=== PATIENT | male | born 1945 | race Caucasian/White ===

== ENCOUNTER → 2017-04-10 | Outpatient (CLI) | payer MEDICARE, OTHER ==
[2017-04-10 18:31] LABS: Blood Urea Nitrogen 15 mg/dL (9-20); Non-African American GFR(MDRD) >60 (>60 ml/min/1.73 sqM)
--- NOTE | 2017-04-10 19:08 | CT ---
EXAMINATION TYPE: CT chest w con DATE OF EXAM: 04/10/2017 COMPARISON: NONE HISTORY: Dry cough x [address] DLP: 386.90 mGycm Automated exposure control for dose reduction was used. CONTRAST: CT scan of the chest is performed with IV Contrast, patient injected with 100 mL of Omnipaque 300. FINDINGS: There is some mild reticular subpleural density in the posterior right upper lobe. There is no eviden ce of a pulmonary mass. There is no pleural effusion. Heart size is normal. There is no pericardial e ffusion. There are no hilar masses. There is no mediastinal adenopathy. Thoracic aorta is shows no ev idence of aneurysm or dissection. I see no obvious filling defect in the pulmonary arteries. The bony thorax appears intact. IMPRESSION: Minimal reticular density in the posterior right upper lobe consistent with scarring. Ot herwise negative CT scan of the chest. I do not see a cause for coughing.
== END ==
LOC: RADCTMAIN 17:45
PROVIDERS: ATTEND Internal Medicine
DX: R05 Cough (principal)
CPT/HCPCS: 82565; 84520; 71260; 36415; Q9967

== ENCOUNTER 2017-04-21 09:48 | Day surgery (SDC) | payer MEDICARE, OTHER ==
[~2017-04-21 09:48] MED LIST: LACTATED RINGERS 1,000 ML IV SCH; LIDOCAINE 1% 20 ML VIAL (10MG/ML) FOR IV START INTRADERMA PRN; Pre Op ABX Message 1 EACH MISC MISCELLANE ONE
[2017-04-21 11:20] LABS: Glucose,Whole Blood 100 mg/dL (75-99)
[2017-04-21] MEDS ORDERED: PROPOFOL 10 MG/ML 20 ML VIAL IV ONE (12:20)
[2017-04-21] MEDS ORDERED: GLYCOPYRROLATE 0.2 MG/ML 2 ML VIAL ONE (12:20)
[2017-04-21] MEDS ORDERED: LIDOCAINE 1% INJ 10MG/ML (20 ML MDV) ONE (12:20)
--- NOTE | 2017-04-21 13:08 | PCN ---
PROCEDURE NOTE PROCEDURE: Bronchoscopy and bronchoalveolar lavage of the inferior lingula. PREOPERATIVE DIAGNOSIS: Chronic cough. POSTOPERATIVE DIAGNOSIS: Chronic cough. ANESTHESIA USED: IV conscious sedation, please refer to the Anesthesia documentation. DESCRIPTION OF PROCEDURE: Patient was prepared according to the bronchoscope protocol. O2 was applied via nasal cannula. Oxygen saturation was monitored via pulse oximetry. Blood pressure was intermittently monitored. Cardiac rhythm was continuously monitored. After adequate IV conscious sedation, 2 mL of lidocaine were instilled into the right naris, the bronchoscope was advanced through the right naris down to the area of the vocal cords. Vocal cords were patent, and free of any lesions. Lidocaine was applied over the vocal cords, the bronchoscope was advanced further down. Thorough examination was done of the trachea, lopez, right upper lobe, right middle lobe, right lower lobe. left upper lobe. lingula and left lower lobe. There was no evidence of any endobronchial lesions, there was no evidence of any purulent secretions in the airways, and there was no evidence of any bleeding in the airways. The bronchoscope was wedged into the inferior segment of the lingula and the bronchoalveolar lavage was done. The fluid was retrieved and sent for definitive diagnostic studies. The procedure was well tolerated, no evidence of any immediate complications. MMODL / IJN: [id number] /
[2017-04-21 16:24] LABS: RBC, Body Fluid 37 /uL
[2017-04-22] MEDS ORDERED: LIDOCAINE 2% (PF) 20 MG/ML 10ML INHALATION ONE (05:00)
[2017-04-22] MEDS ORDERED: LACTATED RINGERS 1,000 ML IV ONE (05:00)
[2017-04-22] MEDS ORDERED: ALBUTEROL NEB (CONC) 2.5 MG/0.5 ML INHALATION ONE (05:00)
--- NOTE | 2017-04-24 07:02 | CDI ---
Documentation Clarification OP Dear Dr. Quigley, Please provide clarification regarding the type of sedation provided. The Procedure note states that Conscious sedation was used. On the Anesthesia Record, Unconscious Sedation is circled. PLEASE RESPOND TO THIS QUERY BY DICTATING AN ADDENDUM TO YOUR PROCEDURE NOTE. Thank you for your assistance, LUPIS Mckay If you have any questions, please contact Product Safety Lead, Katrin Paulson at [phone] [facility]
== END 2017-04-21 13:21 | disposition home or self-care (01) ==
LOC: ORWHC2ENDO 09:48
PROVIDERS: ATTEND Internal Medicine
DX: R05 Cough (principal); K21.9 Gastro-esophageal reflux disease without esophagitis; E03.9 Hypothyroidism, unspecified; E78.00 Pure hypercholesterolemia, unspecified; J30.2 Other seasonal allergic rhinitis; Z79.82 Long term (current) use of aspirin; Z79.52 Long term (current) use of systemic steroids; Z79.899 Other long term (current) drug therapy
CPT/HCPCS: 94640; 87798 ×4; 87496; 87498; 87529 ×2; 88108; 88305; 89050; 87252; 87502 ×2; 87070; 87205; 87116; 87102; 87077; 87186; 87206; 31624; J2001 ×2; J2704

== ENCOUNTER → 2018-10-01 | Outpatient (CLI) | payer MEDICARE, OTHER ==
--- NOTE | 2018-10-06 08:44 | CT ---
EXAMINATION TYPE: CT chest w con DATE OF EXAM: 10/01/2018 COMPARISON: 04/10/2017 HISTORY: Sarcoidosis, unspecified CT DLP: 555 mGycm. Automated Exposure Control for Dose Reduction was Utilized. TECHNIQUE: CT scan of the thorax is performed following with IV Contrast, patient injected with 100 mL of Isovue 300. FINDINGS: LUNGS: The lungs are grossly clear, there is no concerning parenchymal mass or nodule identified. Min imal scarring is again noted in the posterior right upper lobe as noted on the prior exam. No interlo bular septal thickening is seen. No honeycombing. No sizable pulmonary nodules. There is no pleural e ffusion or pneumothorax seen. The tracheobronchial tree is patent. MEDIASTINUM: There are no greater than 1 cm hilar or mediastinal lymph nodes. No pericardial effusi on is seen. Moderate coronary artery calcifications are seen. OTHER: There is slight thickening of the left adrenal gland, suggesting adrenal gland hyperplasia. T here is decreased attenuation of the hepatic parenchyma, limiting evaluation for hepatic masses and m ost commonly related to mild hepatic steatosis. There are bilateral renal cysts partially visualized on the right and subcentimeter in the left. There is a very small hiatal hernia present. Minimal mult ilevel degenerative changes of the spine are noted. IMPRESSION: No parenchymal or mediastinal lymphatic CT evidence of sarcoidosis involvement at this ti me. Incidental findings as described above.
== END ==
LOC: RADCTMAIN 10:41
PROVIDERS: ATTEND Internal Medicine Rheumatology
DX: D86.9 Sarcoidosis, unspecified (principal)
CPT/HCPCS: 82565; 84520; 71260; 36415; Q9967

== ENCOUNTER → 2019-05-03 | Outpatient (CLI) | payer MEDICARE ==
--- NOTE | 2019-05-03 13:48 | MR ---
EXAMINATION TYPE: MR shoulder RT wo con DATE OF EXAM: 05/03/2019 COMPARISON: Plain film 04/19/2019 HISTORY: Right shoulder pain TECHNIQUE: Multiplanar, multisequence imaging of the right shoulder is performed without contrast. FINDINGS: Rotator Cuff: Markedly attenuated, there is partial full-thickness tear present involving the suprasp inatus tendon peripherally, increased signal is present within the tendon Acromioclavicular Joint: Arthropathy changes are present causing mass effect on the musculotendinous junction of supraspinatus and there is a distal acromial spur, fluid present in the subacromial subde ltoid bursa Glenohumeral Joint: Arthropathy change with remodeling, marginal spurring and joint space loss and th ere is subchondral geode formation at the bony labrum Labrum: Labrum shows some abnormal intrasubstance signal and there is an attenuated appearance along the superior labrum compatible with possible degenerative tear, fraying Biceps Tendon: The long head of biceps is in normal location within bicipital groove but is somewhat attenuated, there is fluid signal along the tendon sheath and tendon. Bone marrow signal: Pseudocysts are present within the humeral head. Some remodeling of the humeral h ead and superior margin is present which corresponds to the plain film findings, difficult to exclude some humeral head collapse. Other: There is a joint effusion present. Fluid signal is present within the soft tissues about the j oint. IMPRESSION: Osteoarthritis, also full-thickness rotator cuff tear with marked tendinosis. Correlate for impingeme nt. Some possible humeral head collapse as described with pseudocysts present within the humeral head . Labral findings as described.
== END | disposition home or self-care (01) ==
LOC: RADMRIMAIN 09:41
PROVIDERS: ATTEND Orthopaedic Surgery
DX: M19.011 Primary osteoarthritis, right shoulder (principal); M75.121 Complete rotator cuff tear or rupture of right shoulder, not specified as traumatic

== ENCOUNTER 2019-06-16 11:05 | Day surgery (SDC) | payer MEDICARE ==
--- NOTE | 2019-06-15 20:52 | HP ---
HISTORY AND PHYSICAL DATE OF SURGERY: 06/16/2019 Daniel Mandujano is a 73-year-old patient seen with progressive right shoulder pain. We discussed treatment options. He elected to proceed with right shoulder arthroscopy. Consent was obtained. Medical clearance was provided by Dr. Hernandez. PAST MEDICAL HISTORY: Hypothyroidism, hypertension. PAST SURGICAL HISTORY: Left total knee arthroplasty. DAILY MEDICATIONS: Levothyroxine. ALLERGIES: NONE. SOCIAL HISTORY: He denies tobacco use. PHYSICAL EVALUATION OF RIGHT SHOULDER: Flexion 150 degrees. Abduction is 120 degrees. External rotation is 30 degrees with pain and weakness. Tenderness along the anterolateral acromion and rotator cuff insertion site. Impingement is positive at 90. Drop-arm sign is positive. Distal neurovascular exam is intact. RADIOGRAPHS: Radiographs of the right shoulder show type 2 anterior acromion, acromioclavicular joint osteoarthritis, cystic changes of the tuberosity. Right shoulder MRI shows rotator cuff tear, acromioclavicular and glenohumeral joint osteoarthritic changes. IMPRESSION: 1. Right shoulder impingement with rotator cuff tear. 2. Right shoulder acromioclavicular osteoarthritis. 3. Right shoulder glenohumeral joint osteoarthritis. 4. Hypothyroidism. PLAN: Right shoulder arthroscopy with subacromial decompression, arthroscopic rotator cuff repair, Lisandra procedure and debridement. MMODL / IJN: [id number] /
[~2019-06-16 11:05] MED LIST changes: +DEXAMETHASONE SOD PHOSPHATE 10 MG/ML 1 ML VIAL IV ONE; +HYDROmorphone 0.5 MG/0.5 ML SYRINGE IVP PRN; -LIDOCAINE 1% 20 ML VIAL (10MG/ML) FOR IV START INTRADERMA PRN; +ONDANSETRON 4 MG/2 ML VIAL IVP ONE; -Pre Op ABX Message 1 EACH MISC MISCELLANE ONE
[2019-06-16] MEDS ORDERED: LIDOCAINE 1% 20 ML VIAL (10MG/ML) FOR IV START INTRADERMA ONE (12:17)
[2019-06-16] MEDS: MIDAZOLAM 2 MG/2 ML VIAL IV PRN ×2 (12:39→12:40)
[2019-06-16] MEDS ORDERED: LIDOCAINE 1% INJ 10MG/ML (20 ML MDV) ONE (13:01)
[2019-06-16] MEDS ORDERED: DEXAMETHASONE SOD PHOSPHATE 4 MG/ML 1 ML VIAL ONE (13:01)
[2019-06-16] MEDS ORDERED: PROPOFOL 10 MG/ML 20 ML VIAL IV ONE (13:01)
[2019-06-16] MEDS ORDERED: ROPIVACAINE 5 MG/ML 30 ML VIAL ONE (13:01)
[2019-06-16] MEDS ORDERED: SUCCINYLCHOLINE CHLORIDE 100 MG/5 ML SYR IV ONE (13:01)
[2019-06-16] MEDS ORDERED: fentaNYL (PF) 50 MCG/ML 2 ML AMP ONE (13:01)
[2019-06-16] MEDS ORDERED: MIDAZOLAM 2 MG/2 ML VIAL ONE (13:01)
--- NOTE | 2019-06-16 15:00 | P.OP ---
Date of Procedure: 06/16/19 Preoperative Diagnosis: Right shoulder impingement Postoperative Diagnosis: 1. Right shoulder rotator cuff tear 2. Right shoulder impingement 3. Right shoulder acromioclavicular joint osteoarthritis 4. Right shoulder superficial superior labral tear Procedure(s) Performed: 1. Right shoulder arthroscopic rotator cuff repair 2. Right shoulder arthroscopic subacromial decompression 3. Right shoulder arthroscopic Lisandra procedure 4. Right shoulder arthroscopic debridement labral tear Implants: 44.75 Arthrex swivel lock anchors Anesthesia: GETA, regional (Interscalene block) Surgeon: Mac Souza [employer] Lab Worker #1: Antonio Clark Estimated Blood Loss (ml): 10 Pathology: none sent Condition: stable Disposition: PACU Indications for Procedure: 73-year-old patient seen with progressive right shoulder pain. After treatment options were discussed, he elected to proceed with arthroscopy. Operative Findings: See description of procedure Description of Procedure: Patient underwent an interscalene block by department of anesthesia for postoperative pain management. The patient was then taken to the operative suite. The patient underwent a general anesthetic by the department of anesthesia. The patient was placed into a lateral position and secured. There was appropriate padding of the bony prominence. Right shoulder was then prepped and draped in normal sterile orthopedic fashion. We placed the extremity in 10 pounds of longitudinal traction. A posterior incision was now made for a posterior working portal site. The trocar and cannula were inserted into the glenohumeral joint. Arthroscopy was initiated. Spinal needle was now inserted anteriorly, to ascertain the anterior working portal site. An incision was now made in that area, a trocar was inserted followed by a probe. There was superficial tearing of the superior labrum. The biceps tendon was absent with only a remnant stump and a few fibers. There were grade 1/2 chondromalacia changes of the glenohumeral joint with no osteochondral tears present. I debrided that superficial labral tear getting down to stable labral tissue. I debrided the residual biceps stump. Residual labrum was probed and found to be stable. Instruments were now removed from glenohumeral joint. Utilizing the posterior working portal site, the trocar and cannula were inserted into the subacromial space. Arthroscopy initiated. I made an incision 2 fingerbreadths lateral to the acromion. I introduced my trocar followed by my ArthroCare ablator. I now began ablating thick subacromial bursal tissue, which exposed the undersurface of the anterior acromion. There was diminished subacromial space. There was a very prominent anterior acromion. A motorized bur was introduced and a subacromial decompression was performed. I also excised some osteophytes off the inferior aspect of the distal clavicle. The AC joint was visualized and noted to be fairly arthritic. The motorized bur was introdu yash in the anterior portal site and a Lisandra procedure was performed without difficulty, decompressing the AC joint nicely. I turned my attention to the rotator cuff. There was a 2. 53 cm rotator cuff tear. I debrided the margins getting down to stable tendon tissue. I introduced my motorized bur and abraded the footprint area, getting some petechial bleeding. I now made an accessory portal site off the lateral aspect of the acromion. I punched 2 holes medial for medial row fixation with the assistance of [place] PEREZ carefully tapping the punch with a mallet as I held the punch and the camera. I now introduced both anchors into the pre-punched holes and [place] PEREZ tapped them with the mallet as I held anchors and the camera. Mt PEREZ now screwed the anchors in place a while I held the anchor guide and camera. All 8 limbs of suture were now passed through good bites of rotator cuff tendon. I now punched 2 holes for lateral row fixation again I held the punch and camera while [place] PEREZ used a mallet to tap in the punch. We now passed sutures through both anchors and individually I introduced the anchors into the pre-punch holes I held the anchor guide in position with one hand holding the camera with the other hand while Mt PEREZ tensioned the sutures and screwed in the anchors one at a time. All residual suture limbs were now clipped. We had good compression of the tendon along the entire footprint. I injected 1 mL Renyte intra-articular. Instruments now removed from the portal sites. All portal sites were approximated with nylon suture. Sterile dressings were applied followed by a shoulder immobilizer. Antonio PEREZ assisted in this complex case. The patient was awakened, transferred to a bed, and taken to recovery in stable c ondition.
[2019-06-16 15:03] VITALS: TEMP 96.8
[2019-06-16 15:15] VITALS: RESP 16
[2019-06-16 16:02] VITALS: BP 128/77; PULSE 79
--- NOTE | 2019-06-17 07:33 | P.ANPRN ---
Procedure Note - Anesthesia - Nerve Block Performed Right Interscalene Single Time Out Performed: Yes Date of Procedure: 06/16/19 Procedure Start Time: 12:39 Procedure Stop Time: 12:43 Location of Patient Procedure: PreOp Indication: Acute Post-Operative Pain, Requested by Surgeon Sedation Type: Sedate with meaningful contact maintained Preparation: Sterile Prep Position: Supine Needle Types: Pajunk Needle Gauge: 21 Ultrasound used to visualize needle placement: Yes Ultrasound used to observe medication spread: Yes Blood Aspirated: No Pain Paresthesia on Injection Noted: No Resistance on Injection: Normal Image Stored and Saved: Yes Events: Uneventful and Well Tolerated (ropi .5% 30cc plus dexamethasone 4mg)
== END 2019-06-16 16:17 | disposition home or self-care (01) ==
LOC: OR 11:05
PROVIDERS: ATTEND Orthopaedic Surgery
DX: M75.101 Unspecified rotator cuff tear or rupture of right shoulder, not specified as traumatic (principal); M75.41 Impingement syndrome of right shoulder; M19.011 Primary osteoarthritis, right shoulder; S43.431A Superior glenoid labrum lesion of right shoulder, initial encounter; M25.711 Osteophyte, right shoulder; X58.XXXA Exposure to other specified factors, initial encounter; I10 Essential (primary) hypertension; E03.9 Hypothyroidism, unspecified; Z96.652 Presence of left artificial knee joint; Z79.82 Long term (current) use of aspirin; Z79.890 Hormone replacement therapy
CPT/HCPCS: 29826; 29827; 29824; 64415; 76942; C1713 ×2; Q4212; J2250; J1100 ×2; J0690; J2405; J2001; J3010; J2795; J0330; J2704

== ENCOUNTER 2019-09-26 12:05 | Inpatient (IN) | payer MEDICARE ==
[2019-09-26] MEDS ORDERED: ASPIRIN 81 MG PO STA (12:50)
[2019-09-26] MEDS ORDERED: DILTIAZEM DRIP BOLUS FROM BAG 1 MG SOLN IV ONE ×3 (12:50→14:23)
--- NOTE | 2019-09-26 13:01 | ED ---
General Adult HPI - General Chief complaint: Arrhythmia/Palpitations Stated complaint: Palpitations Time Seen by Provider: 09/26/19 12:19 Source: patient, RN/MD, RN notes reviewed Mode of arrival: ambulatory Limitations: no limitations - History of Present Illness Initial comments: Patient is a pleasant 73-year-old male presenting to the emergency Department with complaints of palpitations. Onset of symptoms was a couple months ago. Symptoms have progressively worsened since that time. Patient does have some mild chest pressure. Patient feels his heart is racing. Patient does have some dyspnea with exertion. Patient has fatigue. No history of similar symptoms previously. Patient did see his primary care physician Dr. Torres prior to arriv al who recommended patient come to the emergency department. He did identify atrial flutter with a 2-1 conduction rate on EKG with a heart rate of 154. - Related Data Home Medications Medication Instructions Recorded Confirmed Aspirin 81 mg PO DAILY 04/17/17 06/13/19 Levothyroxine Sodium [Synthroid] 100 mcg PO QAM 04/17/17 06/16/19 Previous Rx's Medication Instructions Recorded Hydrocodone/Acetaminophen [[place] 1 each PO Q6HR PRN #28 tab 06/16/19 5-325] Allergies Allergy/AdvReac Type Severity Reaction Status Date / Time No Known Allergies Allergy Verified 09/26/19 12:10 Review of Systems ROS Statement: Those systems with pertinent positive or pertinent negative responses have been documented in the HPI. ROS Other: All systems not noted in ROS Statement are negative. Constitutional: Denies: fever Eyes: Denies: eye pain ENT: Denies: ear pain Respiratory: Reports: as per HPI. Denies: cough Cardiovascular: Reports: as per HPI, chest pain, palpitations Endocrine: Reports: fatigue Gastrointestinal: Denies: abdominal pain Genitourinary: Denies: dysuria Musculoskeletal: Denies: back pain Skin: Denies: rash Neurological: Denies: weakness Past Medical History Past Medical History: Osteoarthritis (OA) Additional Past Medical History / Comment(s): Chronic cough. History of Any Multi-Drug Resistant Organisms: None Reported Past Surgical History: Adenoidectomy, Hernia Repair, Joint Replacement, Orthopedic Surgery, Tonsillectomy Additional Past Surgical History / Comment(s): Left knee replaced. LEFT ARTHROSCOPY. Past Anesthesia/Blood Transfusion Reactions: No Reported Reaction Past Psychological History: No Psychological Hx Reported Smoking Status: Never smoker Past Alcohol Use History: Occasional Past Drug Use History: None Reported - Past Family History Mother Family Medical History: No Reported History General Exam Limitations: no limitations General appearance: alert, in no apparent distress Head exam: Present: normocephalic Eye exam: Present: normal appearance Neck exam: Present: normal inspection Respiratory exam: Present: normal lung sounds bilaterally Cardiovascular Exam: Present: tachycardia GI/Abdominal exam: Present: soft. Absent: tenderness Extremities exam: Present: normal inspection. Absent: pedal edema, calf tenderness Neurological exam: Present: alert Psychiatric exam: Present: normal affect, normal mood Skin exam: Present: normal color Course Vital Signs 09/26/19 09/26/19 09/26/19 12:10 13:21 14:02 Temperature 97.8 F Pulse Rate 156 H 156 H 154 H Respiratory 18 18 18 Rate Blood Pressure 135/97 126/102 127/104 O2 Sat by Pulse 96 97 95 Oximetry 09/26/19 09/26/19 14:09 14:24 Temperature Pulse Rate 154 H 154 H Respiratory 20 18 Rate Blood Pressure O2 Sat by Pulse 97 Oximetry EKG Findings - EKG Comments: EKG Findings:: Neuro complex tachycardia with a room of 156. Suspicion for underlying atrial flutter. [place] 134. QRS 78. QT to 46. QTc 412. Normal axis. Normal QRS. Nonspecific ST-T. Medical Decision Making - Medical Decision Making Patient reevaluated and updated. Heart rate 150. Cardizem drip increased. Additional bolus given. Patient updated on results and plan. Patient will be started on heparin. Case also discussed in detail with Dr. Persaud, who will admit covering for Dr. Hernandez. - Lab Data Result diagrams: 09/26/19 12:32 09/26/19 12:32 Lab Results 09/26/19 09/26/19 09/26/19 Range/Units 12:32 12:32 12:32 WBC 5.5 (3.8-10.6) k/uL RBC 4.83 (4.30-5.90) m/uL Hgb 15.2 (13.0-17.5) gm/dL Hct 46.4 (39.0-53.0) % MCV 96.0 (80.0-100.0) fL MCH 31.4 (25.0-35.0) pg MCHC 32.7 (31.0-37.0) g/dL RDW 13.3 (11.5-15.5) % Plt Count 189 (150-450) k/uL Neutrophils % 67 % Lymphocytes % 20 % Monocytes % 8 % Eosinophils % 2 % Basophils % 1 % Neutrophils # 3.7 (1.3-7.7) k/uL Lymphocytes # 1.1 (1.0-4.8) k/uL Monocytes # 0.4 (0-1.0) k/uL Eosinophils # 0.1 (0-0.7) k/uL Basophils # 0.0 (0-0.2) k/uL PT 10.6 (9.0-12.0) sec INR 1.0 (<1.2) APTT 24.2 (22.0-30.0) sec Sodium 138 (137-145) mmol/L Potassium 4.5 (3.5-5.1) mmol/L Chloride 107 (98-107) mmol/L Carbon Dioxide 25 (22-30) mmol/L Anion Gap 6 mmol/L BUN 20 (9-20) mg/dL Creatinine 0.80 (0.66-1.25) mg/dL Est GFR (CKD-EPI)AfAm >90 (>60 ml/min/1.73 sqM) Est GFR (CKD-EPI)NonAf 88 (>60 ml/min/1.73 sqM) Glucose 102 H (74-99) mg/dL Calcium 9.6 (8.4-10.2) mg/dL Magnesium 1.9 (1.6-2.3) mg/dL Total Bilirubin 0.9 (0.2-1.3) mg/dL AST 32 (17-59) U/L ALT 27 (4-49) U/L Alkaline Phosphatase 83 (38-126) U/L Creatine Kinase 163 (55-170) U/L Troponin I (0.000-0.034) ng/mL Total Protein 6.7 (6.3-8.2) g/dL Albumin 4.1 (3.5-5.0) g/dL TSH 2.460 (0.465-4.680) mIU/L Free T4 1.65 (0.78-2.19) ng/dL Free T3 pg/mL 4.6 (2.8-5.3) pg/ml 09/26/19 Range/Units 12:32 WBC (3.8-10.6) k/uL RBC (4.30-5.90) m/uL Hgb (13.0-17.5) gm/dL Hct (39.0-53.0) % MCV (80.0-100.0) fL MCH (25.0-35.0) pg MCHC (31.0-37.0) g/dL RDW (11.5-15.5) % Plt Count (150-450) k/uL Neutrophils % % Lymphocytes % % Monocytes % % Eosinophils % % Basophils % % Neutrophils # (1.3-7.7) k/uL Lymphocytes # (1.0-4.8) k/uL Monocytes # (0-1.0) k/uL Eosinophils # (0-0.7) k/uL Basophils # (0-0.2) k/uL PT (9.0-12.0) sec INR (<1.2) APTT (22.0-30.0) sec Sodium (137-145) mmol/L Potassium (3.5-5.1) mmol/L Chloride (98-107) mmol/L Carbon Dioxide (22-30) mmol/L Anion Gap mmol/L BUN (9-20) mg/dL Creatinine (0.66-1.25) mg/dL Est GFR (CKD-EPI)AfAm (>60 ml/min/1.73 sqM) Est GFR (CKD-EPI)NonAf (>60 ml/min/1.73 sqM) Glucose (74-99) mg/dL Calcium (8.4-10.2) mg/dL Magnesium (1.6-2.3) mg/dL Total Bilirubin (0.2-1.3) mg/dL AST (17-59) U/L ALT (4-49) U/L Alkaline Phosphatase (38-126) U/L Creatine Kinase (55-170) U/L Troponin I <0.012 (0.000-0.034) ng/mL Total Protein (6.3-8.2) g/dL Albumin (3.5-5.0) g/dL TSH (0.465-4.680) mIU/L Free T4 (0.78-2.19) ng/dL Free T3 pg/mL (2.8-5.3) pg/ml - Radiology Data Radiology results: image reviewed (Chest x-ray concerning for CHF) Critical Care Time Critical Care Time: Yes Total Critical Care Time: 32 Disposition Clinical Impression: Atrial flutter with rapid ventricular response Disposition: ADMITTED IP TO THIS HOSP Is patient prescribed a controlled substance at d/c from ED?: No Referrals: Yvon Hernandez MD [Primary Care Provider] - 1-2 days Decision Time: 14:31
[2019-09-26 13:05] LABS: Basophils % (A) 1 %; Eosinophils # (A) 0.1 k/uL (0-0.7); Eosinophils % (A) 2 %; HCT 46.4 % (39.0-53.0); HGB 15.2 gm/dL (13.0-17.5); Lymphocytes # (A) 1.1 k/uL (1.0-4.8); Lymphocytes % (A) 20 %; MCH 31.4 pg (25.0-35.0); MCHC 32.7 g/dL (31.0-37.0); Mean Platelet Volume 7.6; Monocytes # (A) 0.4 k/uL (0-1.0); Monocytes % (A) 8 %; Neutrophils # (A) 3.7 k/uL (1.3-7.7); Neutrophils % (A) 67 %; Platelet Count 189 k/uL (150-450); RBC 4.83 m/uL (4.30-5.90); RDW 13.3 % (11.5-15.5); WBC 5.5 k/uL (3.8-10.6)
--- NOTE | 2019-09-26 13:18 | XR ---
EXAMINATION TYPE: XR chest 2V DATE OF EXAM: 09/26/2019 COMPARISON: 10/24/2016 TECHNIQUE: PA and lateral views submitted. HISTORY: Cardiac dysrhythmia FINDINGS: A right lower lobe infiltrate and small bilateral pleural effusion. Increased interstitium with cardi omegaly. Atherosclerotic change aorta. Biapical pleural thickening. IMPRESSION: 1. Correlate for CHF. Right lower lobe infiltrate not excluded.
[2019-09-26 13:20] LABS: Partial Thromboplastin Time 24.2 sec (22.0-30.0); Prothrombin Time 10.6 sec (9.0-12.0)
[2019-09-26 13:28] LABS: ALT 27 U/L (4-49); AST 32 U/L (17-59); African American GFR (CKD) >90 (>60 ml/min/1.73 sqM); Albumin 4.1 g/dL (3.5-5.0); Alkaline Phosphatase 83 U/L (38-126); Anion Gap 6 mmol/L; Blood Urea Nitrogen 20 mg/dL (9-20); Calcium 9.6 mg/dL (8.4-10.2); Carbon Dioxide 25 mmol/L (22-30); Chloride 107 mmol/L (98-107); Creatine Kinase 163 U/L (55-170); Glucose 102 mg/dL (74-99); Magnesium 1.9 mg/dL (1.6-2.3); Non-African American GFR(CKD) 88 (>60 ml/min/1.73 sqM); Potassium 4.5 mmol/L (3.5-5.1); Sodium 138 mmol/L (137-145); Total Bilirubin 0.9 mg/dL (0.2-1.3); Total Protein 6.7 g/dL (6.3-8.2)
[2019-09-26] MEDS: DILTIAZEM 125 MG in SODIUM CHLORIDE 0.9% 100 ML IV SCH ×2 (13:35→20:28)
[2019-09-26 13:45] LABS: T4, Free (Free Thyroxine) 1.65 ng/dL (0.78-2.19)
[2019-09-26] MEDS ORDERED: ASPIRIN 325 MG TAB PO STA (14:32)
[2019-09-26] MEDS ORDERED: HEPARIN SODIUM,PORCINE 5,000 UNIT/ML 1 ML VIAL IV ONE (14:33)
[2019-09-26] MEDS: FUROSEMIDE 10 MG/ML 4 ML VIAL IV SCH ×2 (14:58→23:19)
[2019-09-26] MEDS: HEPARIN SOD,PORK IN 0.45% NACL 25,000 UNIT in 0.45% NACL 1 250ML.BAG IV SCH (14:59)
[2019-09-26] MEDS: NITROGLYCERIN OINT 1 INCH/GM PACKET TOPICAL SCH ×2 (18:55→20:08)
--- NOTE | 2019-09-26 23:37 | P.HPIM ---
History of Present Illness H&P Date: 09/26/19 Chief Complaint: Short of breath History of presenting complaint: This is a pleasant 73-year-old patient of Dr. Yvon Hernandez. No rebound rather good health. For 2 months patient been having episodes which he describes as having palpitations. Also episodes of losing energy. Getting tired easily. Sometimes elephant sitting on the chest. The symptoms have been progressive. Last night the symptoms were much worse and decided to come in. Has no other prior prior cardiac history. Review of systems: GEN.: Tired EYES: None HEENT: None NECK: None RESPIRATORY: As above CARDIOVASCULAR: As above GASTROINTESTINAL: None GENITOURINARY: Slow urinary stream MUSCULOSKELETAL: Joint pains LYMPHATICS: None HEMATOLOGICAL: None PSYCHIATRY: None NEUROLOGICAL: None Past medical history to include: Osteoarthritis Social history: Does not smoke. Alcohol occasionally. Retired. Lives alone. Family history: Reviewed, noncontributory to presentation Physical examination: VITAL SIGNS: 97.8, 156, 18, 135/97, 96% on room air GENERAL: BMI 28.3, laying in bed awake. EYES: Pupils equal. Conjunctiva normal. HEENT: External appearance of nose and ears normal, oral cavity grossly normal. NECK: JVD not raised; masses not palpable. HEART: First and second heart sounds are normal; no edema. LUNGS: Respiratory rate normal; clear to auscultation. ABDOMEN: Soft, nontender, liver spleen not palpable, no masses palpable. PSYCH: Alert and oriented x3; mood and affect normal. MUSCULOSKELETAL: Evidence of OA especially in the hands NEUROLOGICAL: Cranial nerves grossly intact; no facial asymmetry, power and sensation grossly intact. LYMPHATICS: No lymph nodes palpable in the axilla and neck INVESTIGATIONS, reviewed in the clinical context: White count 5.5 hemoglobin 15.2 platelets 189 potassium 4.5 creatinine 0.8 Troponin I less than 0.012, 0.015 proBNP 2160 TSH-normal free T4 normal Chest x-ray film personally reviewed by me-cardiomegaly and venous prominence EKG tracing-possible atrial tachycardia Assessment: -Possible uncontrolled atrial tachycardia going on for about 2 months -We'll rule out underlying cardiac ischemia -Acute congestive heart failure possibly from arrhythmia induced -Primary osteoarthritis Plan: Patient be started on IV Lasix. 2-D echocardiogram. Consultation made to cardiology/child care team lead. Care was discussed with the patient question answered. Estuardox for DVT prophylaxis. Past Medical History Past Medical History: Osteoarthritis (OA) Additional Past Medical History / Comment(s): Chronic cough. History of Any Multi-Drug Resistant Organisms: None Reported Past Surgical History: Adenoidectomy, Hernia Repair, Joint Replacement, Orthopedic Surgery, Tonsillectomy Additional Past Surgical History / Comment(s): Left knee replaced. LEFT ARTHROSCOPY. Past Anesthesia/Blood Transfusion Reactions: No Reported Reaction Past Psychological History: No Psychological Hx Reported Smoking Status: Never smoker Past Alcohol Use History: Occasional Past Drug Use History: None Reported - Past Family History Mother Family Medical History: No Reported History Medications and Allergies Home Medications Medication Instructions Recorded Confirmed Type Aspirin 81 mg PO DAILY 04/17/17 09/26/19 History Levothyroxine Sodium [Synthroid] 100 mcg PO QAM 04/17/17 09/26/19 History Meloxicam [Mobic] 15 mg PO DAILY 09/26/19 09/26/19 History Allergies Allergy/AdvReac Type Severity Reaction Status Date / Time No Known Allergies Allergy Verified 09/26/19 15:54 Physical Exam Vitals: Vital Signs Temp Pulse Pulse Resp BP BP Pulse Ox 09/26/19 20:30 98.1 F 65 18 117/76 95 09/26/19 16:00 125 H 18 110/88 97 09/26/19 15:20 99 18 122/93 96 09/26/19 14:35 133 H 18 113/96 09/26/19 14:24 154 H 18 97 09/26/19 14:09 154 H 20 09/26/19 14:02 154 H 18 127/104 95 09/26/19 13:21 156 H 18 126/102 97 09/26/19 12:10 97.8 F 156 H 18 135/97 96 Intake and Output 09/26/19 09/26/19 09/27/19 14:59 22:59 06:59 Intake Total 2.5 63.833 Output Total 2450 Balance 2.5 -2386.167 Intake: Intake, IV Titration 2.5 63.833 Amount Diltiazem 125 mg In 2.5 63.833 Sodium Chloride 0.9% 100 ml @ 5 MG/HR 5 mls/hr IV .Q24H [facility] Rx#:[id number] Output: Urine 2450 Other: Weight 89.358 kg 89.358 kg Results CBC & Chem 7: 09/26/19 12:32 09/26/19 12:32 Labs: Abnormal Lab Results - Last 24 Hours (Table) 09/26/19 09/26/19 Range/Units 12:32 20:15 APTT 48.8 H (22.0-30.0) sec Glucose 102 H (74-99) mg/dL Thrombosis Risk Factor Assmnt - Choose All That Apply Any of the Below Risk Factors Present?: Yes Other Risk Factors: Yes Each Risk Factor Represents 2 Points: Age 61-74 years Thrombosis Risk Factor Assessment Total Risk Factor Score: 2 Thrombosis Risk Factor Assessment Level: Low Risk
[2019-09-27] MEDS: DILTIAZEM 125 MG in SODIUM CHLORIDE 0.9% 100 ML IV SCH (04:59)
[2019-09-27] MEDS: FUROSEMIDE 10 MG/ML 4 ML VIAL IV SCH (06:11)
[2019-09-27] MEDS: LEVOTHYROXINE 100 MCG TAB PO SCH (06:11)
[2019-09-27 07:01] LABS: African American GFR (CKD) >90 (>60 ml/min/1.73 sqM); Anion Gap 9 mmol/L; Blood Urea Nitrogen 15 mg/dL (9-20); Calcium 9.3 mg/dL (8.4-10.2); Carbon Dioxide 27 mmol/L (22-30); Chloride 101 mmol/L (98-107); Glucose 101 mg/dL (74-99); Non-African American GFR(CKD) 88 (>60 ml/min/1.73 sqM); Potassium 3.6 mmol/L (3.5-5.1); Sodium 137 mmol/L (137-145)
[2019-09-27 07:02] LABS: Basophils # (A) 0.1 k/uL (0-0.2); Basophils % (A) 2 %; Eosinophils # (A) 0.2 k/uL (0-0.7); Eosinophils % (A) 3 %; HCT 47.1 % (39.0-53.0); HGB 15.6 gm/dL (13.0-17.5); Lymphocytes # (A) 1.3 k/uL (1.0-4.8); Lymphocytes % (A) 24 %; MCH 31.5 pg (25.0-35.0); MCHC 33.2 g/dL (31.0-37.0); MCV 95.1 fL (80.0-100.0); Mean Platelet Volume 7.3; Monocytes # (A) 0.6 k/uL (0-1.0); Monocytes % (A) 10 %; Neutrophils # (A) 3.2 k/uL (1.3-7.7); Neutrophils % (A) 58 %; Platelet Count 195 k/uL (150-450); RBC 4.96 m/uL (4.30-5.90); RDW 13.2 % (11.5-15.5); WBC 5.6 k/uL (3.8-10.6)
[2019-09-27 07:04] LABS: INR 1.1 (<1.2); Partial Thromboplastin Time 32.9 sec (22.0-30.0); Prothrombin Time 10.9 sec (9.0-12.0)
[2019-09-27] MEDS: HEPARIN SODIUM,PORCINE 5,000 UNIT/ML 1 ML VIAL IV PRN ×2 (08:02→14:17)
[2019-09-27] MEDS ORDERED: ASPIRIN 325 MG TAB PO SCH (09:00)
[2019-09-27] MEDS ORDERED: MELOXICAM 7.5 MG TAB PO SCH (09:00)
--- NOTE | 2019-09-27 09:09 | P.CRDCN ---
History of Present Illness Consult date: 09/27/19 Requesting physician: Yomi Persaud Consult reason: atrial flutter Chief complaint: Chest pressure , shortness of breath History of present illness: His is a pleasant 73-year-old gentleman with no prior documented history of hypertension, no diabetes, no hyperlipidemia, he is a nonsmoker, he does have a history of hypothyroidism. His home medications include Mobic 15 mg daily, Synthroid 100 g daily, aspirin 81 mg daily. According to the patient, for the last month and a half, he has been noticing himself to be exertionally short of breath. He states that he also gets midsternal chest pressure and heaviness, with associated shortness of breath, worse with activities. He does feel his heart fluttering at times. For these reasons he came to the emergency room for further evaluation and treatment. His chest x-ray on presentation here showed congestive heart failure. Right lower lobe infiltrate not excluded. EKG on presentation here showed atrial flutter with a rapid ventricular response. Patient was initiated on IV Cardizem drip, he continues to be in an atrial flu tter this morning, heart rate in the 70s to 80s. White blood cell count 5.6, hemoglobin 15.6, platelet count 195. Sodium 137, potassium 3.6, BUN 15, creatinine 0.8, magnesium 1.9. Troponins 0.012, 0.015, 0.015. TSH 2.4, free T4 1 0.6, BNP level 2160. At the time of my examination this morning, patient feels well, no complaints. Resting comfortably in bed at the time of my examination Past Medical History Past Medical History: Osteoarthritis (OA) Additional Past Medical History / Comment(s): Chronic cough. History of Any Multi-Drug Resistant Organisms: None Reported Past Surgical History: Adenoidectomy, Hernia Repair, Joint Replacement, Orthopedic Surgery, Tonsillectomy Additional Past Surgical History / Comment(s): Left knee replaced. LEFT ART HROSCOPY. Past Anesthesia/Blood Transfusion Reactions: No Reported Reaction Past Psychological History: No Psychological Hx Reported Smoking Status: Never smoker Past Alcohol Use History: Occasional Past Drug Use History: None Reported - Past Family History Mother Family Medical History: No Reported History Medications and Allergies Home Medications Medication Instructions Recorded Confirmed Type Aspirin 81 mg PO DAILY 04/17/17 09/26/19 History Levothyroxine Sodium [Synthroid] 100 mcg PO QAM 04/17/17 09/26/19 History Meloxicam [Mobic] 15 mg PO DAILY 09/26/19 09/26/19 History Allergies Allergy/AdvReac Type Severity Reaction Status Date / Time No Known Allergies Allergy Verified 09/26/19 15:54 Physical Exam Vitals: Vital Signs Temp Pulse Pulse Resp BP BP Pulse Ox 09/27/19 03:02 79 16 107/65 95 09/26/19 23:19 97.4 F L 92 18 116/78 96 09/26/19 20:30 98.1 F 65 18 117/76 95 09/26/19 16:00 125 H 18 110/88 97 09/26/19 15:20 99 18 122/93 96 09/26/19 14:35 133 H 18 113/96 09/26/19 14:24 154 H 18 97 09/26/19 14:09 154 H 20 09/26/19 14:02 154 H 18 127/104 95 09/26/19 13:21 156 H 18 126/102 97 09/26/19 12:10 97.8 F 156 H 18 135/97 96 Intake and Output 09/26/19 09/27/19 09/27/19 22:59 06:59 14:59 Intake Total 63.833 85.167 169.284 Output Total 2450 2490 800 Balance -2386.167 -2404.833 -630.716 Intake: Intake, IV Titration 63.833 85.167 169.284 Amount Diltiazem 125 mg In 63.833 85.167 Sodium Chloride 0.9% 100 ml @ 5 MG/HR 5 mls/hr IV .Q24H [facility] Rx#:[id number] Heparin Sod,Pork in 0.45% 169.284 NaCl 25,000 unit In 0.45 % NaCl 1 250ml.bag @ 11.1 UNITS/KG/HR 9.919 mls/hr IV .Q24H [facility] Rx#: [id number] Output: Urine 2450 2490 800 Other: # Voids 1 Weight 89.358 kg 85.2 kg PHYSICAL EXAMINATION: GENERAL: 73-year-old gentleman in no acute distress at the time of my examination HEENT: Head is atraumatic, normocephalic. Pupils equal, round. Sclera anicteric. Conjunctiva are clear. Mucous membranes of the mouth are moist. Neck is supple. There is no elevated jugular venous pressure. No carotid bruit is heard. HEART EXAMINATION: Heart S1 and S2 irregularly irregular CHEST EXAMINATION: Lungs are clear with mild diminished air entry to the bases ABDOMEN: Soft, nontender. Bowel sounds are heard. No organomegaly noted. EXTREMITIES: 2+ peripheral pulses with no evidence of peripheral edema and no calf tenderness noted. NEUROLOGIC patient is awake, alert and oriented 3 . . Results 09/27/19 06:09 09/27/19 06:09 Cardiac Enzymes 09/26/19 09/26/19 09/26/19 Range/Units 12:32 12:32 18:25 AST 32 (17-59) U/L Troponin I <0.012 0.015 (0.000-0.034) ng/mL 09/27/19 Range/Units 00:51 AST (17-59) U/L Troponin I 0.015 (0.000-0.034) ng/mL Coagulation 09/26/19 09/26/19 09/27/19 Range/Units 12:32 20:15 06:09 PT 10.6 10.9 (9.0-12.0) sec APTT 24.2 48.8 H 32.9 H (22.0-30.0) sec CBC 09/26/19 09/27/19 Range/Units 12:32 06:09 WBC 5.5 5.6 (3.8-10.6) k/uL RBC 4.83 4.96 (4.30-5.90) m/uL Hgb 15.2 15.6 (13.0-17.5) gm/dL Hct 46.4 47.1 (39.0-53.0) % Plt Count 189 195 (150-450) k/uL Comprehensive Metabolic Panel 09/26/19 09/27/19 Range/Units 12:32 06:09 Sodium 138 137 (137-145) mmol/L Potassium 4.5 3.6 (3.5-5.1) mmol/L Chloride 107 101 (98-107) mmol/L Carbon Dioxide 25 27 (22-30) mmol/L BUN 20 15 (9-20) mg/dL Creatinine 0.80 0.81 (0.66-1.25) mg/dL Glucose 102 H 101 H (74-99) mg/dL Calcium 9.6 9.3 (8.4-10.2) mg/dL AST 32 (17-59) U/L ALT 27 (4-49) U/L Alkaline Phosphatase 83 (38-126) U/L Total Protein 6.7 (6.3-8.2) g/dL Albumin 4.1 (3.5-5.0) g/dL Current Medications Generic Name Dose Route Start Last Admin Trade Name Freq PRN Reason Stop Dose Admin Aspirin 325 mg 09/27/19 09:00 09/27/19 08:21 Aspirin PO 325 mg DAILY [facility] Administration Furosemide 40 mg 09/26/19 14:45 09/27/19 06:11 Lasix IV 40 mg Q8H [facility] Administration Heparin Sodium (Porcine) 0 unit 09/26/19 14:33 09/27/19 08:02 Heparin IV 4,000 unit PER PROTOCOL PRN Administration Low PTT Protocol Diltiazem HCl 125 mg/ Sodium 125 mls @ 5 mls/hr 09/26/19 13:00 09/27/19 04:59 Chloride IV 10 mg/hr .Q24H [facility] 10 mls/hr Administration 5 MG/HR Heparin Sodium/Sodium Chloride 250 mls @ 9.919 mls/hr 09/26/19 14:45 09/27/19 08:03 25,000 unit/ Sodium Chloride IV 14.1 units/kg/hr .Q24H [facility] 12.599 mls/hr Titration Protocol 11.1 UNITS/KG/HR Levothyroxine Sodium 100 mcg 09/27/19 06:30 09/27/19 06:11 Synthroid PO 100 mcg 0630 [facility] Administration Meloxicam 15 mg 09/27/19 09:00 09/27/19 08:19 Mobic PO 15 mg DAILY [facility] Administration Sodium Chloride 10 ml 09/26/19 21:00 09/27/19 08:21 Saline Flush IV 10 ml BID [facility] Administration Intake and Output 09/26/19 09/27/19 09/27/19 22:59 06:59 14:59 Intake Total 63.833 85.167 169.284 Output Total 2780 6860 800 Balance -2386.167 -2404.833 -630.716 Intake: Intake, IV Titration 63.833 85.167 169.284 Amount Diltiazem 125 mg In 63.833 85.167 Sodium Chloride 0.9% 100 ml @ 5 MG/HR 5 mls/hr IV .Q24H [facility] Rx#:[id number] Heparin Sod,Pork in 0.45% 169.284 NaCl 25,000 unit In 0.45 % NaCl 1 250ml.bag @ 11.1 UNITS/KG/HR 9.919 mls/hr IV .Q24H [facility] Rx#: [id number] Output: Urine 2450 2490 800 Other: # Voids 1 Weight 89.358 kg 85.2 kg 09/27/19 06:09 09/27/19 06:09 EKG Interpretations (text) EKG shows atrial flutter with rapid ventricular response Assessment and Plan Plan: Assessment and plan #1 atrial flutter with rapid ventricular response, typical #2 cardiac risk factors negative for hypertension, no diabetes, no hyperlipidemia, patient is a nonsmoker #3 hypothyroidism #4 mild congestive heart failure, LV function unknown, could be secondary to rapid atrial flutter of unknown duration #5 chest pressure and heaviness with associated shortness of breath, likely secondary to rapid atrial flutter, cannot rule out underlying coronary artery disease. Initial troponin 0.012, subsequent troponin 0.015, 0.015. Plan We will obtain an echocardiogram with Doppler study. Patient's TSH level is normal. Patient has been educated regarding anticoagulation for stroke prevention. We will decrease his aspirin to 81 mg daily, add a beta everardo to his medication regime and discontinue the IV Cardizem. Discontinue Mobic. had been initiated on 40 mg of IV Lasix every 8 hourly yesterday, we will discontinue that this morning and put the patient on oral diuretics. Further recommendations to follow. DNP note has been reviewed, I agree with a documented findings and plan of care. Patient was seen and examined.
[2019-09-27] MEDS ORDERED: METOPROLOL TARTRATE 25 MG TAB PO SCH (09:15)
[2019-09-27] MEDS: FUROSEMIDE 40 MG TAB PO SCH (09:43)
[2019-09-27] MEDS ORDERED: ASPIRIN 325 MG TAB PO STA (11:02)
[2019-09-27] MEDS ORDERED: ALPRAZolam 0.5 MG TAB PO PRN (11:02)
[2019-09-27] MEDS ORDERED: SODIUM CHLORIDE 0.9% 1,000 ML in EMPTY BAG 1 BAG IV ONE (11:02)
[2019-09-27] MEDS ORDERED: ALPRAZolam 0.25 MG TAB PO PRN (11:02)
[2019-09-27] MEDS ORDERED: NITROGLYCERIN SL TABS 0.4 MG TAB SUBLINGUAL PRN (11:02)
[2019-09-27] MEDS ORDERED: ATORVASTATIN 80 MG TAB PO STA (11:02)
[2019-09-27 11:37] VITALS: BMI 26.9
[2019-09-27] MEDS: HEPARIN SOD,PORK IN 0.45% NACL 25,000 UNIT in 0.45% NACL 1 250ML.BAG IV SCH (14:18)
[2019-09-27] MEDS ORDERED: METOPROLOL TARTRATE 50 MG TAB PO STA (17:18)
--- NOTE | 2019-09-27 18:21 | P.PN ---
Progress Note - Text Progress Note Date: 09/27/19 Chief Complaint: Short of breath History of presenting complaint: This is a pleasant 73-year-old patient of Dr. Yvon Hernandez. rather good health. For 2 months patient been having episodes which he describes as having palpitations. Also episodes of losing energy. Getting tired easily. Sometimes elephant sitting on the chest. The symptoms have been progressive. Last night the symptoms were much worse and decided to come in. Has no other prior prior cardiac history. Admitted with-atrial flutter versus atrial tachycardia Today-feeling a bit better. On IV Cardizem drip. IV heparin. Heart is better controlled. Laying in bed. Review of systems: Was done for constitutional, cardiovascular, GI, pulmonary. relevant finding as above Active Medications Alprazolam (Xanax) 0.25 mg PO Q6HR PRN PRN Reason: Mild Anxiety Alprazolam (Xanax) 0.5 mg PO Q6HR PRN PRN Reason: Moderate Anxiety Aspirin (Aspirin) 81 mg PO DAILY [facility] Furosemide (Lasix) 40 mg PO DAILY [facility] Last Admin: 09/27/19 09:43 Dose: Not Given Documented by: Heparin Sodium (Porcine) (Heparin) 0 unit IV PER PROTOCOL PRN; Protocol PRN Reason: Low PTT Last Admin: 09/27/19 14:17 Dose: 2,130 unit Documented by: Heparin Sodium/Sodium Chloride (25,000 unit/ Sodium Chloride) 250 mls @ 9.919 mls/hr IV .Q24H [facility]; Protocol Last Titration: 09/27/19 17:27 Dose: 16.1 units/kg/hr, 14.39 mls/hr Documented by: Sodium Chloride 1,000 ml/ IV (Solution) 1,000 mls @ 85.2 mls/hr IV .[id number] ONE Stop: 09/27/19 22:46 Last Admin: 09/27/19 17:24 Dose: 85.2 mls/hr Documented by: Levothyroxine Sodium (Synthroid) 100 mcg PO 0630 [facility] Last Admin: 09/27/19 06:11 Dose: 100 mcg Documented by: Metoprolol Tartrate (Lopressor) 50 mg PO BID [facility] Nitroglycerin (Nitrostat) 0.4 mg SUBLINGUAL Q5M PRN PRN Reason: Chest Pain Sodium Chloride (Saline Flush) 10 ml IV BID [facility] Last Admin: 09/27/19 08:21 Dose: 10 ml Documented by: Physical examination: VITAL SIGNS: 98, 95, 14, 101/68, 96% on room air GENERAL: Laying in bed, comfortable. EYES: Pupils equal. Conjunctiva normal. HEENT: External appearance of nose and ears normal, oral cavity grossly normal. NECK: JVD not raised; masses not palpable. HEART: Heart sounds irregular; no edema. LUNGS: Respiratory rate normal; clear to auscultation. ABDOMEN: Soft, nontender, liver spleen not palpable, no masses palpable. PSYCH: Alert and oriented x3; mood and affect normal. MUSCULOSKELETAL: Evidence of OA especially in the hands INVESTIGATIONS, reviewed in the clinical context: White count 5.6 hemoglobin 15.6 potassium 3.6 creatinine 0.81 Previous testing White count 5.5 hemoglobin 15.2 platelets 189 potassium 4.5 creatinine 0.8 Troponin I less than 0.012, 0.015 proBNP 2160 TSH-normal free T4 normal Chest x-ray film personally reviewed by me-cardiomegaly and venous prominence EKG tracing-possible atrial tachycardia Assessment: -Possible atrial flutter with a rapid ventricular rate, rate better controlled -We'll rule out underlying cardiac ischemia -Acute congestive heart failure possibly from arrhythmia induced -Primary osteoarthritis Plan: Patient's age by cardiology to by mouth Lasix. Patient is on IV heparin and Lopressor. Follow along
[2019-09-28] MEDS ORDERED: DILTIAZEM 125 MG in SODIUM CHLORIDE 0.9% 100 ML IV SCH (02:00)
[2019-09-28 04:12] LABS: Basophils # (A) 0.1 k/uL (0-0.2); Basophils % (A) 1 %; Eosinophils # (A) 0.1 k/uL (0-0.7); Eosinophils % (A) 3 %; HCT 48.5 % (39.0-53.0); HGB 15.4 gm/dL (13.0-17.5); Lymphocytes # (A) 1.7 k/uL (1.0-4.8); Lymphocytes % (A) 32 %; MCH 30.4 pg (25.0-35.0); MCHC 31.8 g/dL (31.0-37.0); MCV 95.4 fL (80.0-100.0); Mean Platelet Volume 7.3; Monocytes # (A) 0.6 k/uL (0-1.0); Monocytes % (A) 10 %; Neutrophils # (A) 2.8 k/uL (1.3-7.7); Neutrophils % (A) 51 %; Platelet Count 187 k/uL (150-450); RBC 5.08 m/uL (4.30-5.90); RDW 13.2 % (11.5-15.5); WBC 5.4 k/uL (3.8-10.6)
[2019-09-28 04:21] LABS: INR 1.1 (<1.2); Prothrombin Time 11.4 sec (9.0-12.0)
[2019-09-28 06:02] LABS: Glucose,Whole Blood 94 mg/dL (75-99)
[2019-09-28] MEDS: LEVOTHYROXINE 100 MCG TAB PO SCH (06:02)
[2019-09-28] MEDS: ASPIRIN 81 MG PO SCH ×2 (06:03→08:17)
--- NOTE | 2019-09-28 07:56 | ECHOF ---
Referral Reason:CHF MEASUREMENTS -------- HEIGHT: 177.8 cm WEIGHT: 84.8 kg BP: 107/65 RVIDd: 3.7 cm (< 3.3) IVSd: 1.2 cm (0.6 - 1.1) LVIDd: 5.0 cm (3.9 - 5.3) LVPWd: 1.0 cm (0.6 - 1.1) IVSs: 1.9 cm LVIDs: 3.3 cm LVPWs: 2.1 cm LA Diam: 4.4 cm (2.7 - 3.8) LAESV Index (A-L): 43.05 ml/m Ao Diam: 3.5 cm (2.0 - 3.7) AV Cusp: 1.8 cm (1.5 - 2.6) MV EXCURSION: 13.883 mm (> 18.000) MV EF SLOPE: 124 mm/s (70 - 150) EPSS: 1.1 cm AR PHT: 828 ms RAP: 5.00 mmHg RVSP: 27.04 mmHg FINDINGS -------- The rhythm appears to be atrial flutter. This was a technically good study. The left ventricular size is normal. There is borderline concentric left ventricular hypertrophy. Overall left ventricular systolic function is mild-moderately impaired with, an EF between 40 - 45 % . The right ventricle is mild to moderately enlarged. LA is severely dilated >40 ml/m2 The right atrium is normal in size. Interatrial and interventricular septum intact. There is mild aortic valve sclerosis. There is mild aortic regurgitation. The mitral valve leaflets are mildly thickened. Mild mitral annular calcification present. Mild-t o-moderate mitral regurgitation is present. Mild tricuspid regurgitation present. Right ventricular systolic pressure is normal at < 35 mmHg. There is no pulmonic regurgitation present. The aortic root size is normal. Normal inferior vena cava with normal inspiratory collapse consistent with estimated right atrial pre ssure of 5 mmHg. The inferior vena cava is mildly dilated. There is no pericardial effusion. CONCLUSIONS -------- 1. The rhythm appears to be atrial flutter. 2. This was a technically good study. 3. The left ventricular size is normal. 4. There is borderline concentric left ventricular hypertrophy. 5. The right ventricle is mild to moderately enlarged. 6. LA is severely dilated >40 ml/m2 7. The right atrium is normal in size. 8. Interatrial and interventricular septum intact. 9. There is mild aortic valve sclerosis. 10. There is mild aortic regurgitation. 11. The mitral valve leaflets are mildly thickened. 12. Mild mitral annular calcification present. 13. [id number]-[id number] mitral regurgitation is present. 14. Mild tricuspid regurgitation present. 15. Right ventricular systolic pressure is normal at < 35 mmHg. 16. There is no pulmonic regurgitation present. 17. The aortic root size is normal. 18. Normal inferior vena cava with normal inspiratory collapse consistent with estimated right atrial pressure of 5 mmHg. 19. The inferior vena cava is mildly dilated. 20. There is no pericardial effusion. WELDER REPAIR: Lucretia Burger RDCS
[2019-09-28] MEDS: FUROSEMIDE 40 MG TAB PO SCH (08:17)
[2019-09-28] MEDS ORDERED: LIDOCAINE 1% INJ 10MG/ML (20 ML MDV) ONE (08:57)
[2019-09-28] MEDS ORDERED: fentaNYL (PF) 50 MCG/ML 2 ML AMP ONE (08:57)
[2019-09-28] MEDS ORDERED: METOPROLOL TARTRATE 50 MG TAB PO SCH (09:00)
[2019-09-28] MEDS ORDERED: MIDAZOLAM 2 MG/2 ML VIAL IV ONE (09:25)
[2019-09-28] MEDS ORDERED: fentaNYL (PF) 50 MCG/ML 2 ML AMP IV ONE (09:25)
[2019-09-28] MEDS ORDERED: LIDOCAINE 1% INJ 10MG/ML (20 ML MDV) SQ ONE (09:25)
[2019-09-28] MEDS ORDERED: IV FLUID CONTINUATION 900 ML IV ONE (09:36)
[2019-09-28] MEDS ORDERED: IOPAMIDOL-370 125ML BTL INJ ONE (09:43)
[2019-09-28] MEDS ORDERED: RX INFO: IV CONTRAST WAS GIVEN 1 EACH MISC MISCELLANE PRN (09:53)
--- NOTE | 2019-09-28 10:18 | CC ---
CARDIAC CATHETERIZATION REPORT INDICATION: Unstable angina. This is a 73-year-old gentleman who was admitted to hospital with atrial flutter with rapid ventricular rate. He complained of precordial chest pressure that was suggestive of unstable angina due to which I advised him to undergo cardiac catheterization for further evaluation. He had been explained of risks, benefits and alternatives understood and accepted. PROCEDURE NOTE: After obtaining informed consent, left heart catheterization and coronary angiogram were performed via the right femoral artery using standard Amy catheters. The patient was hypotensive following sedation. I gave him fluids and I stopped the Cardizem that he was on. He remained alert and tolerated the procedure fine. Patient received moderate conscious sedation. Total sedation time was 19 minutes. FINDINGS: 1. Left ventricular end-diastolic pressure is 10 mm. There is no significant gradient across the aortic valve. 2. LEFT VENTRICULOGRAM: Left ventriculogram is not performed. 3. ANGIOGRAPHIC DATA: Left Main Coronary Artery: Left main coronary artery is a normal-sized vessel and is free of stenosis. Divides into left anterior descending coronary artery and circumflex coronary artery. LAD shows a moderate atherosclerotic plaque in its midportion at its worst it seems to be a 50% stenosis. Circumflex coronary artery and its branches are free of significant stenosis. Right coronary artery is a large dominant vessel and is free of significant disease. CONCLUSION: Moderate lesion within the mid LAD. PLAN: Patient will be treated with optimal medical therapy. If he has more symptoms with medical therapy, I will anticoagulate him and cardiovert him in 3 weeks. If necessary, I will do a stress test to assess for ischemia in LAD distribution. MMODL / IJN: [id number] /
--- NOTE | 2019-09-28 10:24 | LTR ---
September 28, 2019 Re: Daniel Delbert Dear Dr. Hernandez: I performed cardiac catheterization on Daniel Mandujano. A detailed catheterization note is enclosed for your records. In brief, the cardiac catheterization revealed moderate stenosis involving mid LAD. The plan at this stage is to treat him with optimal medical therapy and anticoagulate him and consider cardioversion on him down the road. Thank you for allowing me to participate in the care of this pleasant gentleman. Sincerely, MD KHUSHBU Goldberg / DIANA: [id number] /
[2019-09-28] MEDS: SODIUM CHLORIDE 0.9% 1,000 ML IV SCH ×2 (11:47→21:10)
[2019-09-28] MEDS ORDERED: RIVAROXABAN 20 MG TAB PO SCH (17:30)
[2019-09-28] MEDS: METOPROLOL TARTRATE 25 MG TAB PO SCH (21:10)
--- NOTE | 2019-09-28 23:20 | P.PN ---
Progress Note - Text Progress Note Date: 09/28/19 Chief Complaint: Short of breath History of presenting complaint: This is a pleasant 73-year-old patient of Dr. Yvon Hernandez. rather good health. For 2 months patient been having episodes which he describes as having palpitations. Also episodes of losing energy. Getting tired easily. Sometimes elephant sitting on the chest. The symptoms have been progressive. Last night the symptoms were much worse and decided to come in. Has no other prior prior cardiac history. Admitted with-atrial flutter uncontrolled. Started and IV Cardizem drip. IV heparin. Today-had an episode of increased heart rate last night. Underwent cardiac catheterization today. Moderate disease found. Review of systems: Was done for constitutional, cardiovascular, GI, pulmonary. relevant finding as above Active Medications Alprazolam (Xanax) 0.25 mg PO Q6HR PRN PRN Reason: Mild Anxiety Alprazolam (Xanax) 0.5 mg PO Q6HR PRN PRN Reason: Moderate Anxiety Aspirin (Aspirin) 81 mg PO DAILY [facility] Last Admin: 09/28/19 08:17 Dose: 81 mg Documented by: Furosemide (Lasix) 40 mg PO DAILY [facility] Last Admin: 09/28/19 08:17 Dose: 40 mg Documented by: Sodium Chloride (Saline 0.9%) 1,000 mls @ 75 mls/hr IV .[id number] [facility] Last Admin: 09/28/19 21:10 Dose: 75 mls/hr Documented by: Levothyroxine Sodium (Synthroid) 100 mcg PO 0630 [facility] Last Admin: 09/28/19 06:02 Dose: 100 mcg Documented by: Metoprolol Tartrate (Lopressor) 25 mg PO BID [facility] Last Admin: 09/28/19 21:10 Dose: 25 mg Documented by: Miscellaneous Information (Rx Info: Iv Contrast Was Given) 1 each MISCELLANE DAILY PRN PRN Reason: Per Protocol Stop: 09/30/19 09:53 Nitroglycerin (Nitrostat) 0.4 mg SUBLINGUAL Q5M PRN PRN Reason: Chest Pain Rivaroxaban (Xarelto) 20 mg PO W/SUPPER [facility] Last Admin: 09/28/19 15:49 Dose: 20 mg Documented by: Sodium Chloride (Saline Flush) 10 ml IV BID [facility] Last Admin: 09/28/19 21:11 Dose: Not Given Documented by: Physical examination: VITAL SIGNS: 97.5, 16, 84, 103/71, 93% room air GENERAL: Laying in bed, awake EYES: Pupils equal. Conjunctiva normal. HEENT: External appearance of nose and ears normal, oral cavity grossly normal. NECK: JVD not raised; masses not palpable. HEART: Heart sounds irregular; no edema. LUNGS: Respiratory rate normal; clear to auscultation. ABDOMEN: Soft, nontender, liver spleen not palpable, no masses palpable. PSYCH: Alert and oriented x3; mood and affect normal. MUSCULOSKELETAL: Evidence of OA especially in the hands INVESTIGATIONS, reviewed in the clinical context: White count 5.6 hemoglobin 15.6 potassium 3.6 creatinine 0.81 Previous testing White count 5.5 hemoglobin 15.2 platelets 189 potassium 4.5 creatinine 0.8 Troponin I less than 0.012, 0.015 proBNP 2160 TSH-normal free T4 normal Chest x-ray film personally reviewed by me-cardiomegaly and venous prominence EKG tracing-possible atrial tachycardia Cardiac catheterization-50% disease in LAD 2-D echo-EF 40-45% Assessment: -Possible atrial flutter with a rapid ventricular rate, intermittently uncontrolled on IV Cardizem drip -Nonobstructive moderate 50% disease in the LAD -Acute congestive heart failure exacerbation with EF of 40-45%, possibly arrhythmia induced -Primary osteoarthritis -IV heparin monitoring Plan: Patient underwent cardiac catheterization today. Remains on IV heparin. IV Cardizem earlier. Discussed with patient. Follow with cardiology.
[2019-09-29 02:20] VITALS: TEMP 97.4
[2019-09-29] MEDS: LEVOTHYROXINE 100 MCG TAB PO SCH (05:51)
[2019-09-29 07:17] LABS: Basophils # (A) 0.1 k/uL (0-0.2); Basophils % (A) 1 %; Eosinophils # (A) 0.1 k/uL (0-0.7); Eosinophils % (A) 2 %; HCT 47.6 % (39.0-53.0); Lymphocytes # (A) 1.6 k/uL (1.0-4.8); Lymphocytes % (A) 31 %; MCH 30.3 pg (25.0-35.0); MCHC 31.6 g/dL (31.0-37.0); MCV 96.2 fL (80.0-100.0); Mean Platelet Volume 7.5; Monocytes # (A) 0.5 k/uL (0-1.0); Monocytes % (A) 10 %; Neutrophils # (A) 2.8 k/uL (1.3-7.7); Neutrophils % (A) 53 %; Platelet Count 174 k/uL (150-450); RBC 4.95 m/uL (4.30-5.90); RDW 13.2 % (11.5-15.5); WBC 5.3 k/uL (3.8-10.6)
[2019-09-29 07:21] LABS: INR 1.2 (<1.2); Prothrombin Time 12.3 sec (9.0-12.0)
[2019-09-29] MEDS: METOPROLOL TARTRATE 25 MG TAB PO SCH (08:44)
[2019-09-29] MEDS: ASPIRIN 81 MG PO SCH (08:44)
[2019-09-29] MEDS: FUROSEMIDE 40 MG TAB PO SCH (08:44)
[2019-09-29 08:49] VITALS: BP 123/84; PULSE 86; RESP 16
--- NOTE | 2019-09-29 13:35 | P.PN ---
Subjective Progress Note Date: 09/29/19 THis is a pleasant 73-year-old gentleman with no prior documented history of hypertension, no diabetes, no hyperlipidemia, he is a nonsmoker, he does have a history of hypothyroidism. His home medications include Mobic 15 mg daily, Synthroid 100 g daily, aspirin 81 mg daily. According to the patient, for the last month and a half, he has been noticing himself to be exertionally short of breath. He states that he also gets midsternal chest pressure and heaviness, with associated shortness of breath, worse with activities. He does feel his heart fluttering at times. For these reasons he came to the emergency room for further evaluation and treatment. His chest x-ray on presentation here showed congestive heart failure. Right lower lobe infiltrate not excluded. EKG on presentation here showed atrial flutter with a rapid ventricular response. Patient was initiated on IV Cardizem drip, he continues to be in an atrial flutter this morning, heart rate in the 70s to 80s. White blood cell count 5.6, hemoglobin 15.6, platelet count 195. Sodium 137, potassium 3.6, BUN 15, creatin ine 0.8, magnesium 1.9. Troponins 0.012, 0.015, 0.015. TSH 2.4, free T4 1 0.6, BNP level 2160. At the time of my examination this morning, patient feels well, no complaints. Resting comfortably in bed at the time of my examination. 09/29/2011 Patient underwent a cardiac catheterization yesterday which revealed a moderate lesion within the mid LAD, medical therapy was advised. He was also initiated on Xarelto for anticoagulation. Patient was seen and examined this morning, he feels well, denies any chest discomfort, no shortness of breath, no palpitations. Let pressure 122/80 with a heart rate in the 80s, 94% on room air. Blood cell count 5.3, hemoglobin 15, platelet count 174. Objective - Vital Signs Vital signs: Vital Signs Temp 97.4 F L 09/29/19 04:00 Pulse 86 09/29/19 08:00 Resp 16 09/29/19 12:00 BP 123/84 09/29/19 08:00 Pulse Ox 94 L 09/29/19 08:00 Intake & Output 09/28/19 09/29/1920 18:59 06:59 18:59 Intake Total 676 600 236 Output Total 100 300 500 Balance 576 300 -264 Weight 87.1 kg Intake: IV 200 Intake, IV Titration 600 Amount Sodium Chloride 0.9% 1, 600 000 ml @ 75 mls/hr IV . [id number] [facility] Rx#:[id number] Oral 476 236 Output: Urine 100 300 500 Other: Voiding Method Toilet Toilet Toilet Urinal Urinal Urinal # Voids 1 # Bowel Movements 0 - Exam PHYSICAL EXAMINATION: GENERAL: 73-year-old gentleman in no acute distress at the time of my examination HEENT: Head is atraumatic, normocephalic. Pupils equal, round. Sclera anicteric. Conjunctiva are clear. Mucous membranes of the mouth are moist. Neck is supple. There is no elevated jugular venous pressure. No carotid bruit is heard. HEART EXAMINATION: Heart S1 and S2 irregularly irregular CHEST EXAMINATION: Lungs are clear with mild diminished air entry to the bases ABDOMEN: Soft, nontender. Bowel sounds are heard. No organomegaly noted. EXTREMITIES: 2+ peripheral pulses with no evidence of peripheral edema and no calf tenderness noted. Right groin soft, no evidence of any hematoma. NEUROLOGIC patient is awake, alert and oriented 3 . . - Labs CBC & Chem 7: 09/29/19 06:18 09/27/19 06:09 Labs: Abnormal Lab Results - Last 24 Hours (Table) 09/29/19 Range/Units 06:18 PT 12.3 H (9.0-12.0) sec INR 1.2 H (<1.2) Assessment and Plan Plan: Assessment and plan #1 atrial flutter with rapid ventricular response, typical #2 cardiac risk factors negative for hypertension, no diabetes, no hyperlipidemia, patient is a nonsmoker #3 hypothyroidism #4 mild congestive heart failure, LV function unknown, could be secondary to rapid atrial flutter of unknown duration #5 chest pressure and heaviness with associated shortness of breath, likely secondary to rapid atrial flutter, cannot rule out underlying coronary artery disease. Initial troponin 0.012, subsequent troponin 0.015, 0.015. Plan Patient underwent a cardiac catheterization yesterday which revealed a lesion in the LAD, medical therapy was advised. From our perspective he may be able to be discharged home today, follow-up appointment with Dr. Falcon in the office in 4 weeks. DNP note has been reviewed, I agree with a documented findings and plan of care. Patient was seen and examined.
--- NOTE | 2019-10-01 01:03 | CDI ---
Documentation Clarification Form Date: 10/01/2019 From: Topher Amador Phone: If you have a question about this query, please contact Lizabeth Paulson Building Insulation Supervisor at [phone] between 8am and 5pm. Admit Date: 09/26/2019 Discharge Date: 09/29/2019 Patient Name: Topher Amador Visit Number: [id number] ATTENTION: The Clinical Documentation Specialists (CDI) and [facility] Coding Staff appreciate your assistance in clarifying documentation. Please respond to the clarification below the line at the bottom and electronically sign. The CDI & [facility] Coding staff will review the response and follow-up if needed. Please note: Queries are made part of the Legal Health Record. If you have any questions, please contact the author of this message via ITS. Dear Yomi Weller., CHF is documented in the 09/[address] Ezekiel Medina as "mild congestive heart failure, LV function unknown, could be secondary to rapid atrial flutter of unknown duration". History/Risk Factors: Atrial flutter, CAD. VS/Pulse OX: 95, 96 BNP: 2160 Echocardiogram Results: The rhythm appears to be atrial flutter.., EF between 40 - 45 %. Chest X Ray: Correlate for CHF. Right lower lobe infiltrate not excluded. Treatment: Initiated on 40 mg of IV Lasix every 8 hourly yesterday, In your professional opinion, can you please clarify the acuity and type of CHF if known? Systolic Heart Failure: Acute Chronic Acute on Chronic Diastolic Heart Failure: Acute Chronic Acute on Chronic Systolic & Diastolic Heart Failure: Acute Chronic Acute on Chronic Heart Failure Unable to Determine Other, please specify Acute congestive heart failure exacerbation from systolic dysfunction EF 40- 45%, POA MTDD
== END 2019-09-29 13:20 | disposition home or self-care (01) | DRG 286 ==
LOC: EC 12:05 → 3SCARD 14:32
PROVIDERS: ADMIT Hospitalist; ATTEND Hospitalist
PROC: B2111ZZ Fluoroscopy of Multiple Coronary Arteries using Low Osmolar Contrast (ICD-10-PCS; principal; 2019-09-28 09:00)
PROC: 4A023N7 Measurement of Cardiac Sampling and Pressure, Left Heart, Percutaneous Approach (ICD-10-PCS; principal; 2019-09-28 09:00)
DX: I48.92 Unspecified atrial flutter (principal); I50.21 Acute systolic (congestive) heart failure; E03.9 Hypothyroidism, unspecified; I25.10 Atherosclerotic heart disease of native coronary artery without angina pectoris; I95.9 Hypotension, unspecified; M19.91 Primary osteoarthritis, unspecified site; Z79.1 Long term (current) use of non-steroidal anti-inflammatories (NSAID); Z79.82 Long term (current) use of aspirin; Z79.890 Hormone replacement therapy
CPT/HCPCS: 36415; 71046; 80048; 80053; 82550; 83735; 83880; 84439; 84443; 84481; 84484; 85025; 85610; 85730; 93005; 93306; 93458; 96365; 96366; 96368; 96375; 96376; 99291

== ENCOUNTER 2019-10-10 17:41 | Emergency (ER) | payer MEDICARE ==
[2019-10-10 17:49] VITALS: TEMP 97.6
[2019-10-10] MEDS ORDERED: DILTIAZEM 5 MG/ML 5 ML VIAL IVP STA (18:36)
[2019-10-10] MEDS ORDERED: SODIUM CHLORIDE 0.9% 1,000 ML IV STA (18:36)
--- NOTE | 2019-10-10 18:36 | ED ---
Recheck HPI - General Chief Complaint: Chest Pain Stated Complaint: abn EKG Time Seen by Provider: 10/10/19 17:59 Source: patient, RN notes reviewed, old records reviewed Mode of arrival: ambulatory Limitations: no limitations - History of Present Illness Initial Comments: This is a 73-year-old male to the ER for patient has a significantly elevated heart rate in the ER patient's diagnoses inpatient admission fracture fibrillation taking medications as prescribed. Patient denies recent illness otherwise does not feel sick or shortness breath has no recent travel history or sick contacts denying any new pain. No nausea vomiting or diarrhea no recent illness. Patient's taking medication as prescribed. He is on blood thinners and rate control medication Complaint: wound re-check Returns Today for: Called Because of Abnormal Lab/Test Context: called for abnormal lab result Associated Symptoms: none Treatments Prior to Arrival: IV/IO - Related Data Home Medications Medication Instructions Recorded Confirmed Aspirin 81 mg PO DAILY 04/17/17 09/26/19 Levothyroxine Sodium [Synthroid] 100 mcg PO QAM 04/17/17 09/26/19 Previous Rx's Medication Instructions Recorded Atorvastatin [Lipitor] 80 mg PO HS #30 tab 09/29/19 Furosemide [Lasix] 40 mg PO DAILY #30 tab 09/29/19 Metoprolol Tartrate [Lopressor] 25 mg PO BID #60 tab 09/29/19 Rivaroxaban [Xarelto] 20 mg PO W/SUPPER #30 tab 09/29/19 Allergies Allergy/AdvReac Type Severity Reaction Status Date / Time No Known Allergies Allergy Verified 10/10/19 17:45 Review of Systems ROS Statement: Those systems with pertinent positive or pertinent negative responses have been documented in the HPI. ROS Other: All systems not noted in ROS Statement are negative. Past Medical History Past Medical History: Osteoarthritis (OA) Additional Past Medical History / Comment(s): Chronic cough. History of Any Multi-Drug Resistant Organisms: None Reported Past Surgical History: Adenoidectomy, Hernia Repair, Joint Replacement, Orthopedic Surgery, Tonsillectomy Additional Past Surgical History / Comment(s): Left knee replaced. LEFT ARTHROSCOPY, rotator cuff surgery Past Anesthesia/Blood Transfusion Reactions: No Reported Reaction Past Psychological History: No Psychological Hx Reported Smoking Status: Never smoker Past Alcohol Use History: Occasional Past Drug Use History: None Reported - Past Family History Mother Family Medical History: No Reported History General Exam Limitations: no limitations General appearance: alert, in no apparent distress Head exam: Present: atraumatic, normocephalic, normal inspection Eye exam: Present: normal appearance, PERRL, EOMI. Absent: scleral icterus, conjunctival injection, periorbital swelling ENT exam: Present: normal exam, mucous membranes moist Neck exam: Present: normal inspection. Absent: tenderness, meningismus, lymphadenopathy Respiratory exam: Present: normal lung sounds bilaterally. Absent: respiratory distress, wheezes, rales, rhonchi, stridor Cardiovascular Exam: Present: tachycardia, irregular rhythm, normal heart sounds. Absent: systolic murmur, diastolic murmur, rubs, gallop, clicks GI/Abdominal exam: Present: soft, normal bowel sounds. Absent: distended, tenderness, guarding, rebound, rigid Extremities exam: Present: normal inspection, full ROM, normal capillary refill. Absent: tenderness, pedal edema, joint swelling, calf tenderness Back exam: Present: normal inspection Neurological exam: Present: alert, oriented X3, CN II-XII intact Psychiatric exam: Present: normal affect, normal mood Skin exam: Present: warm, dry, intact, normal color. Absent: rash Course Vital Signs 10/10/19 10/10/19 17:45 19:14 Temperature 97.6 F Pulse Rate 150 H 108 H Respiratory 18 19 Rate Blood Pressure 121/90 104/79 O2 Sat by Pulse 98 97 Oximetry - Reevaluation(s) Reevaluation #1: 10/10/19 19:31 Medical records reviewed Reevaluation #2: 10/10/19 19:31 Patient started significantly improved in no acute distress Reevaluation #3: 10/10/19 19:31 Patient feeling better can be discharged to follow-up with primary care Medical Decision Making - Medical Decision Making 73 male anticoagulated. Presents here for help evaluation regards to elevated heart rate or progression with RVR rate is well-controlled currently patient can be discharged home - Lab Data Result diagrams: 10/10/19 18:26 10/10/19 18:26 Lab Results 10/10/19 10/10/19 Range/Units 18:26 18:26 WBC 6.5 (3.8-10.6) k/uL RBC 4.97 (4.30-5.90) m/uL Hgb 15.4 (13.0-17.5) gm/dL Hct 46.2 (39.0-53.0) % MCV 92.9 (80.0-100.0) fL MCH 31.0 (25.0-35.0) pg MCHC 33.4 (31.0-37.0) g/dL RDW 12.9 (11.5-15.5) % Plt Count 215 (150-450) k/uL Neutrophils % 58 % Lymphocytes % 27 % Monocytes % 10 % Eosinophils % 2 % Basophils % 1 % Neutrophils # 3.8 (1.3-7.7) k/uL Lymphocytes # 1.8 (1.0-4.8) k/uL Monocytes # 0.6 (0-1.0) k/uL Eosinophils # 0.1 (0-0.7) k/uL Basophils # 0.0 (0-0.2) k/uL Sodium 137 (137-145) mmol/L Potassium 4.2 (3.5-5.1) mmol/L Chloride 105 (98-107) mmol/L Carbon Dioxide 24 (22-30) mmol/L Anion Gap 8 mmol/L BUN 24 H (9-20) mg/dL Creatinine 0.97 (0.66-1.25) mg/dL Est GFR (CKD-EPI)AfAm 89 (>60 ml/min/1.73 sqM) Est GFR (CKD-EPI)NonAf 77 (>60 ml/min/1.73 sqM) Glucose 89 (74-99) mg/dL Calcium 9.3 (8.4-10.2) mg/dL Phosphorus 4.0 (2.5-4.5) mg/dL Magnesium 1.9 (1.6-2.3) mg/dL Total Bilirubin 0.9 (0.2-1.3) mg/dL AST 40 (17-59) U/L ALT 36 (4-49) U/L Alkaline Phosphatase 90 (38-126) U/L Creatine Kinase 143 (55-170) U/L Total Protein 6.5 (6.3-8.2) g/dL Albumin 4.1 (3.5-5.0) g/dL - EKG Data -: EKG Interpreted by Me (EKG shows a flutter rate of 122, QRS 92, QTC 524) Disposition Clinical Impression: Atrial flutter with rapid ventricular response, Atrial fibrillation Disposition: ADMITTED IP TO THIS HOSP Condition: Fair Is patient prescribed a controlled substance at d/c from ED?: No Referrals: Yvon Hernandez MD [Primary Care Provider] - 1-2 days
[2019-10-10 19:22] LABS: Basophils % (A) 1 %; Eosinophils # (A) 0.1 k/uL (0-0.7); Eosinophils % (A) 2 %; HCT 46.2 % (39.0-53.0); HGB 15.4 gm/dL (13.0-17.5); Lymphocytes # (A) 1.8 k/uL (1.0-4.8); Lymphocytes % (A) 27 %; MCHC 33.4 g/dL (31.0-37.0); MCV 92.9 fL (80.0-100.0); Mean Platelet Volume 8.2; Monocytes # (A) 0.6 k/uL (0-1.0); Monocytes % (A) 10 %; Neutrophils # (A) 3.8 k/uL (1.3-7.7); Neutrophils % (A) 58 %; Platelet Count 215 k/uL (150-450); RBC 4.97 m/uL (4.30-5.90); RDW 12.9 % (11.5-15.5); WBC 6.5 k/uL (3.8-10.6)
[2019-10-10 19:23] LABS: Albumin 4.1 g/dL (3.5-5.0); Calcium 9.3 mg/dL (8.4-10.2); Magnesium 1.9 mg/dL (1.6-2.3); Total Bilirubin 0.9 mg/dL (0.2-1.3); Total Protein 6.5 g/dL (6.3-8.2)
[2019-10-10 19:26] LABS: Potassium 4.2 mmol/L (3.5-5.1)
[2019-10-10 19:34] LABS: Creatine Kinase MB 3.5 ng/mL (0.0-2.4); Troponin I <0.012 ng/mL (0.000-0.034)
[2019-10-10 20:24] VITALS: BP 100/81; PULSE 93; RESP 20
== END 2019-10-10 20:31 | disposition other institution (70) ==
LOC: EC 17:41
DX: I48.91 Unspecified atrial fibrillation (principal); I48.92 Unspecified atrial flutter; M19.90 Unspecified osteoarthritis, unspecified site; Z79.01 Long term (current) use of anticoagulants; Z79.82 Long term (current) use of aspirin; Z79.890 Hormone replacement therapy; Z96.652 Presence of left artificial knee joint
CPT/HCPCS: 36415; 80053; 82550; 82553; 83735; 83880; 84100; 84484; 85025; 93005; 96361; 96374; 99285

== ENCOUNTER 2019-10-11 14:05 | Inpatient (IN) | payer MEDICARE ==
[2019-10-11 15:11] LABS: Glucose,Whole Blood 83 mg/dL (75-99)
[2019-10-11] MEDS ORDERED: ALBUTEROL NEBULIZED 2.5 MG/3 ML INHALATION PRN (16:48)
[2019-10-11] MEDS ORDERED: DILTIAZEM DRIP BOLUS FROM BAG 1 MG SOLN IV ONE (18:00)
[2019-10-11] MEDS: RIVAROXABAN 20 MG TAB PO SCH (18:25)
[2019-10-11] MEDS: DILTIAZEM 125 MG in SODIUM CHLORIDE 0.9% 100 ML IV SCH (18:26)
[2019-10-11] MEDS: ATORVASTATIN 80 MG TAB PO SCH (19:56)
[2019-10-11] MEDS: METOPROLOL TARTRATE 50 MG TAB PO SCH (20:55)
[2019-10-11] MEDS ORDERED: METOPROLOL TARTRATE 25 MG TAB PO SCH (21:00)
--- NOTE | 2019-10-11 21:26 | P.HPIM ---
History of Present Illness H&P Date: 10/11/19 Chief Complaint: Heart racing History of presenting complaint: This is a pleasant 73-year-old patient of Dr. Yvon Hernandez. Follows with Dr. Blum visiting nurse. Was recently the hospital. Continue atrial flutter fibrillation. Cardiac catheterization showed nonobstructive 50% disease in LAD. 2-D echo showed EF of 40-45%. [place] to be arrhythmia induced. Also's primary osteoarthritis. Patient presented to ER yesterday with a rapid ventricular rate. Was placed on IV Cardizem. Patient apparently went back into sinus rhythm. Was discharged. This morning again patient's felt his heart racing. Became short of breath was able to walk only short distances. When her to see Dr. Blum. Heart it was elevated. Dr. Blum called me patient was admitted to direct admission. Placed on Cardizem drip. Review of systems: GEN.: Tired EYES: None HEENT: None NECK: None RESPIRATORY: As above CARDIOVASCULAR: As above GASTROINTESTINAL: None GENITOURINARY: Slow urinary stream MUSCULOSKELETAL: Joint pains LYMPHATICS: None HEMATOLOGICAL: None PSYCHIATRY: None NEUROLOGICAL: None Past medical history to include: Osteoarthritis, CHF EF 40-45%, atrial flutter, nonobstructive coronary artery disease 50% LAD Social history: Does not smoke. Alcohol occasionally. Retired. Lives alone. Family history: Reviewed, noncontributory to presentation Physical examination: VITAL SIGNS: 97.6, 150, 18, 121/90, 98% room air-upon presentation GENERAL: BMI 27.3, laying in bed awake EYES: Pupils equal. Conjunctiva normal. HEENT: External appearance of nose and ears normal, oral cavity grossly normal. NECK: JVD not raised; masses not palpable. HEART: Heart sounds irregular; no edema. LUNGS: Respiratory rate normal; clear to auscultation. ABDOMEN: Soft, nontender, liver spleen not palpable, no masses palpable. PSYCH: Alert and oriented x3; mood and affect normal. MUSCULOSKELETAL: Evidence of OA especially in the hands NEUROLOGICAL: Cranial nerves grossly intact; no facial asymmetry, power and sensation grossly intact. LYMPHATICS: No lymph nodes palpable in the axilla and neck INVESTIGATIONS, reviewed in the clinical context: White count 6.5 hemoglobin 15.4 platelets 21 progression 4.2 creatinine 0.97 Troponin I less 0.012, proBNP 2680 EKG tracing personally reviewed by me-atrial flutter with rate of 120s Recent TSH on September 27 Assessment: -Persistent atrial flutter, uncontrolled with a rapid ventricular rate symptomatic -Nonobstructive coronary artery disease with a 50% LAD lesion -Chronic congestive heart failure from systolic dysfunction EF 40-45% secondary to arrhythmia induced -Primary osteoarthritis -IV Cardizem monitoring -Hypothyroid-patient recently just was .4 Plan: Patient is on IV Cardizem drip. Also being started on Lopressor. 100 mg twice a day. Other home medications resumed. Care was discussed with the patient question were answered. Order chest x-ray Past Medical History Past Medical History: Atrial Fibrillation, Atrial Flutter, Osteoarthritis (OA), Thyroid Disorder Additional Past Medical History / Comment(s): Chronic cough. History of Any Multi-Drug Resistant Organisms: None Reported Past Surgical History: Adenoidectomy, Hernia Repair, Joint Replacement, Orthopedic Surgery, Tonsillectomy Additional Past Surgical History / Comment(s): Left knee replaced. LEFT ARTHROSCOPY, rotator cuff surgery Past Anesthesia/Blood Transfusion Reactions: No Reported Reaction Past Psychological History: No Psychological Hx Reported Smoking Status: Never smoker Past Alcohol Use History: Occasional Past Drug Use History: None Reported - Past Family History Mother Family Medical History: No Reported History Medications and Allergies Home Medications Medication Instructions Recorded Confirmed Type Aspirin 81 mg PO DAILY 04/17/17 10/11/19 History Levothyroxine Sodium [Synthroid] 100 mcg PO DAILY 04/17/17 10/11/19 History Atorvastatin [Lipitor] 80 mg PO HS #30 tab 09/29/19 10/11/19 Rx Furosemide [Lasix] 40 mg PO DAILY #30 tab 09/29/19 10/11/19 Rx Metoprolol Tartrate [Lopressor] 25 mg PO BID #60 tab 09/29/19 10/11/19 Rx Rivaroxaban [Xarelto] 20 mg PO W/SUPPER #30 tab 09/29/19 10/11/19 Rx Albuterol Inhaler [Ventolin Hfa 2 puff INHALATION RT-Q4H PRN 10/11/19 10/11/19 History Inhaler] Allergies Allergy/AdvReac Type Severity Reaction Status Date / Time No Known Allergies Allergy Verified 10/11/19 16:23 Physical Exam Vitals: Vital Signs Temp Pulse Resp BP Pulse Ox 10/11/19 20:00 97.8 F 79 16 92/76 98 10/11/19 18:00 147 H 14 98/83 95 10/11/19 17:00 122 H 12 105/86 94 L 10/11/19 16:00 142 H 11 L 102/85 100 10/11/19 15:45 146 H 10 L 106/84 94 L 10/11/19 15:30 116 H 11 L 106/91 94 L 10/11/19 15:15 97.9 F 146 H 12 94 L 10/11/19 14:44 97.9 F 94 H Intake and Output 10/11/19 10/11/19 10/11/19 06:59 14:59 22:59 Intake Total 135.333 Output Total 0 Balance 135.333 Intake: Intake, IV Titration 15.333 Amount Diltiazem 125 mg In 15.333 Sodium Chloride 0.9% 100 ml @ 10 MG/HR 10 mls/hr IV .[id number] [facility] Rx#: [id number] Oral 120 Output: Urine 0 Other: Weight 86.4 kg 86.4 kg Thrombosis Risk Factor Assmnt - Choose All That Apply Other Risk Factors: Yes Each Risk Factor Represents 2 Points: Age 61-74 years Other congenital or acquired thrombophilia - If yes, enter type in comment: No Thrombosis Risk Factor Assessment Total Risk Factor Score: 2 Thrombosis Risk Factor Assessment Level: Low Risk
--- NOTE | 2019-10-11 22:15 | XR ---
EXAMINATION TYPE: XR chest 1V portable DATE OF EXAM: 10/11/2019 COMPARISON: 09/26/2019 HISTORY: Dysrhythmia TECHNIQUE: Single view FINDINGS: Heart is borderline enlarged. There is no heart failure. There are chest leads. Lungs are c lear of consolidation. IMPRESSION: Borderline cardiomegaly. There is clearing of the pulmonary edema compared to last exam. No acute lung disease.
[2019-10-12 06:06] LABS: Calcium 9.2 mg/dL (8.4-10.2); Potassium 4.1 mmol/L (3.5-5.1)
--- NOTE | 2019-10-12 07:21 | P.CRDCN ---
History of Present Illness Consult date: 10/12/19 Chief complaint: Heart racing History of present illness: This is a very pleasant 73-year-old gentleman who sees Dr. Blum in the office on regular basis with a past medical history significant for coronary artery disease based on recent heart catheterization showing mild to moderate nonobstructive coronary artery disease, cardiomyopathy with an EF between 40-45% based on recent echocardiogram, was sent directly from our office to the [facility] for further cardiac evaluation. Yesterday initially he was seen at his primary care physician office and he was found to be tachycardic and at the same time he was experiencing heart racing symptoms. No dizziness or lightheadedness or syncope. No chest pain or chest discomfort. Subsequently he was sent to or office where he was seen by Dr. Blum and an EKG was performed and showed atrial flutter with heart rate around 140 beats per minutes. Because of that the patient was sent directly to the hospital. Currently he is on Cardizem at 5 mg per hour and the dose of metoprolol was increased as well to 50 mg by mouth twice a day. He is already on oral anticoagulation with Xarelto. His heart rate now is controlled. I am going to wean him from the Cardizem drip. Continue oral anticoagulation. We will obtain an electrophysiology consult to see the patient for further clarification and possible bleeding atrial flutter ablation on him. Past Medical History Past Medical History: Atrial Fibrillation, Atrial Flutter, Osteoarthritis (OA), Thyroid Disorder Additional Past Medical History / Comment(s): Chronic cough. History of Any Multi-Drug Resistant Organisms: None Reported Past Surgical History: Adenoidectomy, Hernia Repair, Joint Replacement, Orthopedic Surgery, Tonsillectomy Additional Past Surgical History / Comment(s): Left knee replaced. LEFT ARTHROSCOPY, rotator cuff surgery Past Anesthesia/Blood Transfusion Reactions: No Reported Reaction Past Psychological History: No Psychological Hx Reported Smoking Status: Never smoker Past Alcohol Use History: Occasional Past Drug Use History: None Reported - Past Family History Mother Family Medical History: No Reported History Medications and Allergies Home Medications Medication Instructions Recorded Confirmed Type Aspirin 81 mg PO DAILY 04/17/17 10/11/19 History Levothyroxine Sodium [Synthroid] 100 mcg PO DAILY 04/17/17 10/11/19 History Atorvastatin [Lipitor] 80 mg PO HS #30 tab 09/29/19 10/11/19 Rx Furosemide [Lasix] 40 mg PO DAILY #30 tab 09/29/19 10/11/19 Rx Metoprolol Tartrate [Lopressor] 25 mg PO BID #60 tab 09/29/19 10/11/19 Rx Rivaroxaban [Xarelto] 20 mg PO W/SUPPER #30 tab 09/29/19 10/11/19 Rx Albuterol Inhaler [Ventolin Hfa 2 puff INHALATION RT-Q4H PRN 10/11/19 10/11/19 History Inhaler] Allergies Allergy/AdvReac Type Severity Reaction Status Date / Time No Known Allergies Allergy Verified 10/11/19 16:23 Physical Exam Vitals: Vital Signs Temp Pulse Resp BP Pulse Ox 10/12/19 04:00 98.6 F 72 16 106/73 95 10/12/19 00:00 97.6 F 75 16 93/64 96 10/11/19 20:00 97.8 F 79 16 92/76 98 10/11/19 18:00 147 H 14 98/83 95 10/11/19 17:00 122 H 12 105/86 94 L 10/11/19 16:00 142 H 11 L 102/85 100 10/11/19 15:45 146 H 10 L 106/84 94 L 10/11/19 15:30 116 H 11 L 106/91 94 L 10/11/19 15:15 97.9 F 146 H 12 94 L 10/11/19 14:44 97.9 F 94 H Intake and Output 10/11/19 10/12/19 10/12/19 22:59 06:59 14:59 Intake Total 135.333 53.917 Output Total 200 400 Balance -64.667 -346.083 Intake: Intake, IV Titration 15.333 53.917 Amount Diltiazem 125 mg In 15.333 53.917 Sodium Chloride 0.9% 100 ml @ 10 MG/HR 10 mls/hr IV .[id number] [facility] Rx#: [id number] Oral 120 Output: Urine 200 400 Other: Weight 86.4 kg - Constitutional General appearance: no acute distress - Respiratory Respiratory: bilateral: CTA - Cardiovascular Rhythm: regular Heart sounds: normal: S1, S2 Results 10/12/19 05:21 Comprehensive Metabolic Panel 10/12/19 Range/Units 05:21 Sodium 137 (137-145) mmol/L Potassium 4.1 (3.5-5.1) mmol/L Chloride 105 (98-107) mmol/L Carbon Dioxide 26 (22-30) mmol/L BUN 28 H (9-20) mg/dL Creatinine 1.01 (0.66-1.25) mg/dL Glucose 95 (74-99) mg/dL Calcium 9.2 (8.4-10.2) mg/dL Current Medications Generic Name Dose Route Start Last Admin Trade Name Freq PRN Reason Stop Dose Admin Albuterol Sulfate 2.5 mg 10/11/19 16:48 Ventolin Nebulized INHALATION RT-Q4H PRN Shortness Of Breath Atorvastatin Calcium 80 mg 10/11/19 21:00 10/11/19 19:56 Lipitor PO 80 mg HS [facility] Administration Furosemide 20 mg 10/12/19 09:00 Lasix PO DAILY [facility] Diltiazem HCl 125 mg/ Sodium 125 mls @ 10 mls/hr 10/11/19 18:00 10/12/19 06 :45 Chloride IV 0 mg/hr .[id number] [facility] 0 mls/hr Infusion 10 MG/HR Levothyroxine Sodium 100 mcg 10/12/19 06:30 Synthroid PO 0630 [facility] Metoprolol Tartrate 50 mg 10/11/19 21:00 10/11/19 20:55 Lopressor PO 50 mg BID [facility] Administration Rivaroxaban 20 mg 10/11/19 17:30 10/11/19 18:25 Xarelto PO 20 mg W/SUPPER [facility] Administration Intake and Output 10/11/19 10/12/19 10/12/19 22:59 06:59 14:59 Intake Total 135.333 53.917 Output Total 200 400 Balance -64.667 -346.083 Intake: Intake, IV Titration 15.333 53.917 Amount Diltiazem 125 mg In 15.333 53.917 Sodium Chloride 0.9% 100 ml @ 10 MG/HR 10 mls/hr IV .[id number] [facility] Rx#: [id number] Oral 120 Output: Urine 200 400 Other: Weight 86.4 kg 10/12/19 05:21 Assessment and Plan Assessment: Assessment #1 atrial flutter was controlled heart rate #2 intermediate coronary artery disease #3 cardiomyopathy was EF between 40-45% Plan #1 right wean the patient from the [facility] drip #2 agree about increasing the dose of metoprolol #3 consult electrophysiology for possible flutter ablation #4 follow-up with the patient
[2019-10-12] MEDS: LEVOTHYROXINE 100 MCG TAB PO SCH (07:39)
[2019-10-12] MEDS: METOPROLOL TARTRATE 50 MG TAB PO SCH ×2 (08:35→19:43)
[2019-10-12] MEDS: FUROSEMIDE 20 MG TAB PO SCH (08:35)
[2019-10-12] MEDS ORDERED: FUROSEMIDE 40 MG TAB PO SCH (09:00)
[2019-10-12] MEDS ORDERED: ASPIRIN 81 MG PO SCH (09:00)
--- NOTE | 2019-10-12 10:48 | P.CRDCN ---
History of Present Illness History of present illness: HISTORY OF PRESENTING ILLNESS This is a pleasant 73-year-old male past medical history significant for atrial flutter, moderate coronary artery disease of the mid-LAD, hypothyroidism, systolic heart failure and dyslipidemia. We have been asked to see in consultation for EP evaluation of symptomatic atrial flutter. He initially presented to the hospital September 26 of this year with symptoms of palpitations and exertional chest pain. At that time he was noted to be in 2:1 conduction atrial flutter with EF of 40-45%. He was quite symptomatic. Cardiac catheterization performed revealed a moderate plaque in the mid-portion of about 50%. Otherwise normal coronary arteries. Anti-coagulation was initiated and plans for cardioversion in 4 weeks time. He was discharged on 09/29/2019. He presented to the office yesterday with symptom of persistent fatigue, chest pressure and palpitations. He was found to be in atrial flutter with 2:1 conduction with heart rates in the 140's. He is seen and examined sitting up in bed in no acute distress. He continues to be in typical atrial flutter with rates fluctuating between 90-120. Blood pressure 106/73. Currently maintained on xarelto 20 mg daily, aspirin 81 mg daily, atorvastatin 40 mg daily, lasix 40 mg daily and lopressor 25 mg BID. Chest xray reveals clearing of pulmonary edema compared to previous exam. REVIEW OF SYSTEMS At the time of my exam: CONSTITUTIONAL: Denies fever or chills. CARDIOVASCULAR: Complains of palpitations and chest pressure. Denies shortness of breath, orthopnea or PND. RESPIRATORY: Denies cough. GASTROINTESTINAL: Denies abdominal pain, diarrhea, constipation, nausea or vomiting. MUSCULOSKELETAL: Denies myalgias. NEUROLOGIC: Denies numbness, tingling or weakness. ENDOCRINE: Complains of fatigue. Denies weight change, polydipsia or polyurina. GENITOURINARY: Denies burning, hematuria or urgency with micturation. HEMATOLOGIC: Denies history of anemia or bleeding. PHYSICAL EXAMINATION Blood pressure 106/73 heart rate 72 afebrile and maintaining oxygen saturation on room air. CONSTITUTIONAL: No apparent distress. HEENT: Head is normocephalic. Pupils are equal, round. Sclerae anicteric. Mucous membranes of the mouth are moist. No JVD. Faint bruit on the left carotid, no bruit on the right. CHEST EXAMINATION: Lungs are clear to auscultation. No chest wall tenderness is noted on palpation or with deep breathing. HEART EXAMINATION: Irregular rate and rhythm. S1, S2 heard. Systolic ejection murmur at the left sternal border, no gallops or rub. ABDOMEN: Soft, nontender. Positive bowel sounds. EXTREMITIES: 2+ peripheral pulses, no lower extremity edema and no calf tenderness. NEUROLOGIC EXAMINATION: Patient is awake, alert and oriented x3. ASSESSMENT Typical atrial flutter with 2:1 conduction on manager intermediate anticoagulation Coronary artery disease, 50% mid-LAD plaque Systolic heart failure secondary to atrial flutter Hypothyroidism Dyslipidemia PLAN Continue xarelto with no interruptions. He will undergo an atrial flutter ablation with Dr. Pabon on Thursday at 0700. I have discussed the risks, benefits and alternative therapies for the above-mentioned procedure and for both sedation/analgesia as well as necessary blood product administration, if indicated, as they pertain to this patient. The patient has indicated understanding and acceptance of the risks and procedures discussed. He is agreeable to proceed with the above stated procedure. NPO after midnight on . Further recommendations to follow based on clinical course. Thank you kindly for this consultation. Nurse Practitioner note has been reviewed, I agree with a documented findings and plan of care. Patient was seen and examined. Past Medical History Past Medical History: Atrial Fibrillation, Atrial Flutter, Osteoarthritis (OA), Thyroid Disorder Additional Past Medical History / Comment(s): Chronic cough. History of Any Multi-Drug Resistant Organisms: None Reported Past Surgical History: Adenoidectomy, Hernia Repair, Joint Replacement, Orthopedic Surgery, Tonsillectomy Additional Past Surgical History / Comment(s): Left knee replaced. LEFT ARTHROSCOPY, rotator cuff surgery Past Anesthesia/Blood Transfusion Reactions: No Reported Reaction Past Psychological History: No Psychological Hx Reported Smoking Status: Never smoker Past Alcohol Use History: Occasional Past Drug Use History: None Reported - Past Family History Mother Family Medical History: No Reported History Medications and Allergies Home Medications Medication Instructions Recorded Confirmed Type Aspirin 81 mg PO DAILY 04/17/17 10/11/19 History Levothyroxine Sodium [Synthroid] 100 mcg PO DAILY 04/17/17 10/11/19 History Atorvastatin [Lipitor] 80 mg PO HS #30 tab 09/29/19 10/11/19 Rx Furosemide [Lasix] 40 mg PO DAILY #30 tab 09/29/19 10/11/19 Rx Metoprolol Tartrate [Lopressor] 25 mg PO BID #60 tab 09/29/19 10/11/19 Rx Rivaroxaban [Xarelto] 20 mg PO W/SUPPER #30 tab 09/29/19 10/11/19 Rx Albuterol Inhaler [Ventolin Hfa 2 puff INHALATION RT-Q4H PRN 10/11/19 10/11/19 History Inhaler] Allergies Allergy/AdvReac Type Severity Reaction Status Date / Time No Known Allergies Allergy Verified 10/11/19 16:23 Physical Exam Vitals: Vital Signs Temp Pulse Resp BP Pulse Ox 10/12/19 04:00 98.6 F 72 16 106/73 95 10/12/19 00:00 97.6 F 75 16 93/64 96 10/11/19 20:00 97.8 F 79 16 92/76 98 10/11/19 18:00 147 H 14 98/83 95 10/11/19 17:00 122 H 12 105/86 94 L 10/11/19 16:00 142 H 11 L 102/85 100 10/11/19 15:45 146 H 10 L 106/84 94 L 10/11/19 15:30 116 H 11 L 106/91 94 L 10/11/19 15:15 97.9 F 146 H 12 94 L 10/11/19 14:44 97.9 F 94 H Intake and Output 10/11/19 10/12/19 10/12/19 22:59 06:59 14:59 Intake Total 135.333 53.917 Output Total 200 400 Balance -64.667 -346.083 Intake: Intake, IV Titration 15.333 53.917 Amount Diltiazem 125 mg In 15.333 53.917 Sodium Chloride 0.9% 100 ml @ 10 MG/HR 10 mls/hr IV .[id number] [facility] Rx#: [id number] Oral 120 Output: Urine 200 400 Other: Weight 86.4 kg Results 10/12/19 05:21 Comprehensive Metabolic Panel 10/12/19 Range/Units 05:21 Sodium 137 (137-145) mmol/L Potassium 4.1 (3.5-5.1) mmol/L Chloride 105 (98-107) mmol/L Carbon Dioxide 26 (22-30) mmol/L BUN 28 H (9-20) mg/dL Creatinine 1.01 (0.66-1.25) mg/dL Glucose 95 (74-99) mg/dL Calcium 9.2 (8.4-10.2) mg/dL Current Medications Generic Name Dose Route Start Last Admin Trade Name Freq PRN Reason Stop Dose Admin Albuterol Sulfate 2.5 mg 10/11/19 16:48 Ventolin Nebulized INHALATION RT-Q4H PRN Shortness Of Breath Atorvastatin Calcium 80 mg 10/11/19 21:00 10/11/19 19:56 Lipitor PO 80 mg HS [facility] Administration Furosemide 20 mg 10/12/19 09:00 10/12/19 08:35 Lasix PO 20 mg DAILY [facility] Administration Diltiazem HCl 125 mg/ Sodium 125 mls @ 10 mls/hr 10/11/19 18:00 10/12/19 06:45 Chloride IV 0 mg/hr .[id number] [facility] 0 mls/hr Infusion 10 MG/HR Sodium Chloride 1,000 mls @ 20 mls/hr 10/12/19 09:45 Saline 0.9% IV .Q24H [facility] Levothyroxine Sodium 100 mcg 10/12/19 06:30 10/12/19 07:39 Synthroid PO 100 mcg 0630 [facility] Administration Metoprolol Tartrate 50 mg 10/11/19 21:00 10/12/19 08:35 Lopressor PO 50 mg BID [facility] Administration Rivaroxaban 20 mg 10/11/19 17:30 10/11/19 18:25 Xarelto PO 20 mg W/SUPPER [facility] Administration Intake and Output 10/11/19 10/12/19 10/12/19 22:59 06:59 14:59 Intake Total 135.333 53.917 Output Total 200 400 Balance -64.667 -346.083 Intake: Intake, IV Titration 15.333 53.917 Amount Diltiazem 125 mg In 15.333 53.917 Sodium Chloride 0.9% 100 ml @ 10 MG/HR 10 mls/hr IV .[id number] [facility] Rx#: [id number] Oral 120 Output: Urine 200 400 Other: Weight 86.4 kg 10/12/19 05:21
[2019-10-12] MEDS ORDERED: BENZOCAINE/MENTHOL LOZENG 1 EACH LOZENGE MUCOUS MEM PRN (11:12)
[2019-10-12] MEDS: DILTIAZEM 125 MG in SODIUM CHLORIDE 0.9% 100 ML IV SCH ×2 (11:14→17:02)
[2019-10-12] MEDS ORDERED: DILTIAZEM DRIP BOLUS FROM BAG 1 MG SOLN IV ONE (15:25)
[2019-10-12] MEDS: SODIUM CHLORIDE 0.9% 1,000 ML IV SCH (16:59)
[2019-10-12] MEDS: RIVAROXABAN 20 MG TAB PO SCH (17:01)
[2019-10-12] MEDS: ATORVASTATIN 80 MG TAB PO SCH (19:43)
--- NOTE | 2019-10-12 23:01 | P.PN ---
Progress Note - Text Progress Note Date: 10/12/19 Chief Complaint: Heart racing History of presenting complaint: This is a pleasant 73-year-old patient of Dr. Yvon Hernandez. 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 Was recently the hospital. Continue atrial flutter fibrillation. Cardiac catheterization showed nonobstructive 50% disease in LAD. 2-D echo showed EF of 40-45%. [place] to be arrhythmia induced. Also's primary osteoarthritis. Patient presented to ER yesterday with a rapid ventricular rate. Was placed on IV Cardizem. Patient apparently went back into sinus rhythm. Was discharged. This morning again patient's felt his heart racing. Became short of breath was able to walk only short distances. When her to see Dr. Blum. Heart it was elevated. Dr. Blum called me patient was admitted to direct admission. Placed on Cardizem drip. today-heart rate better controlled. Symptoms are better. Review of systems: Was done for constitutional, cardiovascular, GI, pulmonary. relevant finding as above Active Medications Albuterol Sulfate (Ventolin Nebulized) 2.5 mg INHALATION RT-Q4H PRN PRN Reason: Shortness Of Breath Last Admin: 10/12/19 11:16 Dose: 2.5 mg Documented by: Atorvastatin Calcium (Lipitor) 80 mg PO HS [facility] Last Admin: 10/12/19 19:43 Dose: 80 mg Documented by: Benzocaine/Menthol (Cepacol Lozenge) 1 each MUCOUS MEM Q4HR PRN PRN Reason: Cough Furosemide (Lasix) 20 mg PO DAILY [facility] Last Admin: 10/12/19 08:35 Dose: 20 mg Documented by: Diltiazem HCl 125 mg/ Sodium (Chloride) 125 mls @ 10 mls/hr IV .[id number] [facility] Last Admin: 10/12/19 17:02 Dose: 10 mg/hr, 10 mls/hr Documented by: Sodium Chloride (Saline 0.9%) 1,000 mls @ 20 mls/hr IV .Q24H [facility] Last Admin: 10/12/19 16:59 Dose: Not Given Documented by: Levothyroxine Sodium (Synthroid) 100 mcg PO 0630 [facility] Last Admin: 10/12/19 07:39 Dose: 100 mcg Documented by: Metoprolol Tartrate (Lopressor) 50 mg PO BID [facility] Last Admin: 10/12/19 19:43 Dose: 50 mg Documented by: Rivaroxaban (Xarelto) 20 mg PO W/SUPPER [facility] Last Admin: 10/12/19 17:01 Dose: 20 mg Documented by: Physical examination: VITAL SIGNS: 98, 95, 17, 107 was 71, 94% room air GENERAL: BMI 27.3, laying in bed awake EYES: Pupils equal. Conjunctiva normal. HEENT: External appearance of nose and ears normal, oral cavity grossly normal. NECK: JVD not raised; masses not palpable. HEART: Heart sounds irregular; no edema. LUNGS: Respiratory rate normal; clear to auscultation. ABDOMEN: Soft, nontender, liver spleen not palpable, no masses palpable. PSYCH: Alert and oriented x3; mood and affect normal. MUSCULOSKELETAL: Evidence of OA especially in the hands INVESTIGATIONS, reviewed in the clinical context: Potassium 4.1 crit 1.01 Previous testing White count 6.5 hemoglobin 15.4 platelets 21 progression 4.2 creatinine 0.97 Troponin I less 0.012, proBNP 2680 EKG tracing personally reviewed by me-atrial flutter with rate of 120s Recent TSH on September 27-1.4 chest x-ray film possible venous prominence Assessment: -Persistent atrial flutter, now heart rate controlled -Nonobstructive coronary artery disease with a 50% LAD lesion -Chronic congestive heart failure from systolic dysfunction EF 40-45% secondary to arrhythmia induced -Primary osteoarthritis -IV Cardizem monitoring -Hypothyroid-patient recently just was 1.4 Plan: continue with Tony mejia, Margueritepressor. Due for ablation on Thursday with Dr. Bari Pabon.
[2019-10-13] MEDS ORDERED: DIAZEPAM 2 MG TAB PO STA ×2 (00:08→19:13)
[2019-10-13] MEDS: DILTIAZEM 125 MG in SODIUM CHLORIDE 0.9% 100 ML IV SCH ×2 (06:19→20:21)
[2019-10-13] MEDS: LEVOTHYROXINE 100 MCG TAB PO SCH (06:19)
[2019-10-13] MEDS: SODIUM CHLORIDE 0.9% 1,000 ML IV SCH (09:22)
[2019-10-13] MEDS: METOPROLOL TARTRATE 50 MG TAB PO SCH ×2 (09:23→20:36)
[2019-10-13] MEDS: FUROSEMIDE 20 MG TAB PO SCH (09:23)
--- NOTE | 2019-10-13 09:24 | P.PN ---
Subjective Progress Note Date: 10/13/19 Principal diagnosis: Atypical atrial flutter This is a very pleasant 73-year-old gentleman who sees Dr. Blum in the office on regular basis with a past medical history significant for coronary artery disease based on recent heart catheterization showing mild to moderate nonobs tructive coronary artery disease, cardiomyopathy with an EF between 40-45% based on recent echocardiogram, was sent directly from our office to the hospital for further cardiac evaluation. Yesterday initially he was seen at his primary care physician office and he was found to be tachycardic and at the same time he was experiencing heart racing symptoms. No dizziness or lightheadedness or syncope. No chest pain or chest discomfort. Subsequently he was sent to or office where he was seen by Dr. Blum and an EKG was performed and showed atrial flutter with heart rate around 140 beats per minutes. Because of that the patient was sent directly to the hospital. Currently he is on Cardizem at 5 mg per hour and the dose of metoprolol was increased as well to 50 mg by mouth twice a day. He is already on oral anticoagulation with Xarelto. His heart rate now is controlled. I am going to wean him from the Cardizem drip. Continue oral anticoagulation. We will obtain an electrophysiology consult to see the patient for further clarification and possible bleeding atrial flutter ablation on him. The patient was seen today, 10/13/2019. He is asymptomatic from a cardiac vascular standpoint overview. He was seen yesterday by Dr. Pabon and the plan is to proceed with atrial flutter ablation tomorrow morning. Meanwhile we'll continue current medical regimen including oral anticoagulation and continue following up with the patient. Objective - Vital Signs Vital signs: Vital Signs Temp 98.6 F 10/13/19 04:00 Pulse 66 10/13/19 08:00 Resp 20 10/13/19 08:00 BP 93/61 10/13/19 08:00 Pulse Ox 96 10/13/19 08:00 Intake & Output 10/12/19 10/13/19 10/13/19 18:59 06:59 18:59 Intake Total 254.5 185 Output Total 450 Balance -195.5 185 Weight 85.6 kg Intake: IV 60 Diltiazem 125 mg In 60 Sodium Chloride 0.9% 100 ml @ 10 MG/HR 10 mls/hr IV .[id number] [facility] Rx#: [id number] Intake, IV Titration 14.5 125 Amount Diltiazem 125 mg In 14.5 125 Sodium Chloride 0.9% 100 ml @ 10 MG/HR 10 mls/hr IV .[id number] [facility] Rx#: [id number] Oral 240 Output: Urine 450 Other: Voiding Method Toilet # Voids 1 2 - Constitutional General appearance: Present: no acute distress - Respiratory Respiratory: bilateral: CTA - Cardiovascular Rhythm: regular Heart sounds: normal: S1, S2 - Labs CBC & Chem 7: 10/12/19 05:21 Assessment and Plan Assessment: Assessment #1 atrial flutter was controlled heart rate #2 intermediate coronary artery disease #3 cardiomyopathy was EF between 40-45% Plan #1 continue the current medical regimen #2 continue oral anticoagulation #3 the patient is scheduled to undergo ablation tomorrow
[2019-10-13] MEDS: RIVAROXABAN 20 MG TAB PO SCH (17:30)
--- NOTE | 2019-10-13 17:40 | P.PN ---
Progress Note - Text Progress Note Date: 10/13/19 Chief Complaint: Heart racing History of presenting complaint: This is a pleasant 73-year-old patient of Dr. Yvon Hernandez. 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 Was recently the hospital. Continue atrial flutter fibrillation. Cardiac catheterization showed nonobstructive 50% disease in LAD. 2-D echo showed EF of 40-45%. [place] to be arrhythmia induced. Also's primary osteoarthritis. Patient presented to ER yesterday with a rapid ventricular rate. Was placed on IV Cardizem. Patient apparently went back into sinus rhythm. Was discharged. This morning again patient's felt his heart racing. Became short of breath was able to walk only short distances. When her to see Dr. Blum. Heart it was elevated. Dr. Blum called me patient was admitted to direct admission. Placed on Cardizem drip. today-heart rate better controlled. Symptoms are better. Review of systems: Was done for constitutional, cardiovascular, GI, pulmonary. relevant finding as above Active Medications Albuterol Sulfate (Ventolin Nebulized) 2.5 mg INHALATION RT-Q4H PRN PRN Reason: Shortness Of Breath Last Admin: 10/12/19 11:16 Dose: 2.5 mg Documented by: Atorvastatin Calcium (Lipitor) 80 mg PO HS [facility] Last Admin: 10/12/19 19:43 Dose: 80 mg Documented by: Benzocaine/Menthol (Cepacol Lozenge) 1 each MUCOUS MEM Q4HR PRN PRN Reason: Cough Furosemide (Lasix) 20 mg PO DAILY [facility] Last Admin: 10/13/19 09:23 Dose: 20 mg Documented by: Diltiazem HCl 125 mg/ Sodium (Chloride) 125 mls @ 10 mls/hr IV .[id number] [facility] Last Admin: 10/13/19 06:19 Dose: 10 mg/hr, 10 mls/hr Documented by: Sodium Chloride (Saline 0.9%) 1,000 mls @ 20 mls/hr IV .Q24H [facility] Last Admin: 10/13/19 09:22 Dose: Not Given Documented by: Levothyroxine Sodium (Synthroid) 100 mcg PO 0630 [facility] Last Admin: 10/13/19 06:19 Dose: 100 mcg Documented by: Metoprolol Tartrate (Lopressor) 50 mg PO BID [facility] Last Admin: 10/13/19 09:23 Dose: 50 mg Documented by: Rivaroxaban (Xarelto) 20 mg PO W/SUPPER [facility] Last Admin: 10/13/19 17:30 Dose: 20 mg Documented by: Physical examination: VITAL SIGNS: 98.6, 68, 16, 99/69, 96% room air GENERAL: BMI 27.3, laying in bed comfortable EYES: Pupils equal. Conjunctiva normal. HEENT: External appearance of nose and ears normal, oral cavity grossly normal. NECK: JVD not raised; masses not palpable. HEART: Heart sounds irregular; no edema. LUNGS: Respiratory rate normal; clear to auscultation. ABDOMEN: Soft, nontender, liver spleen not palpable, no masses palpable. PSYCH: Alert and oriented x3; mood and affect normal. MUSCULOSKELETAL: Evidence of OA especially in the hands INVESTIGATIONS, reviewed in the clinical context: Potassium 4.1 crit 1.01 Previous testing White count 6.5 hemoglobin 15.4 platelets 21 progression 4.2 creatinine 0.97 Troponin I less 0.012, proBNP 2680 EKG tracing personally reviewed by me-atrial flutter with rate of 120s Recent TSH on September 27-1.4 chest x-ray film possible venous prominence Assessment: -Persistent atrial flutter, now heart rate controlled -Nonobstructive coronary artery disease with a 50% LAD lesion -Chronic congestive heart failure from systolic dysfunction EF 40-45% secondary to arrhythmia induced -Primary osteoarthritis -IV Cardizem monitoring -Hypothyroid-TSH recently just was 1.4 Plan: Continue current medication. Pending ablation tomorrow by Dr. Pabon.
[2019-10-13] MEDS: ATORVASTATIN 80 MG TAB PO SCH (20:36)
[2019-10-14] MEDS: LEVOTHYROXINE 100 MCG TAB PO SCH (05:12)
[2019-10-14] MEDS: METOPROLOL TARTRATE 50 MG TAB PO SCH ×3 (05:12→20:44)
[2019-10-14] MEDS ORDERED: NEOSTIGMINE 1 MG/ML 10 ML VIAL ONE (07:14)
[2019-10-14] MEDS ORDERED: PROPOFOL 10 MG/ML 20 ML VIAL IV ONE (07:14)
[2019-10-14] MEDS ORDERED: MIDAZOLAM 2 MG/2 ML VIAL ONE (07:14)
[2019-10-14] MEDS ORDERED: GLYCOPYRROLATE 0.2 MG/ML 2 ML VIAL ONE (07:14)
[2019-10-14] MEDS ORDERED: ROCURONIUM BROMIDE 10 MG/ML 5 ML VIAL IV ONE (07:14)
[2019-10-14] MEDS ORDERED: fentaNYL (PF) 50 MCG/ML 2 ML AMP ONE (07:14)
[2019-10-14] MEDS ORDERED: LIDOCAINE 1% INJ 10MG/ML (20 ML MDV) ONE ×2 (07:14→07:45)
[2019-10-14] MEDS ORDERED: FUROSEMIDE 10 MG/ML 2 ML VIAL ONE (07:14)
[2019-10-14] MEDS ORDERED: PHENYLEPHRINE-0.9% NACL SYG 1 MG/10 ML SYRINGE ONE (07:14)
[2019-10-14] MEDS ORDERED: SUCCINYLCHOLINE CHLORIDE 100 MG/5 ML SYR IV ONE (07:14)
[2019-10-14] MEDS ORDERED: IV FLUID CONTINUATION 400 ML IV ONE (07:26)
[2019-10-14] MEDS ORDERED: HEPARIN SODIUM (1,000 UNIT/ML) 1,000 UNIT in SODIUM CHLORIDE 0.9% 1,000 ML IRRIGATION ONE (07:26)
[2019-10-14] MEDS ORDERED: LIDOCAINE 1% INJ 10MG/ML (20 ML MDV) SQ ONE (07:50)
[2019-10-14] MEDS ORDERED: LACTATED RINGERS 1,000 ML IV ONE (08:01)
[2019-10-14] MEDS ORDERED: ACETAMINOPHEN IV (For NPO) 1,000 MG in EMPTY BAG 1 BAG IVPB ONE (09:46)
[2019-10-14] MEDS ORDERED: ACETAMINOPHEN TAB 325 MG TAB PO PRN (09:46)
[2019-10-14] MEDS ORDERED: HYDROcodone/APAP 5-325MG 1 EACH TAB PO PRN (09:46)
--- NOTE | 2019-10-14 09:49 | P.PCN ---
Preoperative Diagnosis: Procedure performed Diagnostic EP study and greater than frequency ablation for atrial flutter Following sinus rhythm, right heart cath to document extremely elevated RA pressures and right-sided pressures Successful atrial flutter ablation with demonstration of complete bidirectional block with differential pacing Isthmus conduction time of greater than 185-190 ms with split potentials along the line of greater than 150-160 ms Intracardiac echo revealed LV cardio myopathy in sinus rhythm Significantly elevated right heart pressures RA pressure 40/13/27 RV pressures 40/12/27 PA pressures 40/23/30 Pulmonary capillary wedge pressure 20/16/17 Plan Maximize beta blockers Start trish inhibitors Start spironolactone Lifelong anticoagulation for stroke prevention Full dictation follow
[2019-10-14] MEDS: FUROSEMIDE 40 MG TAB PO SCH (12:11)
[2019-10-14] MEDS: SODIUM CHLORIDE 0.9% 1,000 ML IV SCH (12:15)
[2019-10-14] MEDS: LISINOPRIL 10 MG TAB PO SCH (12:16)
[2019-10-14] MEDS: FUROSEMIDE 20 MG TAB PO SCH (14:12)
[2019-10-14] MEDS: DILTIAZEM 125 MG in SODIUM CHLORIDE 0.9% 100 ML IV SCH (14:12)
--- NOTE | 2019-10-14 14:24 | CDI ---
Documentation Clarification Form Date: 10/14/2019 02:03:05 PM From: Guerline Ponce RN, CCDS Admit Date: 10/11/2019 02:32:00 PM Patient Name: Daniel Mandujano Visit Number: [id number] Discharge Date: ATTENTION: The Clinical Documentation Specialists (CDI) and [facility] Coding Staff appreciate your assistance in clarifying documentation. Please respond to the clarification below the line at the bottom and electronically sign. The CDI & [facility] Coding staff will review the response and follow-up if needed. Please note: Queries are made part of the Legal Health Record. If you have any questions, please contact the author of this message via ITS. Dr. Neil Magaña Conflicting documentation has been found in the medical record: 10/12 Dr. Pabon: "Typical atrial Flutter with 2:1 conduction on correction anticoagulation". 10/13 Dr. Magaña: "Atypical Atrial Flutter". 10/12 Dr. Persaud Persistent Atrial Flutter". History/Risk Factors: Atrial Flutter, Coronary artery disease Clinical Indicators: 73-year-old male presenting as direct admit on 10/11 with complaints of heart racing. EK/25: Atrial Flutter rate of 140 (Dr. Montalvo at office) 10/11 CXR: Borderline cardiomegaly. There is clearing of pulmonary edema compared to last exam. Treatment: 10/14 Ablation for atrial flutter Cardizem 5 mg drip (dc) Xarelto 20 mg daily ASA 81 mg po daily, Lipitor 80 PO HS Lopressor 50 mg BID In your opinion, what is the most clinically appropriate diagnosis for this patient? Typical Atrial Flutter Atypical Atrial Flutter Other explanation of clinical findings Unable to determine (no explanation for clinical findings) typical atrial flutter MTDD
--- NOTE | 2019-10-14 14:54 | P.PN ---
Progress Note - Text Progress Note Date: 10/14/19 Chief Complaint: Heart racing History of presenting complaint: This is a pleasant 73-year-old patient of Dr. Yvon Hernandez. 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 Was recently the hospital. Continue atrial flutter fibrillation. Cardiac catheterization showed nonobstructive 50% disease in LAD. 2-D echo showed EF of 40-45%. [place] to be arrhythmia induced. Also's primary osteoarthritis. Patient presented to ER yesterday with a rapid ventricular rate. Was placed on IV Cardizem. Patient apparently went back into sinus rhythm. Was discharged. This morning again patient's felt his heart racing. Became short of breath was able to walk only short distances. When her to see Dr. Blum. Heart it was elevated. Dr. Blum called me patient was admitted to direct admission. Placed on Cardizem drip. Today-Underwent successful ablation of atrial flutter by Dr. Linton. Comfortable laying in bed.. Review of systems: Was done for constitutional, cardiovascular, GI, pulmonary. relevant finding as above Active Medications Acetaminophen (Tylenol Tab) 650 mg PO Q6HR PRN PRN Reason: Mild Pain Hydrocodone Bitart/Acetaminophen ([place] 5-325) 1 each PO Q4HR PRN PRN Reason: Moderate Pain Albuterol Sulfate (Ventolin Nebulized) 2.5 mg INHALATION RT-Q4H PRN PRN Reason: Shortness Of Breath Last Admin: 10/12/19 11:16 Dose: 2.5 mg Documented by: Atorvastatin Calcium (Lipitor) 80 mg PO HS [facility] Last Admin: 10/13/19 20:36 Dose: 80 mg Documented by: Benzocaine/Menthol (Cepacol Lozenge) 1 each MUCOUS MEM Q4HR PRN PRN Reason: Cough Furosemide (Lasix) 40 mg PO DAILY [facility] Last Admin: 10/14/19 12:11 Dose: Not Given Documented by: Sodium Chloride (Saline 0.9%) 1,000 mls @ 20 mls/hr IV .Q24H [facility] Last Admin: 10/14/19 12:15 Dose: 20 mls/hr Documented by: Levothyroxine Sodium (Synthroid) 100 mcg PO 0630 [facility] Last Admin: 10/14/19 05:12 Dose: 100 mcg Documented by: Lisinopril (Zestril) 10 mg PO DAILY [facility] Last Admin: 10/14/19 12:16 Dose: 10 mg Documented by: Metoprolol Tartrate (Lopressor) 50 mg PO BID [facility] Last Admin: 10/14/19 05:12 Dose: 50 mg Documented by: Rivaroxaban (Xarelto) 20 mg PO W/SUPPER [facility] Last Admin: 10/13/19 17:30 Dose: 20 mg Documented by: Sodium Chloride (Saline Flush) 12 ml IV Q12HR [facility] Spironolactone (Aldactone) 25 mg PO DAILY [facility] Physical examination: VITAL SIGNS: 97.5, 101, 17, 103/69, 94% on room air GENERAL: BMI 27.3, laying in bed comfortable EYES: Pupils equal. Conjunctiva normal. HEENT: External appearance of nose and ears normal, oral cavity grossly normal. NECK: JVD not raised; masses not palpable. HEART: Heart sounds irregular; no edema. LUNGS: Respiratory rate normal; clear to auscultation. ABDOMEN: Soft, nontender, liver spleen not palpable, no masses palpable. PSYCH: Alert and oriented x3; mood and affect normal. MUSCULOSKELETAL: Evidence of OA especially in the hands INVESTIGATIONS, reviewed in the clinical context: Potassium 4.1 crit 1.01 Previous testing White count 6.5 hemoglobin 15.4 platelets 21 progression 4.2 creatinine 0.97 Troponin I less 0.012, proBNP 2680 EKG tracing personally reviewed by me-atrial flutter with rate of 120s Recent TSH on September 27-1.4 chest x-ray film possible venous prominence Assessment: -Persistent atrial flutter, status post ablation today -Nonobstructive coronary artery disease with a 50% LAD lesion -Chronic congestive heart failure from systolic dysfunction EF 40-45% secondary to arrhythmia induced -Primary osteoarthritis -IV Cardizem monitoring -Hypothyroid-TSH recently just was 1.4 Plan: Continue current medication treatment plan. Discussed with patient. Hopefully home tomorrow.
--- NOTE | 2019-10-14 15:00 | P.PN ---
Subjective Progress Note Date: 10/14/19 Principal diagnosis: Atypical atrial flutter This is a very pleasant 73-year-old gentleman who sees Dr. Blum in the office on regular basis with a past medical history significant for coronary artery disease based on recent heart catheterization showing mild to moderate nonobs tructive coronary artery disease, cardiomyopathy with an EF between 40-45% based on recent echocardiogram, was sent directly from our office to the hospital for further cardiac evaluation. Yesterday initially he was seen at his primary care physician office and he was found to be tachycardic and at the same time he was experiencing heart racing symptoms. No dizziness or lightheadedness or syncope. No chest pain or chest discomfort. Subsequently he was sent to or office where he was seen by Dr. Blum and an EKG was performed and showed atrial flutter with heart rate around 140 beats per minutes. Because of that the patient was sent directly to the hospital. Currently he is on Cardizem at 5 mg per hour and the dose of metoprolol was increased as well to 50 mg by mouth twice a day. He is already on oral anticoagulation with Xarelto. His heart rate now is controlled. I am going to wean him from the Cardizem drip. Continue oral anticoagulation. We will obtain an electrophysiology consult to see the patient for further clarification and possible bleeding atrial flutter ablation on him. The patient was seen today, October 142019. He underwent A. fib ablation earlier today by Dr. Proctor. When he was examined he was having irregular rhythm. An EKG was performed and showed sinus rhythm with sinus arrhythmia and frequent PACs was possible fusion complexes. The patient denies any chest pain or chest discomfort or shortness of breath. Objective - Vital Signs Vital signs: Vital Signs Temp 98.2 F 10/14/19 13:31 Pulse 101 H 10/14/19 13:31 Resp 17 10/14/19 13:31 BP 103/69 10/14/19 13:31 Pulse Ox 94 L 10/14/19 13:31 Intake & Output 10/13/19 10/14/19 10/14/19 18:59 06:59 18:59 Intake Total 590 1687 Output Total 800 Balance 590 887 Intake: IV 1687 Oral 590 Output: Urine 800 Other: Voiding Method Toilet Indwelling Catheter # Voids 4 2 - Constitutional General appearance: Present: no acute distress - Respiratory Respiratory: bilateral: CTA - Cardiovascular Rhythm: irregularly irregular Heart sounds: normal: S1, S2 - Labs CBC & Chem 7: 10/12/19 05:21 Assessment and Plan Assessment: Assessment #1 atypical atrial flutter and status post ablation #2 intermediate coronary artery disease #3 cardiomyopathy was EF between 40-45% Plan #1 continue the current medical regimen with increasing the dose of metoprolol to 50 mg by mouth 3 times a day #2 continue oral anticoagulation #3 possible discharge home tomorrow
[2019-10-14] MEDS: RIVAROXABAN 20 MG TAB PO SCH (17:38)
[2019-10-14] MEDS: ATORVASTATIN 80 MG TAB PO SCH (20:44)
[2019-10-15] MEDS: LEVOTHYROXINE 100 MCG TAB PO SCH (06:55)
[2019-10-15 08:27] VITALS: RESP 20
[2019-10-15] MEDS: FUROSEMIDE 40 MG TAB PO SCH (08:30)
[2019-10-15] MEDS: METOPROLOL TARTRATE 50 MG TAB PO SCH (08:30)
[2019-10-15] MEDS: LISINOPRIL 10 MG TAB PO SCH (08:30)
[2019-10-15] MEDS ORDERED: SPIRONOLACTONE 25 MG TAB PO SCH (09:00)
[2019-10-15 11:34] VITALS: BP 104/68; PULSE 71; TEMP 98.2
--- NOTE | 2019-10-15 12:41 | P.PN ---
Subjective This is Paige Beasley PA-C dictating a progress note on this patient The patient was interviewed and examined by me as well as by Dr. Pabon Case discussed with Dr. Pabon and he agrees with the plan of care HPI/interval history Patient is a 73-year-old male with history of non obstructive mild to moderate CAD and cardiomyopathy who presented with complaints of palpitations and was found to be in atrial flutter. Yesterday he underwent an atrial flutter ablation by Dr. Pabon and a right heart cath showing extremely elevated right heart pressures. He was started on Bello inhibitors and spironolactone. He has done well post procedure. Patient seen and examined sitting in his chair. States his breathing is "okay". Denies any further palpitations. No chest pain. He has been up walking around, denies any dizziness. No bleeding issues. EXAMINATION Temperature 98.2F, pulse in the 70s, respirations 20, blood pressure 104/68, oxygen saturation 94% on room air Patient seen and examined sitting up in his chair, in no acute distress Lungs are clear to auscultation bilaterally Heart is regular, no audible murmurs Minimal JVD No lower extremity edema Bilateral groin access sites minimally tender to palpation, no palpable h ematomas REVIEW OF LABS, ECG Sodium 137, potassium 4.1, BUN 28, creatinine 1.01 IMPRESSION / ASSESSMENT: atrial flutter status post ablation Intermediate CAD Cardiomyopathy with EF 40-45% severely elevated right heart pressures PLAN: Decrease metoprolol to 50 mg twice a day Maximize cardiomyopathy medications as tolerated Monitor BMP Anticoagulation to continue lifelong He may be discharged home to follow-up with his primary principal architectural firm Objective - Vital Signs Vital signs: Vital Signs Temp 98.2 F 10/15/19 11:32 Pulse 71 10/15/19 11:32 Resp 20 10/15/19 11:32 BP 104/68 10/15/19 11:32 Pulse Ox 94 L 10/15/19 11:32 Intake & Output 10/14/19 10/15/19 10/15/19 18:59 06:59 18:59 Intake Total 2287 180 Output Total 1675 100 Balance 612 -100 180 Weight 87.2 kg Intake: IV 1687 Oral 600 180 Output: Urine 1675 100 Other: Voiding Method Toilet Toilet Toilet Urinal Urinal # Voids 1 - Labs CBC & Chem 7: 10/12/19 05:21
--- NOTE | 2019-10-18 07:21 | CE ---
CARDIAC ELECTROPHYSIOLOGY REPORT This is a 73-year-old male patient who has typical atrial flutter with RVR refractory to drug therapy. He has been appropriately anticoagulated. He is brought in for an atrial flutter ablation. He does have a cardiomyopathy. Patient was brought to the EP lab in a fasting state. Written informed consent was obtained prior to the procedure. Procedure was performed under general anesthesia. The patient was in atrial tachycardia at the start of the study. Tachycardia cycle length 224 milliseconds. Venous sheaths were placed in the right and left femoral veins and via these, diagnostic and mapping ablation catheters were placed. Intracardiac echo catheter was placed. Tachycardia cycle length 224 milliseconds, QRS 93 milliseconds, QT 352 milliseconds. Later when the patient was in sinus rhythm, the RI interval was 159 milliseconds. Sinus cycle length 716 milliseconds. AH interval 70 milliseconds. HV interval 40 milliseconds. Intracardiac echo was performed. No intracardiac masses or thrombi were noted. No left atrial appendage thrombus was noted. No pericardial effusion noted. Severe LV dysfunction noted. RV was enlarged. It appeared that right atrial pressures were high and there was blood backing out from the long sheath indicated of elevated right-sided pressures. Please see right heart cath measurements separately. Images performed at the end of the procedure. A 3-D electroanatomic mapping was performed. The cavotricuspid isthmus was mapped. Intracardiac echo was performed. An RF line of block was made and this resulted in termination of the tachycardia. Following that, the line was interrogated and bidirectional block was proven with differential pacing. Isthmus conduction time greater than 190 milliseconds. Following that, an EP study was performed. AV node Wenckebach block 420 milliseconds, VA Wenckebach block 90 milliseconds, AH interval 70 milliseconds, HV interval 40 milliseconds. Sinus node recovery times of 60 and 500 milliseconds were 1125 milliseconds and 1348 milliseconds. [place] catheter was placed in the right atrium. The RA pressure was 40/13/27 mmHg. This was placed in the pulmonary artery. Pulmonary capillary wedge pressure was 20/16/17 milliseconds. PA pressures of 40/23/30 milliseconds and RV pressures of 40/12/27 milliseconds. The pulmonary capillary wedge pressure mean was 17 mmHg where as the mean RA, RV and PA diastolic pressures were between 27 to 30 mmHg. Intracardiac echo revealed absence of any pericardial effusion. Severe LV dysfunction was noted with a dilated right atrium was noted. No obvious ASD was noted on intracardiac echo. Patient tolerated the procedure well without any acute complications. RESULTS: 1. Successful atrial flutter ablation. 2. Dilated RV. 3. Severe LV dysfunction. 4. Significantly elevated RA and RV pressures with mildly elevated pulmonary capillary wedge pressure as compared to the RA pressures. MMODL / IJN: [id number] /
--- NOTE | 2019-10-18 11:14 | CDI ---
Documentation Clarification Form Date: 10/18/19 From: Sunshine Whelan Phone: If you have a question about this query, please contact Lizabeth Paulson, Enterprise Project Manager at [phone] between 8am and 5pm. Admit Date: 10/11/19 Discharge Date:10/15/19 Patient Name: Daniel Mandujano Visit Number: [id number] ATTENTION: The Clinical Documentation Specialists (CDI) and [facility] Coding Staff appreciate your assistance in clarifying documentation. Please respond to the clarification below the line at the bottom and electronically sign. The CDI & [facility] Coding staff will review the response and follow-up if needed. Please note: Queries are made part of the Legal Health Record. If you have any questions, please contact the author of this message via ITS. Dear Dr. Pabon Atrial Fibrillation is documented in the past medical history of the H&P, your consult note and Dr. Maagña's consult note. History/Risk Factors: Atrial flutter, cardiomyopathy, CAD, CHF Clinical Indicators: Heart racing, short of breath only able to walk short distances EKG/telemetry: Atrial flutter with rate of 120s Treatment: Cardiac ablation for a-flutter In your professional opinion, can you please clarify the type of Atrial Fibrillation, if known? Chronic/Permanent Paroxysmal Persistent Other, please specify Unable to determine We did not document atrial fibrillation, the past medical history section of documentation is pulled from nursing documentation. If we agree we will list this item in our HPI. Thank you. ROXIE
--- NOTE | 2019-10-26 00:07 | P.DS ---
Providers Date of admission: 10/11/19 14:32 Expected date of discharge: 10/15/19 Attending physician: Yomi Persaud Consults: 10/11/19 16:09 Consult Physician Routine Consulting Provider: Neil Magaña Consult Reason/Comments: Atrial Flutter with RVR Do you want consulting provider notified?: Already Contacted 10/12/19 07:37 Consult Physician Routine Consulting Provider: Raad Pabon Consult Reason/Comments: atrial flutter Do you want consulting provider notified?: Yes Primary care physician: Yvon Hernandez [facility] Course: Discharge diagnosis -Persistent atrial flutter, status post ablation on 10/14/2019. Currently in sinus. -Nonobstructive coronary artery disease with a 50% LAD lesion -Severely elevated right heart pressures -Chronic congestive heart failure from systolic dysfunction EF 40-45% secondary to arrhythmia induced -Primary osteoarthritis -Hypothyroid-TSH recently just was 1.4 Hospital course This is a pleasant 73-year-old patient of Dr. Yvon Hernandez. 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 Was recently the hospital. Continue atrial flutter fibrillation. Cardiac catheterization showed nonobstructive 50% disease in LAD. 2-D echo showed EF of 40-45%. [place] to be arrhythmia induced. Also's primary osteoarthritis. Patient presented to ER yesterday with a rapid ventricular rate. Was placed on IV Cardizem. Patient apparently went back into sinus rhythm. Was discharged. This morning again patient's felt his heart racing. Became short of breath was able to walk only short distances. When her to see Dr. Blum. Heart it was elevated. Dr. Blum called me patient was admitted to direct admission. Placed on Cardizem drip. 10/14/2019 successful ablation of atrial flutter by Dr. Linton. Comfortable laying in bed.. 10/15/2019 Patient underwent ablation for atrial flutter by Dr. Linton. Currently being continued on metoprolol dose decreased to 50 mg twice a day. Patient was also found to have extremely elevated right heart pressures. Patient was started on Bello inhibitors and spironolactone. Patient did improve symptomatically for the procedure. Currently sitting in a chair comfortably. Shortness of breath is much improved. Heart rate is well controlled. No complaints of chest pain he had no nausea vomiting. No headache or dizziness or lightheadedness. Patient needs to continued on anticoagulation lifelong. Follow-up with cardiology as an outpatient. Physical examination GENERAL: BMI 27.3, laying in bed comfortable EYES: Pupils equal. Conjunctiva normal. HEENT: External appearance of nose and ears normal, oral cavity grossly normal. NECK: JVD not raised; masses not palpable. HEART: S1 and S2 heard. Regular rhythm; no edema. LUNGS: Respiratory rate normal; clear to auscultation. ABDOMEN: Soft, nontender, liver spleen not palpable, no masses palpable. PSYCH: Alert and oriented x3; mood and affect normal. MUSCULOSKELETAL: Evidence of OA especially in the hands Vital Signs Temp 98.2 F 10/15/19 11:32 Pulse 71 10/15/19 11:32 Resp 20 10/15/19 11:32 BP 104/68 10/15/19 11:32 Pulse Ox 94 L 10/15/19 11:32 Intake & Output 10/14/19 10/15/19 10/15/19 18:59 06:59 18:59 Intake Total 2287 180 Output Total 1675 100 Balance 612 -100 180 Weight 87.2 kg Intake: IV 1687 Oral 600 180 Output: Urine 1675 100 Other: Voiding Method Toilet Toilet Toilet Urinal Urinal # Voids 1 Total time taken greater than 35 minutes including 18 minutes for counseling and coordination of care. Patient Condition at Discharge: Stable Plan - Discharge Summary Discharge Rx Participant: No New Discharge Prescriptions: New Metoprolol Tartrate [Lopressor] 50 mg PO BID #60 tab Spironolactone [Aldactone] 25 mg PO DAILY #30 tab Lisinopril [Zestril] 10 mg PO DAILY #30 tab Continue Aspirin 81 mg PO DAILY Levothyroxine Sodium [Synthroid] 100 mcg PO DAILY Furosemide [Lasix] 40 mg PO DAILY #30 tab Rivaroxaban [Xarelto] 20 mg PO W/SUPPER #30 tab Atorvastatin [Lipitor] 80 mg PO HS #30 tab Albuterol Inhaler [Ventolin Hfa Inhaler] 2 puff INHALATION RT-Q4H PRN PRN Reason: Shortness Of Breath Discontinued Metoprolol Tartrate [Lopressor] 25 mg PO BID #60 tab Discharge Medication List Aspirin 81 mg PO DAILY 04/17/17 [History] Levothyroxine Sodium [Synthroid] 100 mcg PO DAILY 04/17/17 [History] Atorvastatin [Lipitor] 80 mg PO HS #30 tab 09/29/19 [Rx] Furosemide [Lasix] 40 mg PO DAILY #30 tab 09/29/19 [Rx] Rivaroxaban [Xarelto] 20 mg PO W/SUPPER #30 tab 09/29/19 [Rx] Albuterol Inhaler [Ventolin Hfa Inhaler] 2 puff INHALATION RT-Q4H PRN 10/11/19 [History] Lisinopril [Zestril] 10 mg PO DAILY #30 tab 10/15/19 [Rx] Metoprolol Tartrate [Lopressor] 50 mg PO BID #60 tab 10/15/19 [Rx] Spironolactone [Aldactone] 25 mg PO DAILY #30 tab 10/15/19 [Rx] Follow up Appointment(s)/Referral(s): Koki Amador MD [STAFF PHYSICIAN] - 10/21/19 3:30 pm (With Brittany VELAZQUEZ) Yvon Hernandez MD [Primary Care Provider] - 10/20/19 10:15 am Patient Instructions/Handouts: Atrial Flutter (DC), Cardiac Ablation (DC) Discharge Disposition: HOME SELF-CARE
== END 2019-10-15 14:22 | disposition home or self-care (01) | DRG 274 ==
LOC: 2SICU 14:32 → 3SCARD 10-12 21:05
PROVIDERS: ADMIT Hospitalist; ATTEND Hospitalist
PROC: 4A023N6 Measurement of Cardiac Sampling and Pressure, Right Heart, Percutaneous Approach (ICD-10-PCS; principal; 2019-10-14 07:15)
PROC: B24BZZZ Ultrasonography of Heart with Aorta (ICD-10-PCS; principal; 2019-10-14 07:15)
PROC: 4A023FZ Measurement of Cardiac Rhythm, Percutaneous Approach (ICD-10-PCS; principal; 2019-10-14 07:15)
PROC: 02583ZZ Destruction of Conduction Mechanism, Percutaneous Approach (ICD-10-PCS; principal; 2019-10-14 07:15)
PROC: 02K83ZZ Map Conduction Mechanism, Percutaneous Approach (ICD-10-PCS; principal; 2019-10-14 07:15)
PROC: 4A0234Z Measurement of Cardiac Electrical Activity, Percutaneous Approach (ICD-10-PCS; principal; 2019-10-14 07:15)
DX: I48.3 Typical atrial flutter (principal); I50.22 Chronic systolic (congestive) heart failure; I45.89 Other specified conduction disorders; I42.9 Cardiomyopathy, unspecified; E03.9 Hypothyroidism, unspecified; E78.5 Hyperlipidemia, unspecified; I25.10 Atherosclerotic heart disease of native coronary artery without angina pectoris; M19.91 Primary osteoarthritis, unspecified site; R05 Cough; Z79.01 Long term (current) use of anticoagulants; Z79.82 Long term (current) use of aspirin; Z79.890 Hormone replacement therapy; Z79.899 Other long term (current) drug therapy; Z96.652 Presence of left artificial knee joint
CPT/HCPCS: 36415; 71045; 80048; 80053; 82550; 82553; 83735; 83880; 84100; 84484; 85025; 93005; 93451; 93613; 93656; 93662; 94640; 96361; 96374; 99285

== ENCOUNTER → 2020-11-05 | Outpatient (CLI) | payer MEDICARE ==
[2020-11-05 18:24] LABS: HCT 44.1 % (39.6-50.0); HGB 14.5 g/dL (13.0-17.0); MCH 30.9 pg (27.0-32.0); MCHC 32.9 g/dL (32.0-37.0); Mean Platelet Volume 10.1 fL (9.5-12.2); Platelet Count 214 X 10*3/uL (140-440); RBC 4.69 X 10*6/uL (4.40-5.60); RDW 12.7 % (11.5-14.5); WBC 7.21 X 10*3/uL (4.50-10.00)
[2020-11-05 19:18] LABS: African American GFR (CKD) 68.1 (60.0-200.0); Anion Gap 6.5 mmol/L (4.00-12.00); BUN/Creat Ratio 26.67 Ratio (12.00-20.00); Calcium 9.9 mg/dL (8.7-10.3); Carbon Dioxide 27.5 mmol/L (21.6-31.8); Non-African American GFR(CKD) 58.8 (60.0-200.0); Potassium 4.6 mmol/L (3.5-5.5)
== END | disposition home or self-care (01) ==
LOC: LABWHC1 12:24
PROVIDERS: ATTEND Internal Medicine Interventional Cardiology
DX: I10 Essential (primary) hypertension (principal); I25.10 Atherosclerotic heart disease of native coronary artery without angina pectoris
CPT/HCPCS: 36415; 80048; 85027

== ENCOUNTER → 2022-07-31 | Day surgery (SDC) | payer MEDICARE ==
[2022-07-29 12:43] VITALS: BMI 26.5
[~2022-07-31] MED LIST changes: -DEXAMETHASONE SOD PHOSPHATE 10 MG/ML 1 ML VIAL IV ONE; -HYDROmorphone 0.5 MG/0.5 ML SYRINGE IVP PRN; -ONDANSETRON 4 MG/2 ML VIAL IVP ONE; +SODIUM CHLORIDE 0.9% 1,000 ML IV SCH
[2022-07-31 08:54] VITALS: BP 144/79; PULSE 57; RESP 18; TEMP 98
== END ==
LOC: CATHCVL 08:34
PROVIDERS: ATTEND Internal Medicine Interventional Cardiology
DX: I48.0 Paroxysmal atrial fibrillation (principal); Z53.9 Procedure and treatment not carried out, unspecified reason

== ENCOUNTER 2023-01-27 10:22 | Day surgery (SDC) | payer MEDICARE ==
[2023-01-23 11:58] VITALS: BMI 25.8
[~2023-01-27 10:22] MED LIST changes: +LIDOCAINE 1% (10MG/ML) FOR IV START INTRADERMA PRN; -SODIUM CHLORIDE 0.9% 1,000 ML IV SCH
[2023-01-27 11:29] VITALS: RESP 16; TEMP 98.9
[2023-01-27] MEDS ORDERED: PROPOFOL 10 MG/ML 20 ML VIAL IV ONE (12:15)
--- NOTE | 2023-01-27 12:33 | P.PCN ---
Date of Procedure: 01/27/23 Procedure(s) Performed: BRIEF HISTORY: Patient is a 77-year-old pleasant white male scheduled for an elective colonoscopy as a part of screening for colon cancer/positive cologuard. Last colonoscopy was more than 10 years ago. PROCEDURE PERFORMED: Colonoscopy. PREOPERATIVE DIAGNOSIS: Screening for colon cancer/positive cologuard. IV sedation per Anesthesia. PROCEDURE: After informed consent was obtained, the patient, was brought into the endoscopy unit. IV sedation was administered by Anesthesia under continuous monitoring. Digital rectal examination was normal. Initially the Olympus CF-160 flexible video colonoscope was then inserted in the rectum, gradually advanced into the cecum without any difficulty. Careful examination was performed as the scope was gradually being withdrawn. Ileocecal valve and the appendiceal orifice were visualized and appeared normal. Prep was excellent. Mucosa of the cecum, ascending colon, transverse colon, descending colon, sigmoid colon, and rectum appeared normal. Scattered Sigmoid diverticulosis. Retroflexion was performed in the rectum and monitor hemorrhoids were seen. The patient tolerated the procedure well. IMPRESSION: Normal-appearing colon from rectum to cecum no evidence of colorectal neoplasia. Scattered sigmoid diverticulosis Small internal hemorrhoids RECOMMENDATIONS: Findings of this examination were discussed with the patient well as his family.. He was advised to resume Xarelto today.
[2023-01-27 12:55] VITALS: BP 159/86; PULSE 59
== END 2023-01-27 13:23 | disposition home or self-care (01) ==
LOC: ORWHC2ENDO 10:22
PROVIDERS: ATTEND Internal Medicine Gastroenterology
DX: K57.30 Diverticulosis of large intestine without perforation or abscess without bleeding (principal); K64.8 Other hemorrhoids; I25.10 Atherosclerotic heart disease of native coronary artery without angina pectoris; E78.5 Hyperlipidemia, unspecified; I50.9 Heart failure, unspecified; E07.9 Disorder of thyroid, unspecified; Z79.890 Hormone replacement therapy; Z79.899 Other long term (current) drug therapy; Z79.01 Long term (current) use of anticoagulants
CPT/HCPCS: 45378; J2704

== ENCOUNTER → 2023-04-16 | Outpatient (CLI) | payer MEDICARE ==
--- NOTE | 2023-04-16 14:29 | CT ---
EXAMINATION TYPE: CT chest wo con CT DLP: 517 mGycm, Automated exposure control for dose reduction was used. DATE OF EXAM: 04/16/2023 1:49 PM COMPARISON: 10/01/2018 CLINICAL INDICATION:Male, 77 years old with history of J18.9 PNEUMONIA, UNSPECIFIED ORGANISM;, cough, SOB x 3 months TECHNIQUE: Multiple axial images were obtained through the chest. Sagittal and coronal reformats were created for review. Contrast used: (None if empty) Oral contrast used: (None if empty) FINDINGS: LUNGS/ PLEURA: Scattered groundglass capacities are seen throughout the lungs with interstitial thick ening. No evidence for focal consolidation, pneumothorax or pleural effusion. AIRWAY: Patent and unremarkable. HEART: There is mildly enlarged for size. There is mitral valve annular cusp patient's. Coronary pari ry cusp patient's are moderate. Aortic valve leaflet calcifications are mild. MEDIASTINUM: No gross evidence of adenopathy. Small hiatal hernia is present. VASCULATURE: Atherosclerotic calcifications are present throughout the aorta and its branches. MUSCULOSKELETAL: Mild disc degeneration changes are present throughout the thoracolumbar spine. SOFT TISSUES/LYMPH NODES: Unremarkable. LOWER NECK: No significant findings. UPPER ABDOMEN: Right renal cyst is present. IMPRESSION: 1. Scattered predominantly peripheral opacities throughout the lungs which are new from 2019. Findin gs could represent sequela of prior atypical pneumonia such as covid 19 versus acute infectious/infla mmatory process. 2. Mild cardiomegaly with coronary artery calcifications. Aortic valve leaflet calcifications also p resent. . 3. Small hiatal hernia.
== END | disposition home or self-care (01) ==
LOC: RADCTMAIN 09:10
PROVIDERS: ATTEND Family Medicine
DX: J18.9 Pneumonia, unspecified organism (principal); I25.10 Atherosclerotic heart disease of native coronary artery without angina pectoris; I51.7 Cardiomegaly; K44.9 Diaphragmatic hernia without obstruction or gangrene; R91.8 Other nonspecific abnormal finding of lung field; R06.02 Shortness of breath; R05.9 Cough, unspecified
CPT/HCPCS: 71250

== ENCOUNTER → 2023-07-02 | Outpatient (CLI) | payer MEDICARE ==
[2023-07-02 16:11] LABS: Basophils # (A) 0.04 X 10*3/uL (0.00-0.10); Basophils % (A) 0.6 %; Eosinophils # (A) 0.15 X 10*3/uL (0.04-0.35); Eosinophils % (A) 2.2 %; HCT 47.7 % (39.6-50.0); HGB 15.3 g/dL (13.0-17.0); Lymphocytes % (A) 17.2 %; MCH 30.8 pg (27.0-32.0); MCHC 32.1 g/dL (32.0-37.0); MCV 96.2 FL (80.0-97.0); Mean Platelet Volume 9.8 FL (9.5-12.2); Monocytes # (A) 0.79 X 10*3/uL (0.20-1.00); Monocytes % (A) 11.3 %; NRBC Per 100 WBC 0 X 10*3/uL (0.00-0.01); Neutrophils # (A) 4.73 X 10*3/uL (1.80-7.70); Neutrophils % (A) 67.8 %; Platelet Count 192 X 10*3/uL (140-440); RBC 4.96 X 10*6/uL (4.40-5.60); WBC 6.97 X 10*3/uL (4.50-10.00)
[2023-07-02 19:12] LABS: Blood Urea Nitrogen 18.7 mg/dL (9.0-27.0); Calcium 9.7 mg/dL (8.7-10.3); Carbon Dioxide 22.4 mmol/L (21.6-31.8); Chloride 104 mmol/L (96-109); Glucose 108 mg/dL (70-110); Potassium 4.5 mmol/L (3.5-5.5); Sodium 141 mmol/L (135-145)
== END | disposition home or self-care (01) ==
LOC: LABPAT 08:48
PROVIDERS: ATTEND Orthopaedic Surgery
DX: Z01.812 Encounter for preprocedural laboratory examination (principal); M17.11 Unilateral primary osteoarthritis, right knee; Z22.322 Carrier or suspected carrier of Methicillin resistant Staphylococcus aureus
CPT/HCPCS: 36415; 80048; 85025; 87070

== ENCOUNTER 2023-07-27 11:09 | Inpatient (IN) | payer MEDICARE ==
--- NOTE | 2023-07-26 23:55 | HP ---
HISTORY AND PHYSICAL DATE OF SURGERY: 07/27/2023. HISTORY OF PRESENT ILLNESS: Daniel Mandujano is a 77-year-old gentleman seen with symptomatic right knee osteoarthritis. We discussed options for treatment. He elected to proceed with right total knee arthroplasty. Consent regarding the procedure was obtained. Pulmonary clearance was by Dr. Quigley. Cardiac clearance by Dr. Bethea. PAST MEDICAL HISTORY: Hypertension, hyperlipidemia, hypothyroidism. PAST SURGICAL HISTORY: Right shoulder arthroscopy, left total knee arthroplasty. DAILY MEDICATIONS: 1. Atorvastatin. 2. Furosemide. 3. Levothyroxine. 4. Losartan. 5. Metoprolol. 6. Tylenol. ALLERGIES: None. SOCIAL HISTORY: Denies tobacco use. PHYSICAL EVALUATION OF THE RIGHT KNEE: His range of motion is -6/7 to 115 degrees. Tenderness along the medial joint line. Crepitus, medial patellofemoral compartments with range of motion. Pain with patellofemoral compression. Ligaments stable. Hip rotation without pain. Distal neurovascular exam intact. IMAGING STUDIES: Right knee radiographs reveal severe osteoarthritic changes. IMPRESSION: 1. Right knee osteoarthritis. 2. Hypertension. 3. Hyperlipidemia. 4. Cardiovascular disease. PLAN: Right total knee arthroplasty. MMODL / IJN: [id number] /
[~2023-07-27 11:09] MED LIST changes: +ACETAMINOPHEN TAB 500 MG TAB PO PRN; +HYDROmorphone 0.5 MG/0.5 ML SYRINGE IVP PRN; -LACTATED RINGERS 1,000 ML IV SCH; +MELOXICAM 7.5 MG TAB PO PRN; +ONDANSETRON 4 MG/2 ML VIAL IVP ONE; +TRANEXAMIC 1,000 MG/100ML-NACL 1,000 MG in SALINE 1 100ML.BAG IVPB PRN
[2023-07-27 11:52] LABS: Glucose,Whole Blood 92 mg/dL (70-110)
[2023-07-27] MEDS: LACTATED RINGERS 1,000 ML IV SCH (12:08)
[2023-07-27] MEDS ORDERED: METOPROLOL TARTRATE 5 MG/5 ML VIAL IVP ONE ×5 (12:08→12:49)
[2023-07-27] MEDS ORDERED: MIDAZOLAM 2 MG/2 ML VIAL IVP ONE (12:24)
--- NOTE | 2023-07-27 12:52 | P.ANPRN ---
Procedure Note - Anesthesia - Nerve Block Performed Right Adductor Canal Infusion Time Out Performed: Yes Date of Procedure: 07/27/23 Procedure Start Time: Procedure Stop Time: : Location of Patient: PreOp Indication: Acute Post-Operative Pain, Analgesia, Requested by Surgeon Sedation Type: Sedate with meaningful contact maintained Preparation: Sterile Prep Position: Supine Catheter: Indwelling Needle Types: On-Q Needle Gauge: 21 Ultrasound used to visualize needle placement: Yes Ultrasound used to observe medication spread: Yes Injectate: 0.5% Ropivacaine (see comment for volume) (Ropiv 12ml + NS 12ml) Blood Aspirated: No Pain Paresthesia on Injection Noted: No Resistance on Injection: Normal Image Stored and Saved: Yes Events: Uneventful and Well Tolerated
[2023-07-27] MEDS ORDERED: PHENYLEPHRINE 10 MG/ML VIAL ONE (12:54)
[2023-07-27] MEDS ORDERED: SODIUM CHLORIDE 0.9% (PF) 10 ML VIAL ONE (12:54)
[2023-07-27] MEDS ORDERED: ROPIVACAINE 5 MG/ML 30 ML VIAL ONE (12:54)
[2023-07-27] MEDS ORDERED: fentaNYL (PF) 50 MCG/ML 2 ML AMP ONE (12:54)
[2023-07-27] MEDS ORDERED: LABETALOL 5 MG/ML VIAL MDV ONE (12:54)
[2023-07-27] MEDS ORDERED: ESMOLOL 100 MG/10 ML VIAL ONE (12:54)
[2023-07-27] MEDS ORDERED: MIDAZOLAM 2 MG/2 ML VIAL ONE (12:54)
[2023-07-27] MEDS ORDERED: TRANEXAMIC 1,000 MG/100ML-NACL PREMIX BAG ONE (12:54)
--- NOTE | 2023-07-27 12:55 | P.ANPRN ---
Procedure Note - Anesthesia - Nerve Block Performed Right iPack Single Time Out Performed: Yes Date of Procedure: 07/27/23 Procedure Start Time: 12:34 Procedure Stop Time: 12:44 Location of Patient: PreOp Indication: Acute Post-Operative Pain, Analgesia, Requested by Surgeon Sedation Type: Sedate with meaningful contact maintained Preparation: Sterile Prep Position: Left Lateral Catheter: None Needle Types: Pajunk Needle Gauge: 21 Ultrasound used to visualize needle placement: Yes Ultrasound used to observe medication spread: Yes Injectate: 0.5% Ropivacaine (see comment for volume) (ml+NS10ml) Blood Aspirated: No Pain Paresthesia on Injection Noted: No Resistance on Injection: Normal Image Stored and Saved: Yes Events: Uneventful and Well Tolerated
[2023-07-27] MEDS ORDERED: ROPIVACAINE 1,100 MG, SODIUM CHLORIDE 0.9% 500 ML 330 ML, EMPTY PAIN BALL 1 EACH MISCELLANE PRN ×2 (13:15)
[2023-07-27] MEDS ORDERED: ceFAZolin 1,000 MG in SODIUM CHLORIDE 0.9% 1,000 ML IRRIGATION ONE (13:29)
[2023-07-27] MEDS ORDERED: LACTATED RINGERS 1,000 ML IV ONE (13:45)
[2023-07-27] MEDS ORDERED: HYDROcodone/APAP 5-325MG 1 EACH TAB PO PRN (15:08)
[2023-07-27] MEDS ORDERED: ONDANSETRON 4 MG/2 ML VIAL IVP PRN (15:08)
[2023-07-27] MEDS ORDERED: HYDROmorphone 0.5 MG/0.5 ML SYRINGE IVP PRN ×2 (15:08)
[2023-07-27] MEDS ORDERED: NALOXONE 0.4 MG/ML 1 ML VIAL IV PRN (15:08)
--- NOTE | 2023-07-27 15:08 | P.OP ---
Date of Procedure: 07/27/23 Preoperative Diagnosis: Right knee osteoarthritis Postoperative Diagnosis: Right knee osteoarthritis Procedure(s) Performed: Right total knee arthroplasty Implants: 1. Depuy attune size 7 right cruciate retaining cemented femur 2. Depuy attune size 6 fixed-bearing cemented tibial baseplate 3. Depuy attune size 7 fixed bearing cruciate retaining 5 mm polyethylene tibial insert 4. Depuy attune 38 mm all polyethylene cemented patella Anesthesia: regional (Adductor canal catheter, Ipack block), spinal Surgeon: Mac Souza Facilities Specialist #1: Antonio Clark Estimated Blood Loss (ml): 45 Pathology: none sent Condition: stable Disposition: PACU Indications for Procedure: 77-year-old gentleman seen with symptomatic right knee osteoarthritis. After treatment options were discussed, he elected to proceed with right total knee arthroplasty. Operative Findings: See description of procedure Description of Procedure: Patient was taken to the operative suite after having an adductor canal catheter placed by the department of anesthesia. Patient underwent a spinal anesthetic by the department of anesthesia. Patient was given preoperative IV intake antibiotics and TXA. A well-padded tourniquet was placed about the right lower extremity. The lower extremity was then prepped and draped in the normal sterile orthopedic fashion. The extremity was elevated, a tourniquet was insufflated to 300. A standard anterior incision was made sharply through skin. Dissection was taken down through the subcutaneous soft tissues down to the extensor mechanism. A medial arthrotomy was performed, patella was everted and knee was flexed. There was advanced osteoarthritis noted. I introduced my distal intramedullary femoral drill. I then introduced the distal femoral cutting jig. Mt PEREZ secured the cutting jig with 2 pins. I held retractors in position while Mt PEREZ performed the distal femoral resection through the guide area we now removed her distal femoral cutting guide. We now placed our 4-in-1 femoral cutting block and positioned and it was secured with 2 pins by Mt PEREZ while I held the block in position. The distal femoral finishing was now completed. A proximal tibial cutting guide was positioned. I held the guide in the appropriate position with both hands well Mt PEREZ inserted stabilizing pins into the guide. Proximal tibial cut was made. We now placed a trial femoral component into position, along with an appropriate size tibial tray and insert. We now took the knee through range of motion and had full extension good flexion and good overall soft tissue balance noted. The patella was everted and stabilized with 2 towel clips held by Mt PEREZ while I performed a flush with patellar quad tendon utilizing a fresh sawblade. We templated the patella, appropriate drill holes were made. An appropriate trial patella was positioned, knee was taken through full range of motion with the patella tracking very nicely. The trial patella was removed. Drill holes were made through the femoral component. All trial components were removed after marking off the appropriate rotation of the tibia. Retractors were now positioned along the proximal tibia. An appropriate keel punch was made with the appropriate size tibial guide by myself on Mt PEREZ assisted by holding retractors. At this point appropriate size implants were chosen and opened. The joint was irrigated copiously with pulse lavage mechanical irrigation. The wound was irrigated with pulse lavage mechanical irrigation. We mixed antibiotic methylmethacrylate. We placed the knee into flexion. We placed multiple retractors assisted by Mt PEREZ to expose the proximal tibia. Once the methyl methacrylate was ready, the tibial component was cemented into place removing any excess methylmethacrylate form by both myself and Mt PEREZ. The femoral component was cemented into place removing the removing any excess methylmethacrylate performed by both myself and Mt PERZE. We then inserted the appropriate size polyethylene tibial insert. We made sure that it was locked into position. We took the knee into full extension, and then back in a flexion making sure we had removed any excess methylmethacrylate. The patellar component was then cemented down and secured with clamp. Excess methylmethacrylate removed. We kept the knee in full extension, patellar clamp in position until methylmethacrylate had hardened. Once it had hardened the patellar clamp was removed. The knee was taken through full range of motion. The patella tracked nicely. There was good soft tissue balancing. The tourniquet was now released. Additional hemostasis was achieved via electrocautery. A second gram of TXA was given. The wound again was irrigated with pulse lavage mechanical irrigation. The extensor mechanism was repaired with Ethibond suture. We checked the repair with range of motion and it was stable. The subcutaneous soft tissues were repaired with Vicryl in layers. The skin was approximated with pernio/Dermabond. Sterile dressings were applied followed by loose web roll and Bello bandage. The patient was transferred to a bed, and taken to recovery in stable and satisfactory condition. Mt PEREZ assisted with this complex procedure.
--- NOTE | 2023-07-27 16:36 | XR ---
EXAMINATION TYPE: XR knee limited RT DATE OF EXAM: 07/27/2023 COMPARISON: NONE TECHNIQUE: Two views submitted HISTORY: Post op FINDINGS: There is a prosthetic knee in near anatomic alignment. There is soft tissue edema and emphysema. IMPRESSION: 1. Postoperative change. Appears in near-anatomic alignment
[2023-07-27] MEDS: HYDROcodone/APAP 7.5-325MG 1 EACH TAB PO PRN (19:07)
[2023-07-27] MEDS: HYDROmorphone 0.5 MG/0.5 ML SYRINGE IVP PRN ×2 (20:08→23:25)
[2023-07-27] MEDS: SENNOSIDES-DOCUSATE SODIUM 1 EACH TAB PO SCH (20:17)
[2023-07-27] MEDS: SODIUM CHLORIDE 0.9% 1,000 ML IV SCH (20:22)
[2023-07-28] MEDS: HYDROcodone/APAP 7.5-325MG 1 EACH TAB PO PRN ×4 (00:52→19:24)
[2023-07-28] MEDS: HYDROmorphone 1 MG/ML 1 ML SYRINGE IVP PRN ×2 (05:37→21:23)
[2023-07-28] MEDS ORDERED: ENOXAPARIN 30 MG/0.3 ML SYRINGE SQ SCH (09:00)
[2023-07-28] MEDS: METOPROLOL SUCCINATE (ER) 25 MG TAB.ER.24H PO SCH (10:01)
[2023-07-28] MEDS: MULTIVITAMINS, THERA 1 EACH TAB PO SCH (10:01)
[2023-07-28] MEDS: AMIODARONE 200 MG TAB PO SCH (10:02)
--- NOTE | 2023-07-28 10:14 | P.PN ---
Progress Note - Text 07/28/23 615am 77-year-old male status post total knee replacement by Dr. Souza. Patient has an On-Q pump for postop pain control with the solution running at 8 mL an hour with a VAS of 10. Patient has been receiving oral pain medication for breakthrough pain. Dressing clean dry and intact. Plan to continue On-Q pump infusion
[2023-07-28 11:08] LABS: Basophils # (A) 0.02 X 10*3/uL (0.00-0.10); Basophils % (A) 0.2 %; Eosinophils # (A) 0.02 X 10*3/uL (0.04-0.35); Eosinophils % (A) 0.2 %; HCT 40.7 % (39.6-50.0); HGB 13.5 g/dL (13.0-17.0); Lymphocytes # (A) 0.86 X 10*3/uL (0.90-5.00); Lymphocytes % (A) 10.3 %; MCHC 33.2 g/dL (32.0-37.0); MCV 96.4 FL (80.0-97.0); Monocytes # (A) 1.42 X 10*3/uL (0.20-1.00); Monocytes % (A) 16.9 %; NRBC Per 100 WBC 0 X 10*3/uL (0.00-0.01); Neutrophils # (A) 6.04 X 10*3/uL (1.80-7.70); Platelet Count 159 X 10*3/uL (140-440); RBC 4.22 X 10*6/uL (4.40-5.60); RDW 13.5 % (11.5-14.5); WBC 8.39 X 10*3/uL (4.50-10.00)
[2023-07-28] MEDS: LACTATED RINGERS 1,000 ML IV SCH (11:31)
--- NOTE | 2023-07-28 11:48 | P.CRDCN ---
History of Present Illness Consult date: 07/28/23 Consult reason: atrial fibrillation History of present illness: History of present illness: This is a 77-year-old male patient of Dr. Bethea with past medical history of borderline hypertension, hyperlipidemia, moderate CAD, paroxysmal atrial fibrillation, atrial flutter status post atrial flutter ablation, previous cardiomyopathy recovered EF. We have been asked to evaluate the patient for atrial fibrillation. Patient presented to the hospital as an elective surgery for right total knee arthroplasty. This is postop day #1. Patient denies any concerns at this time. He states he had a lot of pain last evening but received [place] and one has gotten a few hours of sleep. Patient is currently on Lovenox for DVT prophylaxis. Blood pressure 119/72, heart rate in the 70s and 80s. CBC is unremarkable with hemoglobin of 13.5. Home cardiac medications: Xarelto 20 mg at bedtime, metoprolol tartrate 12.5 mg every day, losartan 50 mg daily, Lasix 40 mg daily, atorvastatin 40 mg daily, amiodarone 200 mg every 48 hours. Review Of Systems: At the time of my exam: CONSTITUTIONAL: Denies fever or chills. CARDIOVASCULAR: Denies chest pain, Denies shortness of breath, no orthopnea, PND or palpitations. RESPIRATORY: Denies cough. GASTROINTESTINAL: Denies abdominal pain, diarrhea, constipation, nausea or vomiting. MUSCULOSKELETAL: Denies myalgias. Right knee discomfort. NEUROLOGIC: Denies numbness, tingling or weakness. ENDOCRINE: Denies fatigue, weight change, polydipsia or polyurina. GENITOURINARY: Denies burning, hematuria or urgency with micturation. HEMATOLOGIC: Denies history of anemia or bleeding. Physical examination: Gen: This is a 77-year-old male. He is resting in bed and appears to be comfortable and in no acute distress. VS: reviewed HEENT: Head is atraumatic, normocephalic. Pupils equal, round. Sclerae is anicteric. NECK: Supple. No JVD. LUNGS: Clear to auscultation. No wheezes or rhonchi. No intercostal retractions. HEART: Regular rate and rhythm. No murmur. ABDOMEN: Soft No tenderness. EXTREMITIES: No pedal edema. No calf tenderness. NEUROLOGICAL: Patient is awake, alert and oriented x3. 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 Plan: Resume patient on amiodarone 200 mg every 48 hours, atorvastatin Transition metoprolol tartrate to assess and 812.5 mg daily and start today Resume patient on Xarelto at 48 hours post surgery if okay with orthopedics. Hold other blood pressure medications until blood pressure recovers and patient is off pain medications and increasing activity. Further recommendations to follow based upon clinical course Thank you kindly for this consultation. Nurse practitioner note has been reviewed, I agree with documented findings and plan of care. Patient was seen and examined. Past Medical History Past Medical History: Atrial Fibrillation, Atrial Flutter, Hearing Disorder / Deafness, Hyperlipidemia, Hypertension, Osteoarthritis (OA), Pneumonia, Thyroid Disorder Additional Past Medical History / Comment(s): Chronic cough SOB for > 3 months. resolved for most part Bilateral hearing aids. History of Any Multi-Drug Resistant Organisms: None Reported Past Surgical History: Adenoidectomy, Back Surgery, Cardiac Ablation, Hernia Repair, Joint Replacement, Orthopedic Surgery, Tonsillectomy Additional Past Surgical History / Comment(s): Left knee arthroscopy, left knee replacement, right rotator cuff surgery, back surgery X2 Past Anesthesia/Blood Transfusion Reactions: No Reported Reaction Past Psychological History: No Psychological Hx Reported Smoking Status: Never smoker Past Alcohol Use History: Occasional Past Drug Use History: Marijuana Additional Drug Use History / Comment(s): gummie for sleep. pt aware not to use 24 hrs before procedure - Past Family History Mother Family Medical History: Cancer Additional Family Medical History / Comment(s): Thyroid cancer. Father Family Medical History: No Reported History Medications and Allergies Home Medications Medication Instructions Recorded Confirmed Type Levothyroxine Sodium [Synthroid] 100 mcg PO HS 04/17/17 07/27/23 History Amiodarone [Cordarone] 200 mg PO Q48H 07/29/22 07/27/23 History Furosemide [Lasix] 40 mg PO QAM 07/29/22 07/27/23 History Losartan [Cozaar] 50 mg PO DAILY 07/29/22 07/27/23 History Metoprolol Tartrate 12.5 mg PO QAM 07/29/22 07/27/23 History Rivaroxaban [Xarelto] 20 mg PO HS 07/29/22 07/27/23 History Atorvastatin [Lipitor] 40 mg PO DAILY 01/23/23 07/27/23 History Allergies Allergy/AdvReac Type Severity Reaction Status Date / Time No Known Allergies Allergy Verified 07/27/23 11:23 Physical Exam Vitals: Vital Signs Temp Pulse Pulse Pulse Resp BP BP 07/28/23 07:08 98.9 F 78 18 119/72 07/28/23 01:25 98.1 F 84 18 94/55 07/27/23 20:20 72 07/27/23 20:08 98.1 F 72 16 132/78 07/27/23 19:29 98.1 F 72 16 132/78 07/27/23 18:01 57 L 17 104/68 07/27/23 17:31 59 L 18 101/62 07/27/23 17:01 65 18 92/52 07/27/23 16:46 62 14 97/55 07/27/23 16:16 63 16 88/56 07/27/23 16:00 55 L 16 92/58 07/27/23 15:45 56 L 16 101/62 07/27/23 15:15 64 16 94/59 07/27/23 15:02 97 F L 70 16 92/57 07/27/23 12:47 125 H 17 125/90 07/27/23 12:38 117 H 16 120/78 07/27/23 11:20 99.1 F 140 H 14 139/89 Pulse Ox 07/28/23 07:08 90 L 07/28/23 01:25 91 L 07/27/23 20:20 07/27/23 20:08 93 L 07/27/23 19:29 93 L 07/27/23 18:01 97 07/27/23 17:31 98 07/27/23 17:01 98 07/27/23 16:46 98 07/27/23 16:16 98 07/27/23 16:00 98 07/27/23 15:45 98 07/27/23 15:15 98 07/27/23 15:02 94 L 07/27/23 12:47 96 07/27/23 12:38 96 07/27/23 11:20 96 Intake and Output 07/27/23 07/28/23 07/28/23 22:59 06:59 14:59 Intake Total 300 Balance 300 Intake: IV 300 Other: # Voids 2 Weight 85.9 kg Results 07/28/23 06:41 Current Medications Generic Name Dose Route Start Last Admin Trade Name Freq PRN Reason Stop Dose Admin Hydrocodone Bitart/Acetaminophen 1 each 07/27/23 15:08 07/28/23 06:53 Hydrocodone/Apap 7.5-325mg 1 Each Tab PO 08/26/23 15:09 1 each Q6H PRN Administration Pain Scale 6 to 10 Hydrocodone Bitart/Acetaminophen 1 each 07/27/23 15:08 Hydrocodone/Apap 5-325mg 1 Each Tab PO 08/26/23 15:09 Q6HR PRN Pain Scale 1 to 5 Amiodarone HCl 200 mg 07/28/23 09:15 Amiodarone 200 Mg Tab PO Q48H [facility] Atorvastatin Calcium 40 mg 07/29/23 09:00 Atorvastatin 40 Mg Tab PO DAILY KIKO Ropivacaine 1,100 mg/ Sodium 0 mg 07/27/23 13:15 07/27/23 15:15 Chloride 330 ml/ Bandage/ MISCELLANE 08/26/23 13:16 1,100 mg Support Products 1 each Q2H PRN Administration Breakthrough Pain Enoxaparin Sodium 30 mg 07/28/23 09:00 07/28/23 08:43 Enoxaparin 30 Mg/0.3 Ml Syringe SQ 08/26/23 09:01 30 mg Q12HR KIKO Administration Hydromorphone HCl 0.5 mg 07/27/23 09:17 Hydromorphone 0.5 Mg/0.5 Ml Syringe IVP 07/28/23 09:18 Q5M PRN Phase 1 or 2 - Pain Control Hydromorphone HCl 0.25 mg 07/27/23 15:08 Hydromorphone 0.5 Mg/0.5 Ml Syringe IVP 08/26/23 15:09 Q3HR PRN Pain Scale 4 to 6 Hydromorphone HCl 0.5 mg 07/27/23 15:08 07/27/23 23:25 Hydromorphone 0.5 Mg/0.5 Ml Syringe IVP 08/26/23 15:09 0.5 mg Q3HR PRN Administration Pain Scale 7 to 10 Hydromorphone HCl 0.125 mg 07/27/23 15:08 Hydromorphone 0.5 Mg/0.5 Ml Syringe IVP 08/26/23 15:09 Q3HR PRN Pain Scale 1 to 3 Hydromorphone HCl 1 mg 07/28/23 01:36 07/28/23 05:37 Hydromorphone 1 Mg/Ml 1 Ml Syringe IVP 1 mg Q3HR PRN Administration Pain Lactated Ringer's 1,000 mls @ 20 mls/hr 07/27/23 09:17 07/27/23 12:08 Lactated Ringers IV 08/26/23 09:18 1,000 mls .Q24H KIKO Administration Sodium Chloride 1,000 mls @ 50 mls/hr 07/27/23 15:15 07/27/23 20:22 Saline 0.9% IV 08/26/23 15:16 Not Given .Q20H KIKO Lidocaine HCl 0.1 ml 07/27/23 09:17 Lidocaine 1% (10mg/Ml) For Iv Start INTRADERMA 08/26/23 09:18 PER PROTOCOL PRN IV Start Metoprolol Succinate 12.5 mg 07/28/23 09:15 Metoprolol Succinate (Er) 25 Mg Tab.Er.24h PO DAILY KIKO Multivitamins 1 each 07/28/23 12:00 Multivitamins, Thera 1 Each Tab PO 08/27/23 12:01 DAILY@1200 KKIO Naloxone HCl 0.2 mg 07/27/23 15:08 Naloxone 0.4 Mg/Ml 1 Ml Vial IV 08/26/23 15:09 Q2M PRN Opioid Reversal Ondansetron HCl 4 mg 07/27/23 15:08 Ondansetron 4 Mg/2 Ml Vial IVP 08/26/23 15:09 Q8HR PRN Nausea And Vomiting Senna/Docusate Sodium 2 each 07/27/23 21:00 07/27/23 20:17 Sennosides-Docusate Sodium 1 Each Tab PO 08/26/23 21:01 2 each HS KIKO Administration Intake and Output 07/27/23 07/28/23 07/28/23 22:59 06:59 14:59 Intake Total 300 Balance 300 Intake: IV 300 Other: # Voids 2 Weight 85.9 kg
--- NOTE | 2023-07-28 11:54 | P.PN ---
Subjective Progress Note Date: 07/28/23 Principal diagnosis: Right knee osteoarthritis Patient was seen at bedside this morning sitting up in chair with dressing over right knee. Patient says he just finished working with therapy walked around the room. Patient says he did not perform stairs. Patient says he is in a lot of pain currently in the right knee. Patient says he did have left total knee arthroplasty about 10 years ago. Patient says he has urinated several times since surgery yesterday. Patient says he has not had bowel movement yet, however, patient says he has been passing gas. Patient says he does need a walker for home. Patient denies any radiation of pain. Patient says there is some muscle spasms in his upper leg. Patient denies chest pain, fever, shortness breath, nausea, vomiting, change in vision, loss of bowel/bladder control. Objective - Vital Signs Vital signs: Vital Signs Temp 98.9 F 07/28/23 07:08 Pulse 78 07/28/23 07:08 Resp 18 07/28/23 07:08 BP 119/72 07/28/23 07:08 Pulse Ox 90 L 07/28/23 07:08 FiO2 Intake & Output 07/27/23 07/28/23 07/28/23 18:59 06:59 18:59 Intake Total 1651 Output Total 50 Balance 1601 Weight 85.9 kg Intake: IV 1651 Output: Estimated Blood Loss 50 Other: # Voids 2 - Exam Right knee: Incision is clean, dry, and intact. The silver foam dressing is in good condition. There is minimal soft tissue swelling and ecchymosis surrounding the medial and lateral aspects of the incision. Calf is soft, no tenderness with palpation. Plantar flexion, dorsiflexion, EHL, FHL are intact. Sensory exam to light touch throughout the extremity is intact, dorsal pedis pulses 2+. - Labs CBC & Chem 7: 07/28/23 06:41 Labs: Abnormal Lab Results - Last 24 Hours (Table) 07/28/23 Range/Units 06:41 RBC 4.22 L (4.40-5.60) X 10*6/uL Lymphocytes # 0.86 L (0.90-5.00) X 10*3/uL Monocytes # 1.42 H (0.20-1.00) X 10*3/uL Eosinophils # 0.02 L (0.04-0.35) X 10*3/uL Assessment and Plan Assessment: 1. Right knee osteoarthritis - Postop day #1 status post right total knee arthroplasty Plan: 1. Right knee osteoarthritis - right total knee arthroplasty performed yesterday, 07/27/2023. Patient stable at bedside this morning. Patient did work with therapy this morning. Therapy recommending one more night. We recommend 1 more night for additional pain control. Prescription for walker was signed. Plan for discharge home with health services tomorrow. 2. Appreciate medical management 3. Pain management - [place]; Dilaudid 4. GI prophylaxis - senna 5. DVT prophylaxis - Xarelto 6. PT/OT - weightbearing as tolerated with walker 7. Encourage incentive spirometer use 8. Discharge planning - Plan for discharge home with health services tomorrow. Time with Patient: Less than 30
--- NOTE | 2023-07-28 12:07 | P.CONS ---
History of Present Illness - Reason for Consult Consult date: 07/28/23 Medical Management Requesting physician: Mac Souza - History of Present Illness History of Presenting Illness: Patient is a very pleasant 77-year-old male with a past medical history of atrial fibrillation/flutter status post cardiac ablation currently on anticoagulation with Xarelto, hypertension, hyperlipidemia, HFrEF with EF of 40- 45%, and hypothyroidism. He is currently admitted under orthopedic surgery team status post right total knee arthroplasty completed on 07/27/23 by secondary to severe right knee osteoarthritis. We were consulted this morning for medical management throughout patient's hospitalization. Patient seen and fully evaluated at bedside this morning. He is currently postoperative day one and is sitting up in the chair. Patient reports mild postoperative pain but otherwise denies any complaints including headache, light headedness, dizziness, chest pain, palpitations, shortness of breath, or experiencing any numbness/tingling/weakness in his extremities. Review of systems: Pertinent positives and negatives as discussed in HPI, a complete review of systems was performed and all other systems are negative. Physical exam: Vital signs reviewed and stable. General: Nontoxic, no distress and appears stated age. Derm: Skin warm and dry, normal coloration for ethnicity. Head: Atraumatic, normocephalic and symmetric. Eyes: EOMs intact, no lid lag, and anicteric sclera Mouth: no lip lesions, mucus membranes moist Cardiovascular: regular rate and rhythm with normal S1S2, no murmur, positive posterior tibial pulses bilaterally, and cap refill < 2 seconds. Lungs: Respirations even, regular, and unlabored on room air. Lungs CTA bilaterally, no rhonchi, no rales, no wheezing, and no accessory muscle usage. Abdominal: soft, nontender to palpation, no guarding, no appreciable organomegaly Ext: ROM intact. No gross muscle atrophy, no edema, no contractures Neuro: Speech clear, face symmetrical and CN II-XII grossly intact with no noted focal neuro deficits Psych: Alert and oriented to person, place, time, and situation. Appropriate and pleasant affect. Assessment and Plan of Care: Mild postoperative hypoxia SpO2 90-91%, likely due to postoperative atelectasis -Placed order for incentive spirometry, patient to be encouraged on use 10-15 times hourly while awake. Paroxysmal atrial fibrillation, currently maintaining sinus mechanism Hypertension Hyperlipidemia Chronic systolic heart failure History of coronary artery disease -Home medications reviewed. Patient on Lasix 40 mg daily, losartan 50 mg daily, amiodarone 200 mg every 48 hours, atorvastatin 40 mg daily, metoprolol 12.5 mg daily, and Xarelto 20 mg nightly. -Discussed with orthopedic surgery and reordered Xarelto 20 mg nightly at this time. Patient to also continue with amiodarone 200 mg every 24 hours, atorvastatin 40 mg daily, and metoprolol 12.5 mg daily. -Per cardiology recommendations patient to hold losartan at this time. Severe osteoarthritis Status post right total knee arthroplasty - management per primary admitting orthopedic surgery team including pain management, weightbearing, wound/dressing care, and PT/OT. -Currently on DVT prophylaxis with Xarelto 20 mg nightly. Data reviewed: Preoperative hemoglobin 15.3 and upon review of morning postoperative labs, po stoperative hemoglobin is stable at 13.5. Vital signs reviewed, blood pressure 119/72, heart rate 78, respiratory rate 18, temp 98.9F, and SpO2 of 90% on room air. Thank you for allowing us to participate in the care of this pleasant patient. Do not hesitate to contact us with questions. Someone can be reached from the [facility] hospitalist group all hours of the day at [phone] or via [employer]. Patient was seen independently by Nurse Practitioner. This document was prepared using [employer] dictation software. Please allow for errors in car icer while rare they do occur. Past Medical History Past Medical History: Atrial Fibrillation, Atrial Flutter, Hearing Disorder / Deafness, Hyperlipidemia, Hypertension, Osteoarthritis (OA), Pneumonia, Thyroid Disorder Additional Past Medical History / Comment(s): Chronic cough SOB for > 3 months. resolved for most part Bilateral hearing aids. History of Any Multi-Drug Resistant Organisms: None Reported Past Surgical History: Adenoidectomy, Back Surgery, Cardiac Ablation, Hernia Repair, Joint Replacement, Orthopedic Surgery, Tonsillectomy Additional Past Surgical History / Comment(s): Left knee arthroscopy, left knee replacement, right rotator cuff surgery, back surgery X2 Past Anesthesia/Blood Transfusion Reactions: No Reported Reaction Past Psychological History: No Psychological Hx Reported Smoking Status: Never smoker Past Alcohol Use History: Occasional Past Drug Use History: Marijuana Additional Drug Use History / Comment(s): gummie for sleep. pt aware not to use 24 hrs before procedure - Past Family History Mother Family Medical History: Cancer Additional Family Medical History / Comment(s): Thyroid cancer. Father Family Medical History: No Reported History Medications and Allergies Home Medications Medication Instructions Recorded Confirmed Type Levothyroxine Sodium [Synthroid] 100 mcg PO HS 04/17/17 07/27/23 History Amiodarone [Cordarone] 200 mg PO Q48H 07/29/22 07/27/23 History Furosemide [Lasix] 40 mg PO QAM 07/29/22 07/27/23 History Losartan [Cozaar] 50 mg PO DAILY 07/29/22 07/27/23 History Metoprolol Tartrate 12.5 mg PO QAM 07/29/22 07/27/23 History Rivaroxaban [Xarelto] 20 mg PO HS 07/29/22 07/27/23 History Atorvastatin [Lipitor] 40 mg PO DAILY 01/23/23 07/27/23 History Allergies Allergy/AdvReac Type Severity Reaction Status Date / Time No Known Allergies Allergy Verified 07/27/23 11:23 Physical Exam Vitals: Vital Signs Temp Pulse Pulse Pulse Resp BP BP 07/28/23 07:08 98.9 F 78 18 119/72 07/28/23 01:25 98.1 F 84 18 94/55 07/27/23 20:20 72 07/27/23 20:08 98.1 F 72 16 132/78 07/27/23 19:29 98.1 F 72 16 132/78 07/27/23 18:01 57 L 17 104/68 07/27/23 17:31 59 L 18 101/62 07/27/23 17:01 65 18 92/52 07/27/23 16:46 62 14 97/55 07/27/23 16:16 63 16 88/56 07/27/23 16:00 55 L 16 92/58 07/27/23 15:45 56 L 16 101/62 07/27/23 15:15 64 16 94/59 07/27/23 15:02 97 F L 70 16 92/57 07/27/23 12:47 125 H 17 125/90 07/27/23 12:38 117 H 16 120/78 Pulse Ox 07/28/23 07:08 90 L 07/28/23 01:25 91 L 07/27/23 20:20 07/27/23 20:08 93 L 07/27/23 19:29 93 L 07/27/23 18:01 97 07/27/23 17:31 98 07/27/23 17:01 98 07/27/23 16:46 98 07/27/23 16:16 98 07/27/23 16:00 98 07/27/23 15:45 98 07/27/23 15:15 98 07/27/23 15:02 94 L 07/27/23 12:47 96 07/27/23 12:38 96 Intake and Output 07/27/23 07/28/23 07/28/23 22:59 06:59 14:59 Intake Total 300 Balance 300 Intake: IV 300 Other: # Voids 2 Weight 85.9 kg Results CBC & Chem 7: 07/28/23 06:41 Labs: Abnormal Lab Results - Last 24 Hours (Table) 07/28/23 Range/Units 06:41 RBC 4.22 L (4.40-5.60) X 10*6/uL Lymphocytes # 0.86 L (0.90-5.00) X 10*3/uL Monocytes # 1.42 H (0.20-1.00) X 10*3/uL Eosinophils # 0.02 L (0.04-0.35) X 10*3/uL
[2023-07-28] MEDS: SODIUM CHLORIDE 0.9% 1,000 ML IV SCH (12:19)
--- NOTE | 2023-07-28 14:48 | P.CNPUL ---
History of Present Illness Consult date: 07/28/23 Requesting physician: Mac Souza Reason for consult: dyspnea, cough Chief complaint: Right knee pain History of present illness: This is a very pleasant 77-year-old male patient who follows with Dr. Hernandez as his primary care provider. He also follows in our office with Dr. 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 He had provided preop clearance for the patient who was brought in yesterday electively for a right total knee arthroplasty. He is seen today in consultation on the regular medical floor. The patient is awake and alert in no acute distress. Sitting up in a chair at the bedside. Maintaining O2 saturations in the low 90s on 1 L/m per nasal cannula. She's afebrile. Hemodynamically stable. He denies any worsening shortness of breath, cough or congestion. White count 8.3. Hematoma 13.5. Platelets 159. He is continued on Xarelto. Amiodarone is 200 mg every 48 hours. Pain pump is in place. Review of Systems REVIEW OF SYSTEMS: CONSTITUTIONAL: Denies any recent significant weight loss or weight gain. EYES: Denies change in vision. EARS, NOSE, MOUTH, THROAT: Denies headaches, denies sore throat. CARDIOVASCULAR: Denies chest pain, palpitations or syncopal episodes. RESPIRATORY: Denies shortness of breath, cough, congestion or hemoptysis. GASTROINTESTINAL: Denies change in appetite, denies abdominal pain GENITOURINARY: Denies hematuria, denies infections. MUSKULOSKELETAL: Positive for right knee pain and swelling. INTEGUMENTARY: Denies rash, denies eczema. NEUROLOGICAL: Denies recent memory loss, no recent seizure activity. PSYCHIATRIC: Denies anxiety, denies depression. HEMATOLOGIC/LYMPHATIC: Denies anemia, denies enlarged lymph nodes. Past Medical History Past Medical History: Atrial Fibrillation, Atrial Flutter, Hearing Disorder / Deafness, Hyperlipidemia, Hypertension, Osteoarthritis (OA), Pneumonia, Thyroid Disorder Additional Past Medical History / Comment(s): Chronic cough SOB for > 3 months. resolved for most part Bilateral hearing aids. History of Any Multi-Drug Resistant Organisms: None Reported Past Surgical History: Adenoidectomy, Back Surgery, Cardiac Ablation, Hernia Repair, Joint Replacement, Orthopedic Surgery, Tonsillectomy Additional Past Surgical History / Comment(s): Left knee arthroscopy, left knee replacement, right rotator cuff surgery, back surgery X2 Past Anesthesia/Blood Transfusion Reactions: No Reported Reaction Past Psychological History: No Psychological Hx Reported Smoking Status: Never smoker Past Alcohol Use History: Occasional Past Drug Use History: Marijuana Additional Drug Use History / Comment(s): gummie for sleep. pt aware not to use 24 hrs before procedure - Past Family History Mother Family Medical History: Cancer Additional Family Medical History / Comment(s): Thyroid cancer. Father Family Medical History: No Reported History Medications and Allergies Home Medications Medication Instructions Recorded Confirmed Type Levothyroxine Sodium [Synthroid] 100 mcg PO HS 04/17/17 07/27/23 History Amiodarone [Cordarone] 200 mg PO Q48H 07/29/22 07/27/23 History Furosemide [Lasix] 40 mg PO QAM 07/29/22 07/27/23 History Losartan [Cozaar] 50 mg PO DAILY 07/29/22 07/27/23 History Metoprolol Tartrate 12.5 mg PO QAM 07/29/22 07/27/23 History Rivaroxaban [Xarelto] 20 mg PO HS 07/29/22 07/27/23 History Atorvastatin [Lipitor] 40 mg PO DAILY 01/23/23 07/27/23 History Allergies Allergy/AdvReac Type Severity Reaction Status Date / Time No Known Allergies Allergy Verified 07/27/23 11:23 Physical Exam Vitals: Vital Signs Temp Pulse Pulse Resp BP BP Pulse Ox 07/28/23 07:08 98.9 F 78 18 119/72 90 L 07/28/23 01:25 98.1 F 84 18 94/55 91 L 07/27/23 20:20 72 07/27/23 20:08 98.1 F 72 16 132/78 93 L 07/27/23 19:29 98.1 F 72 16 132/78 93 L 07/27/23 18:01 57 L 17 104/68 97 07/27/23 17:31 59 L 18 101/62 98 07/27/23 17:01 65 18 92/52 98 07/27/23 16:46 62 14 97/55 98 07/27/23 16:16 63 16 88/56 98 07/27/23 16:00 55 L 16 92/58 98 07/27/23 15:45 56 L 16 101/62 98 07/27/23 15:15 64 16 94/59 98 07/27/23 15:02 97 F L 70 16 92/57 94 L Intake and Output 07/27/23 07/28/23 07/28/23 22:59 06:59 14:59 Intake Total 300 Output Total 150 Balance 300 -150 Intake: IV 300 Output: Urine 150 Other: # Voids 2 Weight 85.9 kg GENERAL EXAM: Alert, pleasant 77-year-old male patient, on 1 L nasal cannula, fairly comfortable in no apparent distress. HEAD: Normocephalic. EYES: Normal reaction of pupils, equal size. NOSE: Clear with pink turbinates. THROAT: No erythema or exudates. NECK: No masses, no JVD. CHEST: No chest wall deformity. LUNGS: Equal air entry with no crackles, wheeze, rhonchi or dullness. CVS: S1 and S2 normal with no audible murmur, regular rhythm. ABDOMEN: No hepatosplenomegaly, normal bowel sounds, no guarding or rigidity. SPINE: No scoliosis or deformity SKIN: No rashes CENTRAL NERVOUS SYSTEM: No focal deficits, tone is normal in all 4 extremities. EXTREMITIES: Dressing to right knee dry and intact. No clubbing, no cyanosis. Peripheral pulses are intact. Results - Laboratory Findings CBC and BMP: 07/28/23 06:41 Abnormal lab findings: Abnormal Labs 07/28/23 06:41 RBC 4.22 L Lymphocytes # 0.86 L Monocytes # 1.42 H Eosinophils # 0.02 L Assessment and Plan Assessment: Osteoarthritis and pain of the right knee, status post right knee arthroplasty. 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 Number of minutes spent on the visit: 20.
[2023-07-28] MEDS: SENNOSIDES-DOCUSATE SODIUM 1 EACH TAB PO SCH (20:19)
[2023-07-28] MEDS: LEVOTHYROXINE 100 MCG TAB PO SCH (20:19)
[2023-07-28] MEDS: RIVAROXABAN 20 MG TAB PO SCH (20:19)
[2023-07-29] MEDS: HYDROcodone/APAP 7.5-325MG 1 EACH TAB PO PRN ×3 (01:54→16:24)
[2023-07-29] MEDS: HYDROmorphone 0.5 MG/0.5 ML SYRINGE IVP PRN (05:08)
[2023-07-29] MEDS: SODIUM CHLORIDE 0.9% 1,000 ML IV SCH (06:13)
[2023-07-29] MEDS: ATORVASTATIN 40 MG TAB PO SCH (07:54)
[2023-07-29] MEDS: METOPROLOL SUCCINATE (ER) 25 MG TAB.ER.24H PO SCH (07:54)
[2023-07-29] MEDS ORDERED: METOPROLOL TARTRATE 25 MG TAB PO SCH (09:00)
--- NOTE | 2023-07-29 09:54 | P.PN ---
Subjective Progress Note Date: 07/29/23 History of present illness: This is a 77-year-old male patient of Dr. Bethea with past medical history of borderline hypertension, hyperlipidemia, moderate CAD, paroxysmal atrial fibrillation, atrial flutter status post atrial flutter ablation, previous cardiomyopathy recovered EF. We have been asked to evaluate the patient for atrial fibrillation. Patient presented to the hospital as an elective surgery for right total knee arthroplasty. This is postop day #1. Patient denies any concerns at this time. He states he had a lot of pain last evening but received [place] and one has gotten a few hours of sleep. Patient is currently on Lovenox for DVT prophylaxis. Blood pressure 119/72, heart rate in the 70s and 80s. CBC is unremarkable with hemoglobin of 13.5. Home cardiac medications: Xarelto 20 mg at bedtime, metoprolol tartrate 12.5 mg every day, losartan 50 mg daily, Lasix 40 mg daily, atorvastatin 40 mg daily, amiodarone 200 mg every 48 hours. 07/29 Patient is seen today in follow-up on the [facility] floor. He has no new concerns today. He states his knee pain is much better from yesterday. Blood pressure is 106/59, heart rate 60, afebrile, pulse ox 93% on 2 L nasal cannula. Patient has been resumed back on Xarelto. Physical examination: Gen: This is a 77-year-old male. He is resting in bed and appears to be comfortable and in no acute distress. VS: reviewed HEENT: Head is atraumatic, normocephalic. Pupils equal, round. Sclerae is anicteric. NECK: Supple. No JVD. LUNGS: Clear to auscultation. No wheezes or rhonchi. No intercostal retractions. HEART: Regular rate and rhythm. No murmur. ABDOMEN: Soft No tenderness. EXTREMITIES: No pedal edema. No calf tenderness. NEUROLOGICAL: Patient is awake, alert and oriented x3. 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 Plan: Resume patient on amiodarone 200 mg every 48 hours, atorvastatin Transition metoprolol tartrate to metoprolol succinate 12.5 mg daily Patient has been resumed back on Xarelto Losartan may be reintroduced as blood pressure recovers No further recommendations from cardiology. Cardiology will sign off this case and follow on an as-needed basis. Please reconsult for any new concerns. Patient may follow-up in the office in one to 2 weeks. Nurse practitioner note has been reviewed, I agree with documented findings and plan of care. Patient was seen and examined. Objective - Vital Signs Vital signs: Vital Signs Temp 97.8 F 07/29/23 07:27 Pulse 60 07/29/23 07:27 Resp 19 07/29/23 07:27 BP 106/59 07/29/23 07:27 Pulse Ox 93 L 07/29/23 07:27 FiO2 Intake & Output 07/28/23 07/29/23 07/29/23 18:59 06:59 18:59 Intake Total 500 Output Total 350 600 Balance -350 -100 Intake: Oral 500 Output: Urine 350 600 - Labs CBC & Chem 7: 07/28/23 06:41 Labs: Abnormal Lab Results - Last 24 Hours (Table) 07/28/23 Range/Units 06:41 RBC 4.22 L (4.40-5.60) X 10*6/uL Lymphocytes # 0.86 L (0.90-5.00) X 10*3/uL Monocytes # 1.42 H (0.20-1.00) X 10*3/uL Eosinophils # 0.02 L (0.04-0.35) X 10*3/uL
[2023-07-29] MEDS: MULTIVITAMINS, THERA 1 EACH TAB PO SCH (10:10)
--- NOTE | 2023-07-29 11:10 | P.PN ---
Subjective Progress Note Date: 07/29/23 Principal diagnosis: Right knee osteoarthritis Patient was seen at bedside this morning sitting up in chair with dressing over the knee. Patient says he just finished working with physical therapy and was unable to do stairs. Patient says when he worked therapy his pain in the knee was 10/10. Patient is still hoping to go home upon discharge. Patient currently with 2 L O2 via nasal cannula. Patient denies ever having any issues with low oxygen or shortness of breath. Patient states he is not short of breath when he was up with therapy. Cardiology and pulmonology following patient as well as medicine. Patient denies any other issues at this time. Objective - Vital Signs Vital signs: Vital Signs Temp 97.8 F 07/29/23 07:27 Pulse 60 07/29/23 07:27 Resp 19 07/29/23 07:27 BP 106/59 07/29/23 07:27 Pulse Ox 86 L 07/29/23 09:55 FiO2 Intake & Output 07/28/23 07/29/23 07/29/23 18:59 06:59 18:59 Intake Total 500 Output Total 350 600 Balance -350 -100 Intake: Oral 500 Output: Urine 350 600 - Exam Right knee: Incision is clean, dry, and intact. The silver foam dressing is in good condition. There is minimal soft tissue swelling and ecchymosis surrounding the medial and lateral aspects of the incision. Calf is soft, no tenderness with palpation. Plantar flexion, dorsiflexion, EHL, FHL are intact. Sensory exam to light touch throughout the extremity is intact, dorsal pedis pulses 2+. - Labs CBC & Chem 7: 07/28/23 06:41 Labs: Abnormal Lab Results - Last 24 Hours (Table) 07/28/23 Range/Units 06:41 RBC 4.22 L (4.40-5.60) X 10*6/uL Lymphocytes # 0.86 L (0.90-5.00) X 10*3/uL Monocytes # 1.42 H (0.20-1.00) X 10*3/uL Eosinophils # 0.02 L (0.04-0.35) X 10*3/uL Assessment and Plan Assessment: 1. Right knee osteoarthritis - Postop day #2 status post right total knee arthroplasty Plan: 1. Right knee osteoarthritis - right total knee arthroplasty performed 07/27/2023. Patient at bedside this morning with 2L O2. Patient did work with therapy this morning, unable to do stairs. Therapy recommending one more night. We recommend 1 more night for additional pain control. Tramadol added for breakthrough pain. Prescription for walker was signed. Plan for discharge home with health services tomorrow. 2. Appreciate medical, cardiology, pulmonology management 3. Pain management - [place]; Tramadol; Dilaudid 4. GI prophylaxis - senna 5. DVT prophylaxis - Xarelto 6. PT/OT - weightbearing as tolerated with walker 7. Encourage incentive spirometer use 8. Discharge planning - Plan for discharge home with health services tomorrow. Time with Patient: Less than 30
[2023-07-29 11:16] LABS: ALT 15 U/L (10-49); AST 16 U/L (14-35); Albumin 3.4 g/dL (3.8-4.9); Albumin/Globulin Ratio 1.48 Ratio (1.60-3.17); Alkaline Phosphatase 63 U/L (41-126); BUN/Creat Ratio 16.62 Ratio (12.00-20.00); Blood Urea Nitrogen 13.3 mg/dL (9.0-27.0); Calcium 8.6 mg/dL (8.7-10.3); Carbon Dioxide 23.6 mmol/L (21.6-31.8); Chloride 102 mmol/L (96-109); Globulin 2.3 g/dL (1.6-3.3); Glucose 99 mg/dL (70-110); Magnesium 1.9 mg/dL (1.5-2.4); Sodium 135 mmol/L (135-145); Total Bilirubin 1.1 mg/dL (0.3-1.2); Total Protein 5.7 g/dL (6.2-8.2)
--- NOTE | 2023-07-29 11:19 | P.PN ---
Subjective Progress Note Date: 07/29/23 Patient is a very pleasant 77-year-old male with a past medical history of atrial fibrillation/flutter status post cardiac ablation currently on anticoagulation with Xarelto, hypertension, hyperlipidemia, HFrEF with EF of 40- 45%, and hypothyroidism. He is currently admitted under orthopedic surgery team status post right total knee arthroplasty completed on 07/27/23 by secondary to severe right knee osteoarthritis. Patient was mildly hypoxic post surgery thought to be related to atelectasis. Encouraged IS. Pulmonology following. Cardiology also following for history of A-Fib. 07/29 Patient was seen and examined. Worked with PT this morning. Reports 10/10 severity knee pain. Urinating freely. No bowel movement but passing gas. General: non toxic, no distress, appears at stated age Derm: warm, dry Head: atraumatic, normocephalic, symmetric Eyes: EOMI, no lid lag, anicteric sclera Mouth: no lip lesion, mucus membranes moist Cardiovascular: S1S2 reg, no murmur Lungs: CTA bilateral, no rhonchi, no rales , no accessory muscle use Ext: no gross muscle atrophy, no edema, no contractures Neuro: no focal neuro deficits Psych: Alert, oriented, appropriate affect Based on my assessment of this patient, this patient meets a moderate complexity level of care. Patient has a chronic diagnosis of A-Fib, HTN, HLD, HFrEF, hypothyroidism, COOP. Mild postoperative hypoxia: Likely due to postoperative atelectasis. Continue IS. Pulmonology on board. Paroxysmal atrial fibrillation: Currently maintaining sinus mechanism. Amiodarone 200 mg PO Q48H. Metoprolol 12.5 mg PO QD. Xarelto 20 mg PO QHS for AC. Cardiology following. Hypertension Hyperlipidemia Chronic systolic heart failure: Lasix 40 mg PO QD. Metoprolol as above. Cardiology recommends holding Losartan. History of coronary artery disease: Atorvastatin 40 mg PO daily. Xarelto and Metoprolol as above. Severe osteoarthritis Status post right total knee arthroplasty: Management per primary admitting orthopedic surgery team including pain management, weightbearing, wound/dressing care, and PT/OT. CODE STATUS: FULL CODE. DVT Prophylaxis: Xarelto GI Prophylaxis: Designated medical POA if patient is not able to make medical decisions for themselves: I have reviewed the following vocational rehab consultant notes: Ortho, Cardio, Pulm note. I have reviewed the results of the following tests: I have ordered the following tests: I have discussed the care of this patient with the following independent historian: I have independently interpreted the following test below: I have discussed the management of this patient with the following physician: Objective - Vital Signs Vital signs: Vital Signs Temp 97.8 F 07/29/23 07:27 Pulse 60 07/29/23 07:27 Resp 19 07/29/23 07:27 BP 106/59 07/29/23 07:27 Pulse Ox 86 L 07/29/23 09:55 FiO2 Intake & Output 07/28/23 07/29/23 07/29/23 18:59 06:59 18:59 Intake Total 500 Output Total 350 600 Balance -350 -100 Intake: Oral 500 Output: Urine 350 600 - Labs CBC & Chem 7: 07/28/23 06:41 07/29/23 06:19 Labs: Abnormal Lab Results - Last 24 Hours (Table) 07/29/23 Range/Units 06:19 Calcium 8.6 L (8.7-10.3) mg/dL Total Protein 5.7 L (6.2-8.2) g/dL Albumin 3.4 L (3.8-4.9) g/dL Albumin/Globulin Ratio 1.48 L (1.60-3.17) Ratio
[2023-07-29 11:30] LABS: HCT 39.9 % (39.6-50.0); HGB 13.6 g/dL (13.0-17.0); MCHC 34.1 g/dL (32.0-37.0); MCV 93.9 FL (80.0-97.0); Mean Platelet Volume 9.8 FL (9.5-12.2); NRBC Per 100 WBC 0 X 10*3/uL (0.00-0.01); Platelet Count 157 X 10*3/uL (140-440); RBC 4.25 X 10*6/uL (4.40-5.60); RDW 13.7 % (11.5-14.5); WBC 10.06 X 10*3/uL (4.50-10.00)
--- NOTE | 2023-07-29 13:22 | P.PN ---
Subjective Progress Note Date: 07/29/23 This is a very pleasant 77-year-old male patient who follows with Dr. Hernandez as his primary care provider. He also follows in our office with Dr. 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 He had provided preop clearance for the patient who was brought in yesterday electively for a right total knee arthroplasty. He is seen today in consultation on the regular medical floor. The patient is awake and alert in no acute distress. Sitting up in a chair at the bedside. Maintaining O2 saturations in the low 90s on 1 L/m per nasal cannula. He's afebrile. Hemodynamically stable. He denies any worsening shortness of breath, cough or congestion. White count 8.3. H ematoma 13.5. Platelets 159. He is continued on Xarelto. Amiodarone is 200 mg every 48 hours. Pain pump is in place. The patient is seen today 07/29/2023 in follow-up on the regular medical floor. He is currently sitting up in chair. Awake and alert in no acute distress. He did desaturate into the 80s on room air once tested. He is currently in the 90s on 2 L/m per nasal cannula. Afebrile. Hemodynamically stable. He is encouraged regarding increased use of the incentive spirometer and cough and deep breathing exercises. Count 10.0. Hemoglobin 13.6. Sodium 135. Potassium 4.0. Bicarb 24. BUN 13. Creatinine 0.8. He is still requiring Dilaudid alternating with [place] regarding this pain. He is anticoagulated with Xarelto. Objective - Vital Signs Vital signs: Vital Signs Temp 97.8 F 07/29/23 07:27 Pulse 60 07/29/23 07:27 Resp 19 07/29/23 07:27 BP 106/59 07/29/23 07:27 Pulse Ox 86 L 07/29/23 09:55 FiO2 Intake & Output 07/28/23 07/29/23 07/29/23 18:59 06:59 18:59 Intake Total 500 Output Total 350 600 Balance -350 -100 Intake: Oral 500 Output: Urine 350 600 - Exam GENERAL EXAM: Alert, pleasant 77-year-old male, on 2 L nasal cannula, fairly comfortable in no apparent distress. HEAD: Normocephalic. EYES: Normal reaction of pupils, equal size. NOSE: Clear with pink turbinates. THROAT: No erythema or exudates. NECK: No masses, no JVD. CHEST: No chest wall deformity. LUNGS: Equal air entry with no crackles, wheeze, rhonchi or dullness. CVS: S1 and S2 normal with no audible murmur, regular rhythm. ABDOMEN: No hepatosplenomegaly, normal bowel sounds, no guarding or rigidity. SPINE: No scoliosis or deformity SKIN: No rashes CENTRAL NERVOUS SYSTEM: No focal deficits, tone is normal in all 4 extremities. EXTREMITIES: Dressing to right knee dry and intact. No clubbing, no cyanosis. Peripheral pulses are intact. - Labs CBC & Chem 7: 07/29/23 06:19 07/29/23 06:19 Labs: Abnormal Lab Results - Last 24 Hours (Table) 07/29/23 07/29/23 Range/Units 06:19 06:19 WBC 10.06 H (4.50-10.00) X 10*3/uL RBC 4.25 L (4.40-5.60) X 10*6/uL Calcium 8.6 L (8.7-10.3) mg/dL Total Protein 5.7 L (6.2-8.2) g/dL Albumin 3.4 L (3.8-4.9) g/dL Albumin/Globulin Ratio 1.48 L (1.60-3.17) Ratio Assessment and Plan Assessment: Osteoarthritis and pain of the right knee, status post right knee arthroplasty. 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 Number of minutes spent on the visit: 10.
[2023-07-29] MEDS: traMADol 50 MG TAB PO SCH ×2 (15:18→21:00)
[2023-07-29] MEDS: SENNOSIDES-DOCUSATE SODIUM 1 EACH TAB PO SCH (21:00)
[2023-07-29] MEDS: RIVAROXABAN 20 MG TAB PO SCH (21:00)
[2023-07-29] MEDS: LEVOTHYROXINE 100 MCG TAB PO SCH (21:00)
[2023-07-30] MEDS: HYDROmorphone 1 MG/ML 1 ML SYRINGE IVP PRN (00:02)
[2023-07-30] MEDS: HYDROcodone/APAP 7.5-325MG 1 EACH TAB PO PRN ×2 (01:53→11:04)
[2023-07-30] MEDS: SODIUM CHLORIDE 0.9% 1,000 ML IV SCH (03:37)
[2023-07-30 07:55] VITALS: BP 127/75; PULSE 72; RESP 16; TEMP 97.5
[2023-07-30] MEDS: traMADol 50 MG TAB PO SCH (08:47)
[2023-07-30 09:24] LABS: Basophils # (A) 0.03 X 10*3/uL (0.00-0.10); Basophils % (A) 0.3 %; Eosinophils # (A) 0.15 X 10*3/uL (0.04-0.35); Eosinophils % (A) 1.6 %; HCT 38.1 % (39.6-50.0); HGB 12.6 g/dL (13.0-17.0); Lymphocytes # (A) 1.27 X 10*3/uL (0.90-5.00); Lymphocytes % (A) 13.9 %; MCH 31.6 pg (27.0-32.0); MCHC 33.1 g/dL (32.0-37.0); MCV 95.5 FL (80.0-97.0); Mean Platelet Volume 9.8 FL (9.5-12.2); Monocytes % (A) 14.3 %; NRBC Per 100 WBC 0 X 10*3/uL (0.00-0.01); Neutrophils # (A) 6.31 X 10*3/uL (1.80-7.70); Neutrophils % (A) 69.4 %; Platelet Count 163 X 10*3/uL (140-440); RBC 3.99 X 10*6/uL (4.40-5.60); RDW 13.5 % (11.5-14.5); WBC 9.11 X 10*3/uL (4.50-10.00)
[2023-07-30] MEDS: ATORVASTATIN 40 MG TAB PO SCH (09:37)
[2023-07-30] MEDS: METOPROLOL SUCCINATE (ER) 25 MG TAB.ER.24H PO SCH (09:37)
[2023-07-30] MEDS: AMIODARONE 200 MG TAB PO SCH (09:37)
--- NOTE | 2023-07-30 10:25 | P.PN ---
Subjective Progress Note Date: 07/30/23 Principal diagnosis: Status post right total knee arthroplasty Patient evaluated at bedside today, he is resting comfortably. Patient is feeling a lot better today. Patient's is hoping to be discharged home today. He does have a lot of family help at home. Denies headaches, lightheadedness, chest pain or shortness of breath Objective - Vital Signs Vital signs: Vital Signs Temp 97.5 F L 07/30/23 07:49 Pulse 72 07/30/23 07:49 Resp 16 07/30/23 07:49 BP 127/75 07/30/23 07:49 Pulse Ox 97 07/30/23 07:49 FiO2 Intake & Output 07/29/23 07/30/23 07/30/23 18:59 06:59 18:59 Intake Total 800 Output Total 550 Balance 250 Intake: Oral 800 Output: Urine 550 Other: # Voids 5 # Bowel Movements 1 - Exam Right lower extremity: Incision is clean, dry, and intact. The foam dressing is in good condition. There is minimal soft tissue swelling and ecchymosis surrounding the medial and lateral aspects of the incision. Calf is soft, no tenderness with palpation. Plantar flexion, dorsiflexion, EHL, FHL are intact. Sensory exam to light touch throughout the extremity is intact, dorsal pedis pulses 2+. - Labs CBC & Chem 7: 07/30/23 05:33 07/29/23 06:19 Labs: Abnormal Lab Results - Last 24 Hours (Table) 07/29/23 07/29/23 07/30/23 Range/Units 06:19 06:19 05:33 WBC 10.06 H (4.50-10.00) X 10*3/uL RBC 4.25 L 3.99 L (4.40-5.60) X 10*6/uL Hgb 12.6 L (13.0-17.0) g/dL Hct 38.1 L (39.6-50.0) % Immature Gran # 0.05 H (0.00-0.04) X 10*3/uL Monocytes # 1.30 H (0.20-1.00) X 10*3/uL Calcium 8.6 L (8.7-10.3) mg/dL Total Protein 5.7 L (6.2-8.2) g/dL Albumin 3.4 L (3.8-4.9) g/dL Albumin/Globulin Ratio 1.48 L (1.60-3.17) Ratio Assessment and Plan Assessment: Postoperative day #3 status post right total knee arthroplasty Plan: Pain control, plan for discharge home on [place] 7.5 mg/325 mg and tramadol 50 mg. Stool softeners were also be prescribed DVT prophylaxis, patient will resume his normally prescribed Xarelto Wound care instructions were discussed, this showering. On-Q pain catheter to be removed prior to discharge Encourage incentive spirometer Home nursing/therapy after discharge Other medical specialty recommendations appreciated Discharge planning: Patient will be discharged home today Time with Patient: Less than 30
--- NOTE | 2023-07-30 10:27 | P.DS ---
Providers Date of admission: 07/29/23 13:26 Expected date of discharge: 07/30/23 Attending physician: Mac Souza Consults: 07/27/23 15:08 Consult Physician Routine Consulting Provider: Nedra Quigley Consult Reason/Comments: Medical management Do you want consulting provider notified?: Yes 07/27/23 15:11 Consult Physician Routine Consulting Provider: Neil Magaña Consult Reason/Comments: Atrial fibrillation Do you want consulting provider notified?: Yes 07/28/23 09:59 Consult Physician Routine Consulting Provider: Mayela Levi Consult Reason/Comments: Medical management Do you want consulting provider notified?: Yes Primary care physician: Yvon Hernandez [facility] Course: Date of admission: [] Date of discharge: [] Admission diagnosis: [] Discharge diagnosis: [] Attending physician: [] Surgical procedures: [] Brief history: Patient is a [] with a history of []. At this point patient has failed conservative treatment measures and has opted to proceed with a elective []. Hospital course: Details of patient's surgery can be found in operative report. Patient tolerated the procedure well and was subsequently transported to orthopedic floor. Patient's orthopeidc and medical care was provided daily. Patient had daily laboratory tests performed for evaluation of overall blood counts []. Patient had daily physical therapy to include strengthening range of motion as well as education with walker ambulation. Patient was treated with [Xarelto] for their postoperative DVT prophylaxis during their inpatient stay. Patient was noted to have a relatively uneventful postoperative course. Patient reported satisfactory pain control with oral pain medications by postoperative day []. Patient showed satisfactory progress with physical therapy. Patient moved steadily through the program and had no difficulty meeting the goals by postoperative day []. Given patient's otherwise satisfactory course and having met physical therapy goals, plan is to discharge patient [home] on postoperative day []. Discharge condition/disposition: Patient will be discharged [home] in stable condition. Discharge medications: Instructions are given on resumption of patient's normal daily medications per primary care recommendation, in addition patient will be prescribed []. Discharge instructions: 1. Wound care and infection precautions, [keep incision dry and covered while showering], no lotions, creams, moisturizers. No soaking, tubs, pools, hottubs. Do not scrub over the incision. 2. Weight-bear [as tolerated] with walker / cane until follow-up. 3. Ice and elevate when necessary. Do not exceed 20 minutes per hour with ice pack. 4. Utilize compression sleeve until seen at first follow up appointment. 5. Visiting nursing care. 6. Home physical therapy [including home CPM]. 7. Pain meds and anticoagulants per prescription. 8. Pain medication has potential to cause constipation. Increase oral fluid and fiber intake. Contact primary care provider if you have not had a bowel movement within 48 hours after discharge 9. No anti-inflammatory medication until discussed at first post operative visit, this including Motrin, Aleve, Mobic, Diclofenac, [Aspirin]. 10. Follow up in office at 2 weeks postop with [facility] PA-C/Socrates Lord 11. Follow up with your primary care doctor 7-10 days after discharge. 12. Contact [facility] with any questions, . Procedures: Right total knee arthroplasty Patient Condition at Discharge: Good Plan - Discharge Summary Discharge Rx Participant: Yes New Discharge Prescriptions: New Sennosides/Docusate Sodium [Senna-S 8.6-50 mg Tablet] 2 each PO DAILY PRN #30 tablet PRN Reason: Constipation traMADol HCl [Ultram] 50 mg PO Q6H PRN #28 tab PRN Reason: Pain HYDROcodone/APAP 7.5-325MG [[place] 7.5] 1 each PO Q6HR PRN #28 tab PRN Reason: Pain No Action Levothyroxine Sodium [Synthroid] 100 mcg PO HS Losartan [Cozaar] 50 mg PO DAILY Rivaroxaban [Xarelto] 20 mg PO HS Furosemide [Lasix] 40 mg PO QAM Metoprolol Tartrate 12.5 mg PO QAM Amiodarone [Cordarone] 200 mg PO Q48H Atorvastatin [Lipitor] 40 mg PO DAILY Discharge Medication List Levothyroxine Sodium [Synthroid] 100 mcg PO HS 04/17/17 [History] Amiodarone [Cordarone] 200 mg PO Q48H 07/29/22 [History] Furosemide [Lasix] 40 mg PO QAM 07/29/22 [History] Losartan [Cozaar] 50 mg PO DAILY 07/29/22 [History] Metoprolol Tartrate 12.5 mg PO QAM 07/29/22 [History] Rivaroxaban [Xarelto] 20 mg PO HS 07/29/22 [History] Atorvastatin [Lipitor] 40 mg PO DAILY 01/23/23 [History] HYDROcodone/APAP 7.5-325MG [[place] 7.5] 1 each PO Q6HR PRN #28 tab 07/30/23 [Rx] Sennosides/Docusate Sodium [Senna-S 8.6-50 mg Tablet] 2 each PO DAILY PRN #30 tablet 07/30/23 [Rx] traMADol HCl [Ultram] 50 mg PO Q6H PRN #28 tab 07/30/23 [Rx] Follow up Appointment(s)/Referral(s): [facility] [NON-STAFF] - 1-2 Days ([facility] will call you to schedule your in home nursing and physical therapy visits. ) [facility],Equipment [NON-STAFF] - 1-2 Days (Please call [facility] once home to arrange delivery of the Continuous Passive Motion (CPM) machine. ) Antonio Clark PAC [PHYSICIAN MASTERCAM PROGRAMMER] - 08/12/23 1:30 pm Activity/Diet/Wound Care/Special Instructions: Orthopedic Discharge Instructions: 1. Wound care and infection precautions, keep incision dry and covered while showering, no lotions, creams, moisturizers. No soaking, pools, hot tubs. Do not scrub over incision. 2. Weight-bear as tolerated with walker / cane until follow-up. 3. Ice and elevate when necessary. Do not exceed 20 minutes per hour with ice pack. 4. Utilize compression sleeve until seen at first follow up appointment. 5. Pain meds and anticoagulants per prescription. 6. Pain medication has potential to cause constipation. Increase oral fluid and fiber intake. Contact primary care provider if you have not had a bowel movement within 48 hours after discharge. 7. No anti-inflammatory medication until discussed at first post operative visit, this including Motrin, Aleve, Mobic, Diclofenac. 8. Follow up in office at 2 weeks postop with [facility] PA-C/Socrates Blum PA-C 9. Follow up with your primary care doctor 7-10 days after discharge. 10. Contact [facility] with any questions, . Wound care instructions: 1. Okay to remove dressing is a 08/03/2023 2. Okay to shower directly over the incision after removal of dressing Discharge Disposition: HOME WITH HOME HEALTH SERVICES
[2023-07-30] MEDS: MULTIVITAMINS, THERA 1 EACH TAB PO SCH (11:04)
--- NOTE | 2023-07-30 13:10 | P.PN ---
Subjective Progress Note Date: 07/30/23 This is a very pleasant 77-year-old male patient who follows with Dr. Hernandez as his primary care provider. He also follows in our office with Dr. 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 He had provided preop clearance for the patient who was brought in yesterday electively for a right total knee arthroplasty. He is seen today in consultation on the regular medical floor. The patient is awake and alert in no acute distress. Sitting up in a chair at the bedside. Maintaining O2 saturations in the low 90s on 1 L/m per nasal cannula. He's afebrile. Hemodynamically stable. He denies any worsening shortness of breath, cough or congestion. White count 8.3. H ematoma 13.5. Platelets 159. He is continued on Xarelto. Amiodarone is 200 mg every 48 hours. Pain pump is in place. The patient is seen today 07/29/2023 in follow-up on the regular medical floor. He is currently sitting up in chair. Awake and alert in no acute distress. He did desaturate into the 80s on room air once tested. He is currently in the 90s on 2 L/m per nasal cannula. Afebrile. Hemodynamically stable. He is encouraged regarding increased use of the incentive spirometer and cough and deep breathing exercises. Count 10.0. Hemoglobin 13.6. Sodium 135. Potassium 4.0. Bicarb 24. BUN 13. Creatinine 0.8. He is still requiring Dilaudid alternating with [place] regarding this pain. He is anticoagulated with Xarelto. The patient is seen today 07/30/2023 in follow-up on the regular medical floor. He is currently resting comfortably in bed. Awake and alert in no acute distress. Maintaining good O2 saturations in the 90s on room air. He's afebrile. Hemodynamically stable. White count 9.1. Hemoglobin 12.6. Platelets 163. Working well with the incentive spirometer. Anitcoagulated with Xarelto. Objective - Vital Signs Vital signs: Vital Signs Temp 97.5 F L 07/30/23 07:49 Pulse 72 07/30/23 07:49 Resp 16 07/30/23 07:49 BP 127/75 07/30/23 07:49 Pulse Ox 95 07/30/23 11:07 FiO2 Intake & Output 07/29/23 07/30/23 07/30/23 18:59 06:59 18:59 Intake Total 800 Output Total 550 Balance 250 Intake: Oral 800 Output: Urine 550 Other: # Voids 5 2 # Bowel Movements 1 - Exam GENERAL EXAM: Alert, 77-year-old male, on room air, comfortable in no apparent distress. HEAD: Normocephalic. EYES: Normal reaction of pupils, equal size. NOSE: Clear with pink turbinates. THROAT: No erythema or exudates. NECK: No masses, no JVD. CHEST: No chest wall deformity. LUNGS: Equal air entry with no crackles, wheeze, rhonchi or dullness. CVS: S1 and S2 normal with no audible murmur, regular rhythm. ABDOMEN: No hepatosplenomegaly, normal bowel sounds, no guarding or rigidity. SPINE: No scoliosis or deformity SKIN: No rashes CENTRAL NERVOUS SYSTEM: No focal deficits, tone is normal in all 4 extremities. EXTREMITIES: Dressing to right knee dry and intact. No clubbing, no cyanosis. Peripheral pulses are intact. - Labs CBC & Chem 7: 07/30/23 05:33 07/29/23 06:19 Labs: Abnormal Lab Results - Last 24 Hours (Table) 07/30/23 Range/Units 05:33 RBC 3.99 L (4.40-5.60) X 10*6/uL Hgb 12.6 L (13.0-17.0) g/dL Hct 38.1 L (39.6-50.0) % Immature Gran # 0.05 H (0.00-0.04) X 10*3/uL Monocytes # 1.30 H (0.20-1.00) X 10*3/uL Assessment and Plan Assessment: Osteoarthritis and pain of the right knee, status post right knee arthroplasty. Postoperative day #3 Atrial fibrillation, anticoagulated with Xarelto Interstitial lung disease possibly amiodarone related Hypothyroidism Hypertension Gas esophageal reflux disease without esophagitis Hyperlipidemia History of cryptogenic organizing pneumonia Plan: The patient was seen and evaluated Labs and medications reviewed Stable and on room air Encouraged regarding the increased use the incentive spirometer Increase his activity as tolerated Anticoagulated with Xarelto Home once cleared by orthopedics I have personally seen and examined the patient, performed the documentation and the assessment and plan as written. Number of minutes spent on the visit: 10.
--- NOTE | 2023-07-30 13:37 | P.PN ---
Subjective Progress Note Date: 07/30/23 Patient is a very pleasant 77-year-old male with a past medical history of atrial fibrillation/flutter status post cardiac ablation currently on anticoagulation with Xarelto, hypertension, hyperlipidemia, HFrEF with EF of 40- 45%, and hypothyroidism. He is currently admitted under orthopedic surgery team status post right total knee arthroplasty completed on 07/27/23 by secondary to severe right knee osteoarthritis. Patient was mildly hypoxic post surgery thought to be related to atelectasis. Encouraged IS. Pulmonology following. Cardiology also following for history of A-Fib. 07/29 Patient was seen and examined. Worked with PT this morning. Reports 10/10 severity knee pain. Urinating freely. No bowel movement but passing gas. 07/30 Patient was seen and examined. Better knee pain today. CBC Hg 12.6. Plans for discharge home. General: non toxic, no distress, appears at stated age Derm: warm, dry Head: atraumatic, normocephalic, symmetric Eyes: EOMI, no lid lag, anicteric sclera Mouth: no lip lesion, mucus membranes moist Cardiovascular: S1S2 reg, no murmur Lungs: CTA bilateral, no rhonchi, no rales , no accessory muscle use Ext: no gross muscle atrophy, no edema, no contractures Neuro: no focal neuro deficits Psych: Alert, oriented, appropriate affect Based on my assessment of this patient, this patient meets a moderate complexity level of care. Patient has a chronic diagnosis of A-Fib, HTN, HLD, HFrEF, hypothyroidism, COOP. Mild postoperative hypoxia: Likely due to postoperative atelectasis. Continue IS. Pulmonology on board. Paroxysmal atrial fibrillation: Currently maintaining sinus mechanism. Amiodarone 200 mg PO Q48H. Metoprolol 12.5 mg PO QD. Xarelto 20 mg PO QHS for AC. Cardiology following. Hypertension Hyperlipidemia Chronic systolic heart failure: Lasix 40 mg PO QD. Metoprolol as above. Cardiology recommends holding Losartan. History of coronary artery disease: Atorvastatin 40 mg PO daily. Xarelto and Metoprolol as above. Severe osteoarthritis Status post right total knee arthroplasty: Management per primary admitting orthopedic surgery team including pain management, weightbearing, wound/dressing care, and PT/OT. Patient is medically stable for discharge. Med rec complete. CODE STATUS: FULL CODE. DVT Prophylaxis: Xarelto GI Prophylaxis: Designated medical POA if patient is not able to make medical decisions for themselves: I have reviewed the following emergency management consultant notes: Ortho, Cardio, Pulm note. I have reviewed the results of the following tests: CBC. I have ordered the following tests: I have discussed the care of this patient with the following independent historian: I have independently interpreted the following test below: I have discussed the management of this patient with the following physician: Objective - Vital Signs Vital signs: Vital Signs Temp 97.5 F L 07/30/23 07:49 Pulse 72 07/30/23 07:49 Resp 16 07/30/23 07:49 BP 127/75 07/30/23 07:49 Pulse Ox 95 07/30/23 11:07 FiO2 Intake & Output 07/29/23 07/30/23 07/30/23 18:59 06:59 18:59 Intake Total 800 Output Total 550 Balance 250 Intake: Oral 800 Output: Urine 550 Other: # Voids 5 2 # Bowel Movements 1 - Labs CBC & Chem 7: 07/30/23 05:33 07/29/23 06:19 Labs: Abnormal Lab Results - Last 24 Hours (Table) 07/30/23 Range/Units 05:33 RBC 3.99 L (4.40-5.60) X 10*6/uL Hgb 12.6 L (13.0-17.0) g/dL Hct 38.1 L (39.6-50.0) % Immature Gran # 0.05 H (0.00-0.04) X 10*3/uL Monocytes # 1.30 H (0.20-1.00) X 10*3/uL
== END 2023-07-30 14:42 | disposition home health service (06) | DRG 470 ==
LOC: OR 11:09 → 4SSUR 15:02 → OR 07-29 13:26
PROVIDERS: ADMIT Orthopaedic Surgery; ATTEND Orthopaedic Surgery
PROC: 0SRC0J9 Replacement of Right Knee Joint with Synthetic Substitute, Cemented, Open Approach (ICD-10-PCS; principal; 2023-07-27 14:50)
DX: M17.11 Unilateral primary osteoarthritis, right knee (principal); I42.9 Cardiomyopathy, unspecified; I48.92 Unspecified atrial flutter; I50.42 Chronic combined systolic (congestive) and diastolic (congestive) heart failure; J98.11 Atelectasis; J84.9 Interstitial pulmonary disease, unspecified; E03.9 Hypothyroidism, unspecified; E78.5 Hyperlipidemia, unspecified; H91.90 Unspecified hearing loss, unspecified ear; I11.0 Hypertensive heart disease with heart failure; T46.2X5A Adverse effect of other antidysrhythmic drugs, initial encounter; I25.10 Atherosclerotic heart disease of native coronary artery without angina pectoris; I48.0 Paroxysmal atrial fibrillation; Z87.01 Personal history of pneumonia (recurrent); K21.00 Gastro-esophageal reflux disease with esophagitis, without bleeding; R09.02 Hypoxemia; Z79.01 Long term (current) use of anticoagulants; Z79.890 Hormone replacement therapy; Z79.899 Other long term (current) drug therapy; Z96.652 Presence of left artificial knee joint; Z97.4 Presence of external hearing-aid; Z28.311 Partially vaccinated for COVID-19
CPT/HCPCS: 64448; 64999; 80053; 83735; 85025; 85027; 93005; 94760